=== PATIENT | male | born 1975 | race Caucasian/White ===

== ENCOUNTER 2016-12-25 17:22 | Emergency (ER) | payer BC ==
[~2016-12-25] VITALS: Ht 179.1 cm; Wt 75.0 kg
[~2016-12-25 17:22] MED LIST: ACET-1256 PO; ALBU1AER9 INH; ALPR-411 PO; ASPI-435 PO; CLX/20 PO; HYDR-5688 PO; IBUP-103 PO; LORA10TA57 PO; MULT1TAB30 PO; OMEP20CA9 PO; SYMIN160 INH; TRAZ50TA35 PO
[2016-12-25 17:39] VITALS: TEMP 36.9; Ht 179.1 cm; Wt 75.0 kg
[2016-12-25] MEDS ORDERED: VNTHFA/IN INH (18:08)
[2016-12-25] MEDS ORDERED: PRED10TA PO (18:09)
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
--- NOTE | 2016-12-25 19:35 | DIAGNOSTIC IMAGING REPORT ---
PA CHEST WITH RIGHT-SIDED RIB SERIES CLINICAL HISTORY: Right chest wall pain. FINDINGS: A PA chest radiograph with 4 additional views from a right-sided rib series is compared to study dated 03/23/2016. The cardiomediastinal silhouette is unremarkable. The lungs and pleural spaces are clear. No pneumothorax is seen. There is no radiographic evidence of right-sided rib fracture as clinically queried. Chronic posttraumatic deformity is noted in the right clavicle. The remainder of the bony thorax is grossly intact. IMPRESSION: 1. The lungs are clear. 2. There is no radiographic evidence of acute/distracted right-sided rib fracture as clinically queried. Electronically signed by: Ashu Bettencourt M.D. 12/25/2016 7:34 PM Dictated Date/Time: 12/25/2016 7:32 PM
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
[2016-12-25] MEDS ORDERED: KETOROLAC TROMETHAMINE 60 MG/2 ML VIAL IM STA (20:16)
[2016-12-25 20:37] VITALS: BP 132/75; PULSE 92; O2SAT 98
== END 2016-12-25 20:35 | disposition home or self-care (01) ==
LOC: C.EDB 17:23
DX: T14.8 Other injury of unspecified body region (principal); Y04.0XXA Assault by unarmed brawl or fight, initial encounter; J45.40 Moderate persistent asthma, uncomplicated; K21.9 Gastro-esophageal reflux disease without esophagitis; F17.200 Nicotine dependence, unspecified, uncomplicated; Z79.82 Long term (current) use of aspirin; Z96.659 Presence of unspecified artificial knee joint

== ENCOUNTER 2017-02-24 07:22 | Emergency (ER) | payer BC ==
[~2017-02-24] VITALS: Ht 175.3 cm; Wt 78.0 kg
[~2017-02-24 07:22] MED LIST changes: -ALBU1AER9 INH; -CLX/20 PO; -HYDR-5688 PO; +LORA-749 PO; -LORA10TA57 PO; +PRED10TA PO; +VNTHFA/IN INH
[2017-02-24 07:26] VITALS: TEMP 36.7; Ht 175.3 cm; Wt 78.0 kg
--- NOTE | 2017-02-24 07:54 | EMERGENCY ROOM VISIT NOTE ---
History First contact with patient: 07:31 Chief Complaint: LACERATION/CUT (SUT/DERMABOND) Stated Complaint: CUT ON HEAD Nursing Triage Summary: Patient states he tripped over a kitten this am and hit his head on a wooden drawer. Patient unsure if he passed out, but he got back up and fell back down. History of Present Illness The patient is a 41 year old male who presents to the Emergency Room with complaints of fall. The patient states that this morning he was walking down the steps and accidentally stepped on one of his cats foot or tail. He states that that caused him to fall down approximately 5 steps. He states that he hit his head on a wooden drawer. He reports a small laceration to the top of his head. The patient states that he then stood up very quickly and believes he passed out. He states he is having trouble concentrating. He reports a headache and neck pain. He rates his discomfort an 8/10. He states he has mild pain in the right shoulder but can move without any difficulty. He denies any pain in his chest or trouble breathing. He denies any abdominal pain. The patient states that he has had several recent head injuries and concussions. He does not take blood thinners. His tetanus is up-to-date. Review of Systems A 10 system review of systems was completed with positives and pertinent negatives listed in the HPI. Past Medical/Surgical History Medical Problems: (1) Allergic rhinitis (2) Asthma, moderate persistent (3) Compression fracture of spine (4) Depress Disorder-Unspec (5) Esophageal Reflux (6) GERD (gastroesophageal reflux disease) (7) Scoliosis (8) Tobacco use disorder Surgical Problems: (1) History of nasal septoplasty (2) History of repair of anterior cruciate ligament of left knee (3) History of repair of anterior cruciate ligament of right knee (4) Hx of total knee arthroplasty (5) Knee Joint Replacement Status Family History Cancer Gallbladder disease Heart disease Hypertension Lung disease Social History Smoking Status: Never Smoker Alcohol Use: occasionally Drug Use: none Marital Status: Housing Status: lives with family Occupation Status: employed Current/Historical Medications Scheduled Albuterol Hfa (Ventolin Hfa), 2 PUFFS INH Q4 Aspirin (Aspirin 81), 81 MG PO DAILY Budesonide/Formoterol Fumarate (Symbicort 160/4.5 Inhaler ), 2 PUFFS INH BID Citalopram Hydrobromide (Celexa), 10 MG PO DAILY Loratadine & Pseudoephedrine (Claritin-D 24 Hour), 1 TAB PO DAILY Multiple Vitamins W/ Minerals (Tonny Multivitamin For Men), 1 TABLET PO DAILY Omeprazole (Prilosec), 20 MG PO BID Testosterone (Testosterone), TOP QAM Scheduled PRN Acetaminophen (Tylenol), 1,500 MG PO Q8 PRN for Pain Alprazolam (Alprazolam), 0.5 MG PO DAILY PRN for Anxiety Ibuprofen Tab (Advil), 600 MG PO Q8 PRN for Pain Trazodone Hcl (Trazodone), 50-100 MG PO HS PRN for Sleep Allergies Coded Allergies: Animal Dander (Unverified Allergy, Mild, ITCHING EYES, SNEEZING,, 02/24/17) Uncoded Allergies: COLD WATER (Adverse Reaction, Intermediate, HIVES, 02/24/17) Physical Exam Vital Signs Date Time Temp Pulse Resp B/P Pulse Ox O2 Delivery O2 Flow Rate FiO2 02/24/17 09:09 96 20 150/91 99 02/24/17 07:26 36.7 104 18 120/82 97 Room Air Physical Exam VITALS: Vitals are noted on the nurse's note and reviewed by myself. Vital signs stable. GENERAL: This is a 41-year-old male, in no acute distress, nondiaphoretic, well- developed well-nourished. SKIN: The skin was without rashes, erythema, edema, or bruising. There is a small 1 cm gaping laceration to the top of the head. There is mild bleeding. There is no tenting of the skin. Capillary reflex less than 2 seconds. HEAD: Normocephalic atraumatic. EARS: External auditory canals clear, tympanic membranes pearly dixon without erythema or effusion bilaterally. No hemotympanums. No acevedo sign. No mastoid tenderness. EYES: Pupils equal round and reactive to light and accommodation. Conjunctivae without injection, sclerae without icterus. Extraocular movements intact. NOSE: Patent, turbinates without inflammation or discharge. No sinus tenderness. No septal hematoma or bleeding. FACE: No facial tenderness. Full range of motion of the jaw without tenderness. MOUTH: Mucous membranes moist. Pharynx without erythema or exudate. Uvula midline. Airway patent. Tongue does not deviate. NECK: Supple without nuchal rigidity. Cervical spine is mildly tender. Full range of motion of the neck without tenderness. No JVD. HEART: Regular rate and rhythm without murmurs gallops or rubs. LUNGS: Clear to auscultation bilaterally without wheezes, rales or rhonchi. No retractions or accessory muscle use. No chest tenderness. MUSCULOSKELETAL: No muscle atrophy, erythema, or edema noted. Full range of motion without joint tenderness in all extremities. No tenderness to palpation. Normal gait. Strength 5/5 throughout. NEURO: Patient was alert and oriented to person place and time. Normal Mini- Mental status exam. No focal neurological deficits. Medical Decision & Procedures ER Provider Diagnostic Interpretation: CT SCAN OF THE CERVICAL SPINE CLINICAL HISTORY: Fall. Neck pain. COMPARISON STUDY: CT scan of cervical spine dated 05/12/2015. TECHNIQUE: CT scan of the cervical spine is performed from the skull base to the upper thoracic spine. Images are reviewed in the axial, sagittal, and coronal planes. IV contrast was not administered for this examination. CT DOSE: 515.85 mGycm FINDINGS: Skeletal structures: The skeletal structures are well mineralized. There is no evidence of fracture or subluxation involving the cervical spine. Vertebral body height and alignment are maintained. The odontoid process and lateral masses are intact. The atlantoaxial articulation is preserved noting minimal productive degenerative change. The spinous processes appear intact. Mild degenerative sclerosis is seen at C4-C5. Chronic posttraumatic deformity suggested in the distal right clavicle. Intervertebral discs: There is mild degenerative disc space narrowing seen at C3-C4 and C4-C5. Central canal: A posterior discussed by complex at C4-C5 may contribute to mild acquired compromise of the central canal. Soft tissues: The prevertebral and paraspinous soft tissues are within normal limits. Calvarium: The visualized calvarium at the skull base appears intact. Brain parenchyma: Partially visualized brain parenchyma the skull base is within normal limits. Sinuses and mastoids: Trace mucosal thickening is seen within the left maxillary antrum and the ethmoid sinuses. The mastoid air cells are well pneumatized. Lung apices: Clear as visualized. IMPRESSION: There is no evidence of fracture or subluxation involving the cervical spine. HEAD CT NONCONTRAST CT DOSE: 729.78 mGycm HISTORY: fall, head injury TECHNIQUE: Multiaxial CT images of the head were performed without the use of intravenous contrast. Automated exposure control was utilized for this study. Comparison: Head CT 12/25/2016. Findings: The paranasal sinuses and mastoid air cells are clear. The calvarium and skull base are intact. The ventricles and sulci are within normal limits. There is no mass, hematoma, midline shift, or acute infarct. Impression: No acute intracranial abnormality. Medications Administered Medications (Trade) Dose Ordered Sig/Héctor Route Start Time Stop Time Status Last Admin Dose Admin Acetaminophen (Tylenol Tab) 1,000 mg NOW STAT PO 02/24/17 08:50 02/24/17 08:51 DC 02/24/17 08:55 1,000 MG Procedure A 1 cm scalp laceration was repaired. Using sterile technique the wound was cleaned with Betadine. The area was sterilely draped. the wound was copiously irrigated under pressure with sterile saline. The wound was explored and there were no deep structures such as tendons, bone, or ligaments present. The laceration was repaired using kaelyn with the wound edges being well approximated. The patient tolerated the procedure well. The bleeding stopped. The area was cleaned with sterile saline and dressed with bacitracin ointment and bandage. ED Course The patient was seen and examined. Previous visits were reviewed. The patient underwent the above imaging. There is no intracranial bleeding, skull fracture or cervical spine fracture. A small scalp laceration was repaired as above. The patient does have symptoms suggestive of concussion. He was given information for the concussion clinic for follow-up. He was given 1 g oral Tylenol. I cautioned on the use of any stronger pain medication such as narcotics in the setting of head injury. The patient should return to the ER with any worsening symptoms. Medical Decision The differential diagnosis includes intracranial bleeding, skull fracture, cervical spine fracture, contusion, laceration, concussion, among others Impression Primary Impression: Closed head injury Additional Impressions: Concussion Cervical strain Fall Scalp laceration Departure Information Dispostion Home / Self-Care Condition GOOD Referrals Miguelina Proctor DO (PCP) Patient Instructions Concussion, My [facility] Additional Instructions Motrin 600 mg every 6-8 hours for pain Contact the concussion clinic at [facility] sports medicine ([phone]) to schedule a follow-up appointment for further evaluation and management. Their office is located at [address] [place] [address]. [address] No vigorous activity or athletics for one week after symptoms resolve Return with any worsening symptoms Read head injury handout and return for any symptoms. Keep wound clean and dry. Do not allow any crusting or dried blood to accumulate on kaelyn. If this occurs, use a 1:1 solution of hydrogen peroxide/water on a Q-tip to clean the wound. Use an antibiotic ointment for 3-4 days, then let wound dry. Staple removal in 8 days. Return sooner for any signs of infection (increasing redness, swelling, drainage). Ice and elevate for swelling and pain. Problem Qualifiers Primary Impression: Closed head injury Encounter type: initial encounter Qualified Codes: S09.90XA - Unspecified injury of head, initial encounter Additional Impressions: Concussion Encounter type: initial encounter Cervical strain Encounter type: initial encounter Qualified Codes: S16.1XXA - Strain of muscle, fascia and tendon at neck level, initial encounter Fall Encounter type: initial encounter Qualified Codes: W19.XXXA - Unspecified fall, initial encounter Scalp laceration Encounter type: initial encounter Qualified Codes: S01.01XA - Laceration without foreign body of scalp, initial encounter
--- NOTE | 2017-02-24 08:36 | DIAGNOSTIC IMAGING REPORT ---
CT SCAN OF THE CERVICAL SPINE CLINICAL HISTORY: Fall. Neck pain. COMPARISON STUDY: CT scan of cervical spine dated 05/12/2015. TECHNIQUE: CT scan of the cervical spine is performed from the skull base to the upper thoracic spine. Images are reviewed in the axial, sagittal, and coronal planes. IV contrast was not administered for this examination. CT DOSE: 515.85 mGycm FINDINGS: Skeletal structures: The skeletal structures are well mineralized. There is no evidence of fracture or subluxation involving the cervical spine. Vertebral body height and alignment are maintained. The odontoid process and lateral masses are intact. The atlantoaxial articulation is preserved noting minimal productive degenerative change. The spinous processes appear intact. Mild degenerative sclerosis is seen at C4-C5. Chronic posttraumatic deformity suggested in the distal right clavicle. Intervertebral discs: There is mild degenerative disc space narrowing seen at C3-C4 and C4-C5. Central canal: A posterior discussed by complex at C4-C5 may contribute to mild acquired compromise of the central canal. Soft tissues: The prevertebral and paraspinous soft tissues are within normal limits. Calvarium: The visualized calvarium at the skull base appears intact. Brain parenchyma: Partially visualized brain parenchyma the skull base is within normal limits. Sinuses and mastoids: Trace mucosal thickening is seen within the left maxillary antrum and the ethmoid sinuses. The mastoid air cells are well pneumatized. Lung apices: Clear as visualized. IMPRESSION: There is no evidence of fracture or subluxation involving the cervical spine. Electronically signed by: Ashu Bettencourt M.D. 02/24/2017 8:34 AM Dictated Date/Time: 02/24/2017 8:29 AM
[2017-02-24] MEDS ORDERED: CITA10TA8 PO (08:37)
[2017-02-24] MEDS ORDERED: TEST1GEL15 TOP (08:39)
[2017-02-24] MEDS ORDERED: ACETAMINOPHEN 500 MG TAB PO STA (08:50)
--- NOTE | 2017-02-24 08:52 | DIAGNOSTIC IMAGING REPORT ---
HEAD CT NONCONTRAST CT DOSE: 729.78 mGycm HISTORY: fall, head injury TECHNIQUE: Multiaxial CT images of the head were performed without the use of intravenous contrast. Automated exposure control was utilized for this study. Comparison: Head CT 12/25/2016. Findings: The paranasal sinuses and mastoid air cells are clear. The calvarium and skull base are intact. The ventricles and sulci are within normal limits. There is no mass, hematoma, midline shift, or acute infarct. Impression: No acute intracranial abnormality. Electronically signed by: Cayetano Morris M.D. 02/24/2017 8:51 AM Dictated Date/Time: 02/24/2017 8:47 AM
[2017-02-24 09:09] VITALS: BP 150/91; PULSE 96; O2SAT 99
== END 2017-02-24 09:11 | disposition home or self-care (01) ==
LOC: C.EDB 07:22
DX: S01.01XA Laceration without foreign body of scalp, initial encounter (principal); S16.1XXA Strain of muscle, fascia and tendon at neck level, initial encounter; S06.0X0A Concussion without loss of consciousness, initial encounter; W10.9XXA Fall (on) (from) unspecified stairs and steps, initial encounter; J45.40 Moderate persistent asthma, uncomplicated; K21.9 Gastro-esophageal reflux disease without esophagitis; F32.9 Major depressive disorder, single episode, unspecified; M41.9 Scoliosis, unspecified; Z96.659 Presence of unspecified artificial knee joint; Z82.49 Family history of ischemic heart disease and other diseases of the circulatory system; Z80.9 Family history of malignant neoplasm, unspecified; Z79.82 Long term (current) use of aspirin; Z79.899 Other long term (current) drug therapy

== ENCOUNTER → 2017-09-29 | Outpatient (CLI) | payer BC ==
[~2017-09-29] MED LIST changes: +CITA10TA8 PO; -PRED10TA PO; +TEST1GEL15 TOP
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
== END | disposition home or self-care (01) ==
LOC: C.RAD 19:08
PROVIDERS: ATTEND Family Medicine
DX: S62.609A Fracture of unspecified phalanx of unspecified finger, initial encounter for closed fracture (principal); M25.539 Pain in unspecified wrist; S59.811A Other specified injuries right forearm, initial encounter; X58.XXXA Exposure to other specified factors, initial encounter; M21.941 Unspecified acquired deformity of hand, right hand

== ENCOUNTER → 2017-09-30 | Outpatient (CLI) | payer BC ==
--- NOTE | 2017-09-30 15:28 | DIAGNOSTIC IMAGING REPORT ---
R FINGER(S) MIN 2 VIEWS HISTORY: 42 years-old Male CRUSH INJURY RIGHT 3RD FINGER acute crush injury of the right third finger COMPARISON: Right hand radiographs 09/29/2017 TECHNIQUE: 3 views of the right third finger FINDINGS: There is moderate soft tissue swelling of the right third finger. No opaque foreign body, acute fracture or dislocation. There are no significant degenerative changes. IMPRESSION: Moderate soft tissue swelling without acute bony abnormality or opaque foreign body. The above report was generated using voice recognition software. It may contain grammatical, syntax or spelling errors. Electronically signed by: Antonio Fields M.D. 09/30/2017 3:27 PM Dictated Date/Time: 09/30/2017 3:26 PM
== END ==
LOC: C.RDSM 15:09
PROVIDERS: ATTEND Family Medicine
DX: S69.91XA Unspecified injury of right wrist, hand and finger(s), initial encounter (principal); X58.XXXA Exposure to other specified factors, initial encounter

== ENCOUNTER 2018-03-07 16:07 | Emergency (ER) | payer BC, OTHER ==
[~2018-03-07] VITALS: Ht 175.3 cm; Wt 86.1 kg
[2018-03-07 16:24] VITALS: TEMP 37.6; Ht 175.3 cm; Wt 86.1 kg
[2018-03-07] MEDS ORDERED: ALBUT/IPRATROP 3MG/0.5MG NEB 3 ML VIAL INH STA ×2 (17:52→18:56)
[2018-03-07] MEDS ORDERED: SODIUM CHLORIDE 0.9% 1000ML 1,000 ML IV STA (17:52)
[2018-03-07] MEDS ORDERED: KETOROLAC TROMETHAMINE 30 MG/ML VIAL IV STA (17:52)
[2018-03-07 18:12] VITALS: BP 128/85; O2SAT 96
[2018-03-07 18:18] LABS: BASO % 0.5 %; BASO ABS # 0.03 K/uL (0-0.2); EOS % 5.4 %; EOS ABS # 0.31 K/uL (0-0.5); HEMATOCRIT 38.7 % (42-52); HEMOGLOBIN 13.4 g/dL (14.0-18.0); IG# 0.01 K/uL (0.00-0.02); LYMPH % 15.1 %; LYMPH ABS # 0.87 K/uL (1.2-3.4); MEAN CELL VOLUME 86.6 fL (80-100); MEAN CORPUSCULAR HGB CONC 34.6 g/dl (32-36); MONO % 13.7 %; MONO ABS # 0.79 K/uL (0.11-0.59); NEUT % 65.1 %; NEUT ABS # 3.76 K/uL (1.4-6.5); PLATELET COUNT 207 K/uL (130-400); RED CELL DISTRIBUTION WIDTH CV 13.3 % (11.5-14.5); RED CELL DISTRIBUTION WIDTH SD 42.3 fL (36.4-46.3); WHITE BLOOD COUNT 5.77 K/uL (4.8-10.8)
[2018-03-07 18:36] LABS: ALBUMIN 3.3 gm/dl (3.4-5.0); ALT/SGPT 18 U/L (12-78); AST/SGOT 9 U/L (15-37); BLOOD UREA NITROGEN 7 mg/dl (7-18); CALCIUM 8.5 mg/dl (8.5-10.1); CARBON DIOXIDE 25 mmol/L (21-32); CREATININE 0.78 mg/dl (0.60-1.40); GLUCOSE 85 mg/dl (70-99); POTASSIUM 3.4 mmol/L (3.5-5.1); SODIUM 138 mmol/L (136-145)
[2018-03-07 18:40] LABS: ALKALINE PHOSPHATASE 93 U/L (45-117); TOTAL PROTEIN 6.8 gm/dl (6.4-8.2)
[2018-03-07 18:49] LABS: INFLUENZA B ANTIGEN Neg for Influ B (NEG)
--- NOTE | 2018-03-07 18:53 | DIAGNOSTIC IMAGING REPORT ---
CHEST 2 VIEWS ROUTINE CLINICAL HISTORY: chest pain, congestion COMPARISON STUDY: 03/23/2016 FINDINGS: The cardiac and mediastinal contours are normal. There is no evidence of focal pulmonary consolidation. There is no evidence of failure. No pleural effusions are visualized.[ There is minor interstitial prominence which is felt to be chronic. IMPRESSION: No active disease in the chest. Electronically signed by: Tarun Jimenez M.D. 03/07/2018 6:51 PM Dictated Date/Time: 03/07/2018 6:51 PM
[2018-03-07] MEDS ORDERED: AMOX875T PO (19:19)
--- NOTE | 2018-03-07 19:20 | EMERGENCY ROOM VISIT NOTE ---
History First contact with patient: 17:44 Chief Complaint: FLU LIKE SX Stated Complaint: FEVER, FATIGUE, BODYACHES, TROUBLE BREATHING History of Present Illness The patient is a 42 year old male who presents to the Emergency Room via private vehicle with complaints of "fever, fatigue, body aches, trouble breathing". The patient states that he has a history of asthma, and last week began with cold-like symptoms in the chest. He states that Tuesday these increased and now he has pain on the left side of his chest, he has a cough with production of yellow tinged sputum that was clear but again is now colored. He also has sinus congestion, sore throat and diffuse body aches. He notes a history of pneumonia, asthma and pleurisy. Review of Systems A complete 10-point Review of Systems was discussed with the patient, with pertinent positives and negatives listed in the History of Present Illness. All remaining Review of Systems questions can be considered negative unless otherwise specified. Past Medical/Surgical History Medical Problems: (1) Allergic rhinitis (2) Asthma, moderate persistent (3) Compression fracture of spine (4) Depress Disorder-Unspec (5) Esophageal Reflux (6) GERD (gastroesophageal reflux disease) (7) Scoliosis (8) Tobacco use disorder Surgical Problems: (1) History of nasal septoplasty (2) History of repair of anterior cruciate ligament of left knee (3) History of repair of anterior cruciate ligament of right knee (4) Hx of total knee arthroplasty (5) Knee Joint Replacement Status Family History Cancer Gallbladder disease Heart disease Hypertension Lung disease Social History Smoking Status: Never Smoker Alcohol Use: occasionally Drug Use: none Marital Status: Housing Status: lives with family Occupation Status: employed Current/Historical Medications Scheduled Albuterol Hfa (Ventolin Hfa), 2 PUFFS INH Q4 Amoxicillin & Pot Clavulanate (Augmentin 875-125 mg), 1 TAB PO BID Aspirin (Aspirin 81), 81 MG PO DAILY Budesonide/Formoterol Fumarate (Symbicort 160/4.5 Inhaler ), 2 PUFFS INH BID Citalopram Hydrobromide (Celexa), 10 MG PO DAILY Loratadine & Pseudoephedrine (Claritin-D 24 Hour), 1 TAB PO DAILY Multiple Vitamins W/ Minerals (Tonny Multivitamin For Men), 1 TABLET PO DAILY Omeprazole (Prilosec), 20 MG PO BID Testosterone (Testosterone), TOP QAM Scheduled PRN Acetaminophen (Tylenol), 1,500 MG PO Q8 PRN for Pain Alprazolam (Alprazolam), 0.5 MG PO DAILY PRN for Anxiety Ibuprofen Tab (Advil), 600 MG PO Q8 PRN for Pain Trazodone Hcl (Trazodone), 50-100 MG PO HS PRN for Sleep Physical Exam Vital Signs Date Time Temp Pulse Resp B/P (MAP) Pulse Ox O2 Delivery O2 Flow Rate FiO2 03/07/18 19:35 89 18 97 03/07/18 18:26 92 03/07/18 18:12 96 Room Air 03/07/18 18:12 87 15 128/85 97 Room Air 03/07/18 16:24 37.6 84 18 118/89 97 Room Air Physical Exam VITAL SIGNS - Vital signs and nursing notes were reviewed. Stable. Febrile at 37.6. GENERAL -42-year-old male appearing his stated age who is in no acute distress. Nontoxic in appearance. Communicates well with provider and answers questions appropriately. SKIN - Without rashes. No meningeal or petechial rash. HEAD - NC/AT. EYES - PERRL with EOMI bilaterally. Sclera anicteric. EARS - No deformities of external structures noted on gross examination bilaterally. External auditory canals without discharge or otorrhea. Tympanic membranes pearly dixon without retraction or bulging. No fluid or purulent material visualized behind the TM. Handle of malleus, umbo, cone of light, pars tensa/flaccid all easily visualized. NOSE - Midline and without cyanosis. No epistaxis or purulent drainage noted. MOUTH/OROPHARYNX - Without perioral cyanosis. Buccal mucosa pink and moist and without leukoplakia. Tongue midline with equal elevation of palate bilaterally. No tonsillar hypertrophy, erythema, or exudates noted. Fair dentition noted. NECK - Neck with FROM. Supple to palpation. No lymphadenopathy noted. No nuchal rigidity. LUNGS - Chest wall symmetric without accessory muscle use, intercostals retractions, or central cyanosis. Diffuse wheezing noted. CARDIAC - RRR with S1/S2. No murmur, rubs, or gallops appreciated. ABDOMEN - Abdominal contour normal without pulsations or visible masses. BS normoactive all four quadrants. No tenderness, palpable masses, hepatosplenomegaly, or ascites noted. EXTREMITIES - No clubbing or peripheral cyanosis. No pretibial edema present. +5 /5 strength noted in UE/LE bilaterally. NEUROLOGIC - Cranial nerves II through XII grossly intact. Sensory intact to light touch throughout. PSYCH - A&O, and cooperates fully with examiner. Pt is very pleasant and interacts well with examiner. Medical Decision & Procedures ER Provider Diagnostic Interpretation: CHEST 2 VIEWS ROUTINE CLINICAL HISTORY: chest pain, congestion COMPARISON STUDY: 03/23/2016 FINDINGS: The cardiac and mediastinal contours are normal. There is no evidence of focal pulmonary consolidation. There is no evidence of failure. No pleural effusions are visualized.[ There is minor interstitial prominence which is felt to be chronic. IMPRESSION: No active disease in the chest. Electronically signed by: Tarun Jimenez M.D. 03/07/2018 6:51 PM Dictated Date/Time: 03/07/2018 6:51 PM Laboratory Results 03/07/18 18:06 Red Blood Count 4.47, Mean Corpuscular Volume 86.6, Mean Corpuscular Hemoglobin 30.0, Mean Corpuscular Hemoglobin Concent 34.6, Mean Platelet Volume 9.0, Neutrophils (%) (Auto) 65.1, Lymphocytes (%) (Auto) 15.1, Monocytes (%) (Auto) 13.7, Eosinophils (%) (Auto) 5.4, Basophils (%) (Auto) 0.5, Neutrophils # (Auto ) 3.76, Lymphocytes # (Auto) 0.87, Monocytes # (Auto) 0.79, Eosinophils # (Auto ) 0.31, Basophils # (Auto) 0.03 03/07/18 18:06 Test 03/07/18 18:06 03/07/18 18:15 White Blood Count 5.77 K/uL (4.8-10.8) Red Blood Count 4.47 M/uL (4.7-6.1) Hemoglobin 13.4 g/dL (14.0-18.0) Hematocrit 38.7 % (42-52) Mean Corpuscular Volume 86.6 fL (80-100) Mean Corpuscular Hemoglobin 30.0 pg (25-34) Mean Corpuscular Hemoglobin Concent 34.6 g/dl (32-36) Platelet Count 207 K/uL (130-400) Mean Platelet Volume 9.0 fL (7.4-10.4) Neutrophils (%) (Auto) 65.1 % Lymphocytes (%) (Auto) 15.1 % Monocytes (%) (Auto) 13.7 % Eosinophils (%) (Auto) 5.4 % Basophils (%) (Auto) 0.5 % Neutrophils # (Auto) 3.76 K/uL (1.4-6.5) Lymphocytes # (Auto) 0.87 K/uL (1.2-3.4) Monocytes # (Auto) 0.79 K/uL (0.11-0.59) Eosinophils # (Auto) 0.31 K/uL (0-0.5) Basophils # (Auto) 0.03 K/uL (0-0.2) RDW Standard Deviation 42.3 fL (36.4-46.3) RDW Coefficient of Variation 13.3 % (11.5-14.5) Immature Granulocyte % (Auto) 0.2 % Immature Granulocyte # (Auto) 0.01 K/uL (0.00-0.02) Anion Gap 6.0 mmol/L (3-11) Est Creatinine Clear Calc Drug Dose 134.2 ml/min Estimated GFR () 129.0 Estimated GFR (Non- 111.3 BUN/Creatinine Ratio 8.6 (10-20) Calcium Level 8.5 mg/dl (8.5-10.1) Magnesium Level 2.2 mg/dl (1.8-2.4) Total Bilirubin 0.2 mg/dl (0.2-1) Aspartate Amino Transf (AST/SGOT) 9 U/L (15-37) Alanine Aminotransferase (ALT/SGPT) 18 U/L (12-78) Alkaline Phosphatase 93 U/L (45-117) Troponin I < 0.015 ng/ml (0-0.045) Total Protein 6.8 gm/dl (6.4-8.2) Albumin 3.3 gm/dl (3.4-5.0) Globulin 3.5 gm/dl (2.5-4.0) Albumin/Globulin Ratio 0.9 (0.9-2) Monoscreen NEG (NEG) Influenza Type A Antigen Neg for Influ A (NEG) Influenza Type B Antigen Neg for Influ B (NEG) Medications Administered Medications (Trade) Dose Ordered Sig/Héctor Route Start Time Stop Time Status Last Admin Dose Admin Sodium Chloride 1,000 ml @ 999 mls/hr Q1H1M STAT IV 03/07/18 17:52 03/07/18 18:52 DC 03/07/18 18:12 999 MLS/HR Ketorolac Tromethamine (Toradol Inj) 30 mg NOW STAT IV 03/07/18 17:52 03/07/18 17:54 DC 03/07/18 18:12 30 MG Albuterol/ Ipratropium (Duoneb) 3 ml NOW STAT INH 03/07/18 17:52 03/07/18 17:55 DC 03/07/18 18:11 3 ML Albuterol/ Ipratropium (Duoneb) 3 ml NOW STAT INH 03/07/18 18:56 03/07/18 18:57 DC 03/07/18 18:56 3 ML Medical Decision Patient was seen and evaluated as above in room D9. Review was performed of nursing notes and vital signs. After obtaining a thorough history and physical examination the above work up was performed. Chest x-ray obtained and reveals only chronic findings. Bedside EKG per my interpretation reveals normal sinus rhythm, without ectopy or ischemic change. This was a rate of 89 bpm. This was compared to EKG of March 23, 2016 and no significant change was found. CBC reveals no concerning leukocytosis. Slight anemia with hemoglobin of 13.4 noted. This was discussed with the patient. Metabolic panel reveals no evidence of kidney or liver failure. Troponin negative. Slight hypokalemia. Negative for mono screen, and influenza. I suspect he is likely experiencing a flulike illness that has exacerbated his underlying chronic asthma. No evidence of PE. Given that the patient has a sore throat, has constitutional symptoms and felt much better after receiving a DuoNeb and has wheezing I favor a PE to be much less likely. Given a negative troponin and normal EKG believe that PE/IA is also much less likely. He is to use his nebulizer at home/rescue inhaler as well as take the Augmentin which was prescribed secondary to how long he has been experiencing symptoms as well as his risk for developing pneumonia with his asthma. He is to call his family doctor/digital media coordinator to schedule follow-up or return with worsening. The patient was educated upon management, had questions answered prior to discharge, and was discharged home in good condition. Case was discussed with the attending physician. In the evaluation and treatment of this patient the following differential diagnoses were entertained: IA, PE, pneumonia, pericarditis, costochondritis, acute asthma exacerbation, viral illness, among others. Impression Primary Impression: Influenza-like symptoms Additional Impressions: Anemia Hypokalemia Departure Information Dispostion Home / Self-Care Condition GOOD Prescriptions Amoxicillin & Pot Clavulanate (Augmentin 875-125 mg) 1 Tab Tab 1 TAB PO BID for 10 Days, #20 TAB Prov: Chandu Pulido PA-C 03/07/18 Referrals Miguelina Proctor DO (PCP) Patient Instructions Hypokalemia [place], [facility] Additional Instructions You were seen in the emergency department for your sore throat, cough and congestion and chest pain. The results of your rapid strep screen were found to be negative. You will be contacted in 48-72 hrs if the results of your culture are found to be positive and any change in antibiotics is necessary. You were prescribed Augmentin to be taken every 12 hours. This is an antibiotic. All antibiotics have the potential to cause diarrhea. Stop this medication and contact a medical provider if you were to develop any significant adverse side effects including: wheezing, shortness of breath, passing out, vomiting, or a diffuse rash. Always take antibiotics as directed and COMPLETE the ENTIRE course regardless of the improvement of your symptoms. For pain and fever control, you can use the following [id number] medicines (if >12 yo): - Regular strength (325mg/tab) Tylenol (acetaminophen) 2 tabs every 4-6 hours as needed. Do not exceed 12 tablets in a 24 hour period. Avoid taking more than 3 grams (3000 mg) of Tylenol per day. This includes any other sources of acetaminophen you may take on a regular basis. - Regular strength (200 mg/tab) Advil (ibuprofen) 1-2 tabs every 4-6 hours as needed. Do not exceed a dose of 3200 mg per day. - For best results, alternate dosing of Tylenol and Advil. In addition to your prescribed medications, you can also use the following home remedies: - Warm salt-water gargles 3 times per day can soothe your throat and help to fight infection. - Warm tea with honey can soothe your throat. Return to the emergency department if your symptoms persist or worsen over the next 2-3 days despite treatment course outlined above. Return to the emergency department if you develop the following symptoms of: inability to swallow solids , liquids, or drool; excessive wheezing or inability to catch your breath; or intractable fever or pain. Follow up with your primary care provider in 2-3 days from today's emergency department visit. Problem Qualifiers
[2018-03-07 19:35] VITALS: PULSE 89; O2SAT 97
== END 2018-03-07 19:36 | disposition home or self-care (01) ==
LOC: C.EDB 16:08 → C.EDD 19:36
DX: R50.9 Fever, unspecified (principal); D64.9 Anemia, unspecified; E87.6 Hypokalemia; R53.83 Other fatigue; F32.9 Major depressive disorder, single episode, unspecified; M41.9 Scoliosis, unspecified; Z96.659 Presence of unspecified artificial knee joint; Z82.49 Family history of ischemic heart disease and other diseases of the circulatory system; Z79.899 Other long term (current) drug therapy

== ENCOUNTER 2019-04-10 16:29 | Inpatient (IN) ==
[2019-04-10] MEDS ORDERED: SODIUM CHLORIDE 0.9% 1000ML 1,000 ML IV SCH (16:30)
[2019-04-10] MEDS ORDERED: RAPID SEQUENCE INDUCTION BAG ONE (16:35)
[2019-04-10 17:00] LABS: Basophils # (auto) 0.04 K/uL (0-0.2); Basophils % (auto) 0.5 %; Eosinophils # (auto) 0.25 K/uL (0-0.5); Hematocrit (blood only) 45.7 % (42-52); Hemoglobin 16.2 g/dL (14.0-18.0); Immature Granulocytes # (auto) 0.01 K/uL (0.00-0.02); Immature Granulocytes % (auto) 0.1 %; Lymphocytes # (auto) 1.43 K/uL (1.2-3.4); Lymphocytes % (auto) 16.9 %; Mean Corpuscular Hgb Conc 35.4 g/dL (32-36); Mean Corpuscular Volume 84.8 fL (80-100); Monocytes # (auto) 0.63 K/uL (0.11-0.59); Monocytes % (auto) 7.5 %; Neutrophils # (auto) 6.09 K/uL (1.4-6.5); Platelet Count 276 K/uL (130-400); RDW Coefficient of Variation 13.3 % (11.5-14.5); RDW Standard Deviation 40.9 fL (36.4-46.3); Red Blood Count 5.39 M/uL (4.7-6.1); White Blood Count 8.45 K/uL (4.8-10.8)
--- NOTE | 2019-04-10 17:01 | XRay Report ---
XR chest 1V portable CLINICAL HISTORY: OD dyspnea. Tube position. COMPARISON STUDY: 01/24/2019 FINDINGS: Endotracheal tube placed 3 cm above the donte. Lungs are considered clear. No evidence for pneumothorax. IMPRESSION: Endotracheal tube placed 3 cm above the donte. The lungs are clear. The above report was generated using voice recognition software. It may contain grammatical, syntax or spelling errors. Electronically signed by: Jeff Becerril M.D. 04/10/2019 5:00 PM
[2019-04-10 17:18] LABS: Appearance Urine Clear (Clear); Bilirubin Urine Negative (Negative); Blood Urine Negative (Negative); Color Urine Dark Yellow; Glucose Urine UA Negative (Negative); Ketones Urine Trace (Negative); Leukocyte Esterase Urine Negative (Negative); Nitrite Urine Negative (Negative); Protein Urine Negative (Negative); Specific Gravity Urine 1.024 (1.000-1.030); Urobilinogen Urine Negative (Negative)
[2019-04-10 17:19] LABS: Alanine Aminotransferase 19 U/L (12-78); Albumin Level 3.9 gm/dl (3.4-5.0); Aspartate Aminotransferase 11 U/L (15-37); BUN Creatinine Ratio 9.6 (10-20); Blood Urea Nitrogen 9 mg/dl (7-18); Calcium 9.7 mg/dl (8.5-10.1); Carbon Dioxide 25 mmol/L (21-32); Chloride 107 mmol/L (98-107); Est GFR (Non-African American) 95.7; Glucose 104 mg/dl (70-99); Magnesium 2.4 mg/dl (1.8-2.4); Potassium 4.3 mmol/L (3.5-5.1); Sodium 140 mmol/L (136-145)
[2019-04-10] MEDS ORDERED: PROPOFOL IV EMULSION 10 MG/ML 100 ML VIAL IV ONE (17:21)
[2019-04-10 17:24] LABS: Alkaline Phosphatase 99 U/L (45-117); Bilirubin,Total 0.4 mg/dl (0.2-1); Creatine Kinase 52 U/L (39-308); Total Protein 7.9 gm/dl (6.4-8.2); Troponin I < 0.015 ng/ml (0-0.045)
[2019-04-10 17:29] LABS: Acetaminophen < 2 ug/ml (10-30)
[2019-04-10 17:30] LABS: Salicylate < 1.7 mg/dl (2.8-20)
[2019-04-10] MEDS ORDERED: PROPOFOL 1,000 MG/100 ML VIAL IV SCH (17:30)
[2019-04-10] MEDS ORDERED: MIDAZOLAM HCL 5 MG/ML 1 ML VIAL IV STA ×2 (17:42→17:52)
[2019-04-10] MEDS ORDERED: MIDAZOLAM HCL 1 MG/ML 2ML VIAL ONE (17:43)
[2019-04-10 17:45] LABS: Amphetamines+Metham, Urine Neg (Neg); Barbiturates, Urine Neg (Neg); Benzodiazepine, Urine Pos (Neg); Cocaine, Urine Pos (Neg); MDMA (Ecstacy), Urine Pos (Neg); Methadone, Urine Neg (Neg); Opiate, Urine Neg (Neg); Phencyclidine, Urine Neg (Neg)
[2019-04-10] MEDS ORDERED: fentaNYL citrate 100 MCG/2 ML VIAL ONE ×2 (17:52)
[2019-04-10] MEDS ORDERED: fentaNYL citrate 100 MCG/2 ML VIAL IV ONE (17:52)
[2019-04-10] MEDS ORDERED: ALBUT/IPRATROP 3MG/0.5MG NEB 3 ML VIAL NEB STA (18:03)
--- NOTE | 2019-04-10 18:11 | XRay Report ---
XR chest 1V portable CLINICAL HISTORY: tightness dyspnea COMPARISON STUDY: 04/10/2019 4:46 PM FINDINGS: Endotracheal tube has been pulled back. It is now approximately level of T2 and is 7.5 cm b oth donte. Minimal plaque atelectasis left base. Lungs otherwise appear clear. IMPRESSION: Endotracheal tube has been pulled back and is now at the thoracic inlet 7.5 cm above the donte. Minimal atelectatic atelectasis left base. The above report was generated using voice recognition software. It may contain grammatical, syntax or spelling errors. Electronically signed by: Jeff Becerril M.D. 04/10/2019 6:09 PM
[2019-04-10 18:31] LABS: HCO3 ABG 23 mmol/L (19-24); Oxygen Saturation ABG 96.3 % (90-95); PCO2 ABG 38 mmHg (35-46); PO2 ABG 82 mm/Hg (80-95)
[2019-04-10 18:43] LABS: Allen Test Pos (Pos)
[2019-04-10] MEDS ORDERED: BISACODYL 10 MG SUPP PR PRN (19:45)
[2019-04-10] MEDS ORDERED: ALBUTEROL 0.5% NEB SOLN 2.5 MG/0.5 ML VIAL NEB PRN (19:45)
[2019-04-10] MEDS ORDERED: DOCUSATE SODIUM 100 MG CAP PO PRN (19:45)
[2019-04-10] MEDS ORDERED: ACETAMINOPHEN 65 ML IV PRN (19:45)
[2019-04-10] MEDS ORDERED: ICU PROTOCOL FOR HYPERGLYCEMIA PRN (19:45)
--- NOTE | 2019-04-10 20:33 | History & Physical Report ---
Date of Service April 10, 2019 Assessment & Plan (1) Polysubstance overdose: Uncertain what agents and how much patient took. Suspect Zoloft and Klonazepam per history. Patient also positive for THC, Cocaine, MDMA. EtOH, ASA and Acetaminophen levels ok. CBC, Chemistry, ABG, UA unremarkable. No osmolar gap. EKG with narrow complex tachycardia. S/p intubation for airway protection with subsequent extubation. No respiratory distress or stridor. -Cardiac monitoring -Hold home medications for now, Zoloft and Clonazepam -Psychiatry consult -IVF and electrolyte repletion Present on Admission?: Yes (2) Suicide gesture: As above. Patient with history of depression, increased life stressors to include recent DUI and marital discord. Prior history of SI with no action. Patient still feeling depressed. -Psychiatry consultation Present on Admission?: Yes (3) Pancreatitis: Elevated lipase, abdominal exam benign. LFTs with no suggestion of obstructive disease or hepatitis. -LR -Check RUQUS -Repeat LFTs in AM Present on Admission?: Yes (4) Asthma, moderate persistent: Chronic. Stable. -Albuterol PRN -Closely monitor respiratory status for depression, stridor (5) GERD (gastroesophageal reflux disease): Chronic. Stable -Continue Omeprazole F/E/N - LR, monitor electrolytes and replete as needed, NPO for now, advance diet as tolerated if mental and respiratory status remain stable Ppx - Continue Omeprazole Code - Full per discussion with patient Dispo - MICU History of Present Illness Chief Complaint: Intentional overdose Primary Care Provider: NO PCP Mr. Mckeon is a 44yo male with history of depression, asthma and GERD presenting with intentional overdose. Patient is a poor historian and does not provide a clear description of his actions leading up to his admission. Per report, patient recently had some legal issues and was given a DUI with potential senior living time in the future. Additionally he complains of some marital discord and increased depression and stress. states that he made some comments about ending his life rather than going to senior living. He was last seen normal this AM around 11:30 AM. His received a phone call from him in the afternoon asking her to come home early from work. When she got home around 15:00 he was sleeping on the couch which she states is not atypical for him. She went out to the front porch then heard a "thud" from the living room. When she returned to the living room the patient had fallen off the couch and was minimally responsive with slurred speech. She reports that he had fecal and urinary incontinence and became less responsive over time. reports empty pill bottles in the bedroom - she thinks they were Zoloft and Clonazepam. Patient intubated in the ER for airway protection and was started on Propofol gtt. He was requiring large amounts of Propofol and Versed. He partially self- extubated then the ETT was removed by the ER staff. Patient presently unable to quantify the amount of pills he took. Says he took "a handful of something". He denies Tylenol use, EtOH. Admits to marijuana use otherwise no recreational drugs. A complete ROS is difficulyt to obtain, however, patient only complaining only of right leg pain from a tibial plateau fracture. Allergies Allergy/AdvReac Type Severity Reaction Status Date / Time animal dander Allergy Mild ITCHING Unverified 04/10/19 17:33 EYES, SNEEZING, COLD WATER AdvReac Intermediate HIVES Uncoded 04/10/19 17:33 Home Medications Home Medications Medication Instructions Recorded Confirmed Type acetaminophen [Tylenol Extra 1,000 mg PO Q8 PRN 09/10/18 04/10/19 History Strength] albuterol sulfate 2 puff INHALATION QID PRN 09/10/18 04/10/19 History aspirin [Aspir-Low] 81 mg PO DAILY 09/10/18 04/10/19 History ibuprofen [Advil] 600 mg PO Q8 PRN 09/10/18 04/10/19 History loratadine-pseudoephedrine 1 tab PO DAILY 09/10/18 04/10/19 History [Claritin-D 24 Hour] omeprazole 20 mg PO DAILY 09/10/18 04/10/19 History sertraline [Zoloft] 100 mg PO DAILY 09/10/18 04/10/19 History testosterone 1 g TOPICAL DAILY 09/10/18 04/10/[address] Nasal [place] 0 spray NOT APPLICABLE UD 04/10/19 04/10/19 History calcium polycarbophil [Fiber-Tabs] 1,250 mg PO DAILY 04/10/19 04/10/19 History cholecalciferol (vitamin D3) 50,000 unit PO WK 04/10/19 04/10/19 History clonazepam [Klonopin] 0.5 mg PO BID 04/10/19 04/10/19 History docusate sodium 100 mg PO DAILY PRN 04/10/19 04/10/19 History lactobacillus combination no.4 0 mmu cells PO DAILY 04/10/19 04/10/19 History [Probiotic] Past Med/Surg History Medical History Scoliosis (Chronic) Asthma, moderate persistent (Chronic) Compression fracture of spine (Chronic) Allergic rhinitis (Chronic) Tobacco use disorder (Chronic) GERD (gastroesophageal reflux disease) (Chronic) Cervical strain (Acute) Closed head injury (Acute) Concussion (Acute) Fall (Acute) Scalp laceration (Acute) Depression Prior SI, per no prior suicide attempts Surgical History History of repair of anterior cruciate ligament of left knee (Resolved) " L ACL 1997" Hx of total knee arthroplasty (Resolved) "L knee 11/2014" History of nasal septoplasty (Resolved) "Dr Coelho ([place]), [facility] [place], [place], [place] 04/2004" Family History Other Coronary heart disease Social History marital status: Current Living Situation: Spouse current occupational status: employed Feels Safe at Home: Declines to Answer Smoking Status: Unknown if ever smoked Hx Alcohol Use: Yes (occasionally) Hx Substance Use: Yes substance use type: marijuana Review of Systems Review of Systems: Unobtainable due to cognitive status Physical Exam Physical Exam: General: patient resting comfortably, NAD, non-toxic in appearance, AA&O Skin: warm, dry, intact, no rashes or lesions HEENT: NC/AT, PERRL, EOMI, anicteric sclera, conjunctiva without injection, external ear normal to inspection and nontender, nares patent, moist mucus membranes, dentition intact, no oropharyngeal lesions, neck supple, trachea midline, no LAD, no thyromegaly, no JVD Heart: +S1/S2, regular, tachycardic, no m/r/g Lungs: equal air entry bilaterally, no rales/rhonchi/wheezes Abd: +BS, soft, NT/ND, no masses/organomegaly/ascites Ext: warm, 2+ pulses in UE/LE bilaterally, no clubbing/cyanosis or edema Neuro: nonfocal, patient AA&O x 4, speech intact, no facial droop, moving all extremities on command with equal strength 5/5 Results & Data Vital Signs (Past 12 Hours) Vital Signs Temp Pulse Pulse Resp BP BP Pulse Ox 04/10/19 19:16 113 H 20 117/97 95 04/10/19 19:00 114 H 21 108/74 94 04/10/19 18:16 121 H 17 122/88 94 04/10/19 18:10 111 H 04/10/19 18:07 117 H 124/95 04/10/19 18:02 116 H 100/72 96 04/10/19 18:00 117 H 129/113 H 90 04/10/19 17:50 116 H 04/10/19 17:46 121 H 147/140 H 73 L 04/10/19 17:43 118 H 132/98 96 04/10/19 17:41 114 H 151/132 H 90 04/10/19 17:40 113 H 89 L 04/10/19 17:36 120 H 156/116 H 89 L 04/10/19 17:31 114 H 151/115 H 94 04/10/19 17:30 117 H 93 04/10/19 17:26 110 H 153/106 H 95 04/10/19 17:21 105 H 149/110 H 96 04/10/19 17:20 101 H 98 04/10/19 17:16 96 H 143/101 H 100 04/10/19 17:14 98 H 138/104 H 100 04/10/19 17:11 97 H 164/100 H 100 04/10/19 17:10 107 H 100 04/10/19 17:06 99 H 140/98 100 04/10/19 17:01 96 H 140/99 100 04/10/19 17:00 98 H 100 04/10/19 16:56 99 H 145/103 H 100 04/10/19 16:51 108 H 137/106 H 100 04/10/19 16:50 99 H 100 04/10/19 16:46 100 H 100 04/10/19 16:43 84 129/87 100 04/10/19 16:41 83 125/92 100 04/10/19 16:40 78 100 04/10/19 16:37 81 99 04/10/19 16:36 87 118/79 95 04/10/19 16:29 83 93 04/10/19 16:16 93 04/10/19 16:11 36.6 C 83 12 111/91 93 Laboratory Results Lab Results 04/10/19 04/10/19 04/10/19 Range/Units 16:40 16:40 16:40 WBC 8.45 (4.8-10.8) K/uL RBC 5.39 (4.7-6.1) M/uL Hgb 16.2 (14.0-18.0) g/dL Hct 45.7 (42-52) % MCV 84.8 (80-100) fL MCH 30.1 (25-34) pg MCHC 35.4 (32-36) g/dL RDW Std Deviation 40.9 (36.4-46.3) fL RDW Coeff of Ingris 13.3 (11.5-14.5) % Plt Count 276 (130-400) K/uL MPV 9.0 (7.4-10.4) fL Immature Gran % (Auto) 0.1 % Neut % (Auto) 72.0 % Lymph % (Auto) 16.9 % [place] % (Auto) 7.5 % Eos % (Auto) 3.0 % Baso % (Auto) 0.5 % Immature Gran # (Auto) 0.01 (0.00-0.02) K/uL Neut # (Auto) 6.09 (1.4-6.5) K/uL Lymph # (Auto) 1.43 (1.2-3.4) K/uL [place] # (Auto) 0.63 H (0.11-0.59) K/uL Eos # (Auto) 0.25 (0-0.5) K/uL Baso # (Auto) 0.04 (0-0.2) K/uL PT 10.0 (9.0-12.0) Seconds INR 1.0 (0.9-1.1) ABG pH (7.35-7.45) ABG pCO2 (35-46) mmHg ABG pO2 (80-95) mm/Hg ABG HCO3 (19-24) mmol/L ABG O2 Saturation (90-95) % ABG Base Excess (-9-1.8) mEq/L Feng Test (Pos) Barometric Pressure mm/Hg Oxygen Given Sodium 140 (136-145) mmol/L Potassium 4.3 (3.5-5.1) mmol/L Chloride 107 (98-107) mmol/L Carbon Dioxide 25 (21-32) mmol/L Anion Gap 8.0 (3-11) BUN 9 (7-18) mg/dl Creatinine 0.96 (0.6-1.4) mg/dl Est Cr Clr Drug Dosing Not Reportable Est GFR ( Amer) 111.0 Est GFR (Non-Af Amer) 95.7 BUN/Creatinine Ratio 9.6 L (10-20) Glucose 104 H (70-99) mg/dl POC Glucose (70-99) Osmolality (280-300) mOsm/kg Calcium 9.7 (8.5-10.1) mg/dl Magnesium 2.4 (1.8-2.4) mg/dl Total Bilirubin 0.4 (0.2-1) mg/dl AST 11 L (15-37) U/L ALT 19 (12-78) U/L Alkaline Phosphatase 99 (45-117) U/L Total Creatine Kinase 52 (39-308) U/L Troponin I < 0.015 (0-0.045) ng/ml Total Protein 7.9 (6.4-8.2) gm/dl Albumin 3.9 (3.4-5.0) gm/dl Globulin 4.0 (2.5-4.0) gm/dl Albumin/Globulin Ratio 1.0 (0.9-2) Lipase 3141 H (73-393) U/L Urine Color Urine Appearance (Clear) Urine pH (4.5-7.5) Ur Specific [place] (1.000-1.030) Urine Protein (Negative) Urine Glucose (UA) (Negative) Urine Ketones (Negative) Urine Blood (Negative) Urine Nitrite (Negative) Urine Bilirubin (Negative) Urine Urobilinogen (Negative) Ur Leukocyte Esterase (Negative) Salicylates (2.8-20) mg/dl Urine Opiates Screen (Neg) Ur Methadone, Qual (Neg) Acetaminophen (10-30) ug/ml Urine Barbiturates (Neg) Ur Phencyclidine (PCP) (Neg) U Amphetamin/Meth Scrn (Neg) MDMA (Ecstasy) Screen (Neg) U MDMA (Ecstasy), Quant U OH-Alprazolam Confrm U Benzodiazepines Scrn (Neg) 7-Amino Clonazepam Ur Nordiazepam Confirm U OH-ethylflurazepam U Lorazepam Cnf GC/MS U Oxazepam Confm GC/MS Ur Temazepam Confirm U OH-Triazolam Confirm U OH-Midazolam Confirm U Cocaine Confirm GC/MS Ur Cocaine Metabolite (Neg) U Marijuana (THC) Screen (Neg) U Marijuana THC Carboxy Ethyl Alcohol mg/dL (0-3) mg/dl 04/10/19 04/10/19 04/10/19 Range/Units 16:40 16:40 16:50 WBC (4.8-10.8) K/uL RBC (4.7-6.1) M/uL Hgb (14.0-18.0) g/dL Hct (42-52) % MCV (80-100) fL MCH (25-34) pg MCHC (32-36) g/dL RDW Std Deviation (36.4-46.3) fL RDW Coeff of Ingris (11.5-14.5) % Plt Count (130-400) K/uL MPV (7.4-10.4) fL Immature Gran % (Auto) % Neut % (Auto) % Lymph % (Auto) % [place] % (Auto) % Eos % (Auto) % Baso % (Auto) % Immature Gran # (Auto) (0.00-0.02) K/uL Neut # (Auto) (1.4-6.5) K/uL Lymph # (Auto) (1.2-3.4) K/uL [place] # (Auto) (0.11-0.59) K/uL Eos # (Auto) (0-0.5) K/uL Baso # (Auto) (0-0.2) K/uL PT (9.0-12.0) Seconds INR (0.9-1.1) ABG pH (7.35-7.45) ABG pCO2 (35-46) mmHg ABG pO2 (80-95) mm/Hg ABG HCO3 (19-24) mmol/L ABG O2 Saturation (90-95) % ABG Base Excess (-9-1.8) mEq/L Feng Test (Pos) Barometric Pressure mm/Hg Oxygen Given Sodium (136-145) mmol/L Potassium (3.5-5.1) mmol/L Chloride (98-107) mmol/L Carbon Dioxide (21-32) mmol/L Anion Gap (3-11) BUN (7-18) mg/dl Creatinine (0.6-1.4) mg/dl Est Cr Clr Drug Dosing Est GFR ( Amer) Est GFR (Non-Af Amer) BUN/Creatinine Ratio (10-20) Glucose (70-99) mg/dl POC Glucose (70-99) Osmolality 293 (280-300) mOsm/kg Calcium (8.5-10.1) mg/dl Magnesium (1.8-2.4) mg/dl Total Bilirubin (0.2-1) mg/dl AST (15-37) U/L ALT (12-78) U/L Alkaline Phosphatase (45-117) U/L Total Creatine Kinase (39-308) U/L Troponin I (0-0.045) ng/ml Total Protein (6.4-8.2) gm/dl Albumin (3.4-5.0) gm/dl Globulin (2.5-4.0) gm/dl Albumin/Globulin Ratio (0.9-2) Lipase (73-393) U/L Urine Color Urine Appearance (Clear) Urine pH (4.5-7.5) Ur Specific [place] (1.000-1.030) Urine Protein (Negative) Urine Glucose (UA) (Negative) Urine Ketones (Negative) Urine Blood (Negative) Urine Nitrite (Negative) Urine Bilirubin (Negative) Urine Urobilinogen (Negative) Ur Leukocyte Esterase (Negative) Salicylates < 1.7 L (2.8-20) mg/dl Urine Opiates Screen Neg (Neg) Ur Methadone, Qual Neg (Neg) Acetaminophen < 2 L (10-30) ug/ml Urine Barbiturates Neg (Neg) Ur Phencyclidine (PCP) Neg (Neg) U Amphetamin/Meth Scrn Neg (Neg) MDMA (Ecstasy) Screen Pos H (Neg) U MDMA (Ecstasy), Quant U OH-Alprazolam Confrm U Benzodiazepines Scrn Pos H (Neg) 7-Amino Clonazepam Ur Nordiazepam Confirm U OH-ethylflurazepam U Lorazepam Cnf GC/MS U Oxazepam Confm GC/MS Ur Temazepam Confirm U OH-Triazolam Confirm U OH-Midazolam Confirm U Cocaine Confirm GC/MS Ur Cocaine Metabolite Pos H (Neg) U Marijuana (THC) Screen Pos H (Neg) U Marijuana THC Carboxy Ethyl Alcohol mg/dL (0-3) mg/dl 04/10/19 04/10/19 04/10/19 Range/Units 16:50 16:50 16:50 WBC (4.8-10.8) K/uL RBC (4.7-6.1) M/uL Hgb (14.0-18.0) g/dL Hct (42-52) % MCV (80-100) fL MCH (25-34) pg MCHC (32-36) g/dL RDW Std Deviation (36.4-46.3) fL RDW Coeff of Ingris (11.5-14.5) % Plt Count (130-400) K/uL MPV (7.4-10.4) fL Immature Gran % (Auto) % Neut % (Auto) % Lymph % (Auto) % [place] % (Auto) % Eos % (Auto) % Baso % (Auto) % Immature Gran # (Auto) (0.00-0.02) K/uL Neut # (Auto) (1.4-6.5) K/uL Lymph # (Auto) (1.2-3.4) K/uL [place] # (Auto) (0.11-0.59) K/uL Eos # (Auto) (0-0.5) K/uL Baso # (Auto) (0-0.2) K/uL PT (9.0-12.0) Seconds INR (0.9-1.1) ABG pH (7.35-7.45) ABG pCO2 (35-46) mmHg ABG pO2 (80-95) mm/Hg ABG HCO3 (19-24) mmol/L ABG O2 Saturation (90-95) % ABG Base Excess (-9-1.8) mEq/L Feng Test (Pos) Barometric Pressure mm/Hg Oxygen Given Sodium (136-145) mmol/L Potassium (3.5-5.1) mmol/L Chloride (98-107) mmol/L Carbon Dioxide (21-32) mmol/L Anion Gap (3-11) BUN (7-18) mg/dl Creatinine (0.6-1.4) mg/dl Est Cr Clr Drug Dosing Est GFR ( Amer) Est GFR (Non-Af Amer) BUN/Creatinine Ratio (10-20) Glucose (70-99) mg/dl POC Glucose (70-99) Osmolality (280-300) mOsm/kg Calcium (8.5-10.1) mg/dl Magnesium (1.8-2.4) mg/dl Total Bilirubin (0.2-1) mg/dl AST (15-37) U/L ALT (12-78) U/L Alkaline Phosphatase (45-117) U/L Total Creatine Kinase (39-308) U/L Troponin I (0-0.045) ng/ml Total Protein (6.4-8.2) gm/dl Albumin (3.4-5.0) gm/dl Globulin (2.5-4.0) gm/dl Albumin/Globulin Ratio (0.9-2) Lipase (73-393) U/L Urine Color Dark Yellow Urine Appearance Clear (Clear) Urine pH 5.0 (4.5-7.5) Ur Specific [place] 1.024 (1.000-1.030) Urine Protein Negative (Negative) Urine Glucose (UA) Negative (Negative) Urine Ketones Trace H (Negative) Urine Blood Negative (Negative) Urine Nitrite Negative (Negative) Urine Bilirubin Negative (Negative) Urine Urobilinogen Negative (Negative) Ur Leukocyte Esterase Negative (Negative) Salicylates (2.8-20) mg/dl Urine Opiates Screen (Neg) Ur Methadone, Qual (Neg) Acetaminophen (10-30) ug/ml Urine Barbiturates (Neg) Ur Phencyclidine (PCP) (Neg) U Amphetamin/Meth Scrn (Neg) MDMA (Ecstasy) Screen (Neg) U MDMA (Ecstasy), Quant Cancelled U OH-Alprazolam Confrm Cancelled U Benzodiazepines Scrn (Neg) 7-Amino Clonazepam Cancelled Ur Nordiazepam Confirm Cancelled U OH-ethylflurazepam Cancelled U Lorazepam Cnf GC/MS Cancelled U Oxazepam Confm GC/MS Cancelled Ur Temazepam Confirm Cancelled U OH-Triazolam Confirm Cancelled U OH-Midazolam Confirm Cancelled U Cocaine Confirm GC/MS Cancelled Ur Cocaine Metabolite (Neg) U Marijuana (THC) Screen (Neg) U Marijuana THC Carboxy Cancelled Ethyl Alcohol mg/dL (0-3) mg/dl 04/10/19 04/10/19 04/10/19 Range/Units 17:59 17:59 20:02 WBC (4.8-10.8) K/uL RBC (4.7-6.1) M/uL Hgb (14.0-18.0) g/dL Hct (42-52) % MCV (80-100) fL MCH (25-34) pg MCHC (32-36) g/dL RDW Std Deviation (36.4-46.3) fL RDW Coeff of Ingris (11.5-14.5) % Plt Count (130-400) K/uL MPV (7.4-10.4) fL Immature Gran % (Auto) % Neut % (Auto) % Lymph % (Auto) % [place] % (Auto) % Eos % (Auto) % Baso % (Auto) % Immature Gran # (Auto) (0.00-0.02) K/uL Neut # (Auto) (1.4-6.5) K/uL Lymph # (Auto) (1.2-3.4) K/uL [place] # (Auto) (0.11-0.59) K/uL Eos # (Auto) (0-0.5) K/uL Baso # (Auto) (0-0.2) K/uL PT (9.0-12.0) Seconds INR (0.9-1.1) ABG pH 7.40 (7.35-7.45) ABG pCO2 38 (35-46) mmHg ABG pO2 82 (80-95) mm/Hg ABG HCO3 23 (19-24) mmol/L ABG O2 Saturation 96.3 H (90-95) % ABG Base Excess -1.4 (-9-1.8) mEq/L Feng Test Pos (Pos) Barometric Pressure 724.0 mm/Hg Oxygen Given 50% Sodium (136-145) mmol/L Potassium (3.5-5.1) mmol/L Chloride (98-107) mmol/L Carbon Dioxide (21-32) mmol/L Anion Gap (3-11) BUN (7-18) mg/dl Creatinine (0.6-1.4) mg/dl Est Cr Clr Drug Dosing Est GFR ( Amer) Est GFR (Non-Af Amer) BUN/Creatinine Ratio (10-20) Glucose (70-99) mg/dl POC Glucose 149 H (70-99) Osmolality (280-300) mOsm/kg Calcium (8.5-10.1) mg/dl Magnesium (1.8-2.4) mg/dl Total Bilirubin (0.2-1) mg/dl AST (15-37) U/L ALT (12-78) U/L Alkaline Phosphatase (45-117) U/L Total Creatine Kinase (39-308) U/L Troponin I (0-0.045) ng/ml Total Protein (6.4-8.2) gm/dl Albumin (3.4-5.0) gm/dl Globulin (2.5-4.0) gm/dl Albumin/Globulin Ratio (0.9-2) Lipase (73-393) U/L Urine Color Urine Appearance (Clear) Urine pH (4.5-7.5) Ur Specific [place] (1.000-1.030) Urine Protein (Negative) Urine Glucose (UA) (Negative) Urine Ketones (Negative) Urine Blood (Negative) Urine Nitrite (Negative) Urine Bilirubin (Negative) Urine Urobilinogen (Negative) Ur Leukocyte Esterase (Negative) Salicylates (2.8-20) mg/dl Urine Opiates Screen (Neg) Ur Methadone, Qual (Neg) Acetaminophen (10-30) ug/ml Urine Barbiturates (Neg) Ur Phencyclidine (PCP) (Neg) U Amphetamin/Meth Scrn (Neg) MDMA (Ecstasy) Screen (Neg) U MDMA (Ecstasy), Quant U OH-Alprazolam Confrm U Benzodiazepines Scrn (Neg) 7-Amino Clonazepam Ur Nordiazepam Confirm U OH-ethylflurazepam U Lorazepam Cnf GC/MS U Oxazepam Confm GC/MS Ur Temazepam Confirm U OH-Triazolam Confirm U OH-Midazolam Confirm U Cocaine Confirm GC/MS Ur Cocaine Metabolite (Neg) U Marijuana (THC) Screen (Neg) U Marijuana THC Carboxy Ethyl Alcohol mg/dL < 3.0 (0-3) mg/dl Diagnostic Findings XR chest 1V portable CLINICAL HISTORY: OD dyspnea. Tube position. COMPARISON STUDY: 01/24/2019 FINDINGS: Endotracheal tube placed 3 cm above the donte. Lungs are considered clear. No evidence for pneumothorax. IMPRESSION: Endotracheal tube placed 3 cm above the donte. The lungs are clear. The above report was generated using voice recognition software. It may contain grammatical, syntax or spelling errors. Electronically signed by: Jeff Becerril M.D. 04/10/2019 5:00 PM Dictated: 04/10/[id number] Transcribed: 04/10/191658 XR chest 1V portable CLINICAL HISTORY: tightness dyspnea COMPARISON STUDY: 04/10/2019 4:46 PM FINDINGS: Endotracheal tube has been pulled back. It is now approximately level of T2 and is 7.5 cm both donte. Minimal plaque atelectasis left base. Lungs otherwise appear clear. IMPRESSION: Endotracheal tube has been pulled back and is now at the thoracic inlet 7.5 cm above the donte. Minimal atelectatic atelectasis left base. The above report was generated using voice recognition software. It may contain grammatical, syntax or spelling errors. Electronically signed by: Jeff Becerril M.D. 04/10/2019 6:09 PM Dictated: 04/10/[id number] Transcribed: 04/10/191808 ECG Additional Comments: NSR at 81bpm, no acute ischemic changes Code Status & VTE Plan Code Status FULL Critical Care Time Critical Care Time: Yes Total Critical Care Time: 45 (1) Polysubstance overdose Encounter type: initial encounter Injury intent: intentional self-harm Qualified Code(s): T50.902A - Poisoning by unspecified drugs, medicaments and biological substances, intentional self-harm, initial encounter (2) Suicide gesture Encounter type: initial encounter Qualified Code(s): X83.8XXA - Intentional self-harm by other specified means, initial encounter (3) Asthma, moderate persistent Asthma complication type: uncomplicated Qualified Code(s): J45.40 - Moderate persistent asthma, uncomplicated (4) GERD (gastroesophageal reflux disease) Esophagitis presence: esophagitis presence not specified Qualified Code(s): K21.9 - Gastro-esophageal reflux disease without esophagitis (5) Pancreatitis Chronicity: acute Pancreatitis type: unspecified pancreatitis type Acute pancreatitis complication: unspecified Qualified Code(s): K85.90 - Acute pancreatitis without necrosis or infection, unspecified
[2019-04-10 20:58] LABS: Phosphorus 4.1 mg/dl (2.5-4.9)
[2019-04-10] MEDS: LACTATED RINGER'S 1,000 ML IV SCH (21:09)
--- NOTE | 2019-04-10 23:32 | Emergency Department Note ---
Entered by Nila Winn acting as a scribe for History of Present Illness General Chief complaint: Overdose (Intentional) Stated complaint: OVERDOSE Source: EMS History of Present Illness Onset (ago): hour(s) (just prior to arrival) Location: head (global ), upper extremity (global) and lower extremity (global ) Pain Consistency: + other (episode) Quality: + other (overdose ) Associated symptoms: + nausea/vomiting and + other (positive suicidal comments ) The patient is a 44 year old male who presents to the Emergency Room with complaints of an episode of an overdose that occurred just prior to arrival, per EMS. EMS states that they found the patient face down while hanging off the bed and "foaming at the mouth". Per EMS, the patient had an empty bottle of thirty 100mg Sertraline pills that was filled on 03/11, 30 days ago, an empty bottle of thirty 50mg Sertraline pills that was filled on 04/05, 5 days ago, an empty bottle of sixty 0.5mg Klonopin pills, an empty bottle of thirty 20mg Omeprazole pills that was filled on 04/04, 6 days ago, and an empty bottle of 8 Vitamin D pills that was filled on 02/14, 55 days ago. EMS also found partially empty bottles of Tylenol and Ibuprofen. EMS states that the patient vomited twice. Per EMS, the patient made comments about being suicidal to his over the past several days. Home Medications Home Medications Medication Instructions Recorded Confirmed Type acetaminophen [Tylenol Extra 1,000 mg PO Q8 PRN 09/10/18 04/10/19 History Strength] albuterol sulfate 2 puff INHALATION QID PRN 09/10/18 04/10/19 History aspirin [Aspir-Low] 81 mg PO DAILY 09/10/18 04/10/19 History ibuprofen [Advil] 600 mg PO Q8 PRN 09/10/18 04/10/19 History loratadine-pseudoephedrine 1 tab PO DAILY 09/10/18 04/10/19 History [Claritin-D 24 Hour] omeprazole 20 mg PO DAILY 09/10/18 04/10/19 History sertraline [Zoloft] 100 mg PO DAILY 09/10/18 04/10/19 History testosterone 1 g TOPICAL DAILY 09/10/18 04/10/[address] Nasal [place] 0 spray NOT APPLICABLE UD 04/10/19 04/10/19 History calcium polycarbophil [Fiber-Tabs] 1,250 mg PO DAILY 04/10/19 04/10/19 History cholecalciferol (vitamin D3) 50,000 unit PO WK 04/10/19 04/10/19 History clonazepam [Klonopin] 0.5 mg PO BID 04/10/19 04/10/19 History docusate sodium 100 mg PO DAILY PRN 04/10/19 04/10/19 History lactobacillus combination no.4 0 mmu cells PO DAILY 04/10/19 04/10/19 History [Probiotic] Allergies Allergy/AdvReac Type Severity Reaction Status Date / Time animal dander Allergy Mild ITCHING Unverified 04/10/19 17:33 EYES, SNEEZING, COLD WATER AdvReac Intermediate HIVES Uncoded 04/10/19 17:33 Past Med/Surg History Medical History Scoliosis (Chronic) Asthma, moderate persistent (Chronic) Compression fracture of spine (Chronic) Allergic rhinitis (Chronic) Tobacco use disorder (Chronic) GERD (gastroesophageal reflux disease) (Chronic) Cervical strain (Acute) Closed head injury (Acute) Concussion (Acute) Fall (Acute) Scalp laceration (Acute) Depression Prior SI, per no prior suicide attempts Surgical History History of repair of anterior cruciate ligament of left knee (Resolved) " L ACL 1997" Hx of total knee arthroplasty (Resolved) "L knee 11/2014" History of nasal septoplasty (Resolved) "[place] Coelho ([place] [facility] [place]" Family History Other Coronary heart disease Social History Preferred Language: Peruvian Communication Ability: Effective Brim Setter Required: No Beliefs That Will Affect Care: None marital status: Current Living Situation: Spouse current occupational status: employed Other Information That Helps Us Care for You: No Feels Safe at Home: Declines to Answer Safety Concerns: Feels Safe At This Time Smoking Status: Unknown if ever smoked Hx Alcohol Use: Yes (occasionally) Alcohol type: beer Hx Substance Use: Yes substance use type: marijuana Last Used Substance: Days (ago) Last Used Substance Other:: Tuesday night Review of Systems See HPI for pertinent positives & negatives. and A total of 10 systems reviewed and were otherwise negative Physical Exam Vital Signs Vital Signs - 24 hr 04/10/19 16:11 04/10/19 16:16 04/10/19 16:29 Temperature 36.6 C Temperature Source Rectal Rectal Temperature - Source 1 Sepsis Recent Fever Within 48 Hours No Sepsis New/Unexplained Change in Mental Status No Sepsis Action Taken by Nursing No Action Required End-Tidal CO2 Pulse Rate 83 83 Pulse Rate [Right Finger] Pulse Rate from SpO2 Sensor Respiratory Rate 12 Respiratory Effort / Characteristics Spontaneous Non-Labored Spontaneous Respiratory Depth Shallow Normal Blood Pressure 111/91 Blood Pressure [Right Arm] Blood Pressure Mean 97 Blood Pressure Mean [Right Arm] Blood Pressure Position Lying Blood Pressure Position [Right Arm] Pulse Oximetry 93 93 93 Oxygen Delivery Method Room Air Room Air Room Air Oxygen Flow Rate Fraction of Inspired Oxygen 04/10/19 16:36 04/10/19 16:37 04/10/19 16:40 Temperature Temperature Source Rectal Temperature - Source 1 36.1 C L Sepsis Recent Fever Within 48 Hours Sepsis New/Unexplained Change in Mental Status Sepsis Action Taken by Nursing End-Tidal CO2 Pulse Rate 87 81 78 Pulse Rate [Right Finger] Pulse Rate from SpO2 Sensor 86 80 80 Respiratory Rate Respiratory Effort / Characteristics Respiratory Depth Blood Pressure 118/79 Blood Pressure [Right Arm] Blood Pressure Mean 92 Blood Pressure Mean [Right Arm] Blood Pressure Position Blood Pressure Position [Right Arm] Pulse Oximetry 95 99 100 Oxygen Delivery Method Non-rebreather Non-rebreather Oxygen Flow Rate 15 Fraction of Inspired Oxygen 04/10/19 16:41 04/10/19 16:43 04/10/19 16:46 Temperature Temperature Source Rectal Temperature - Source 1 Sepsis Recent Fever Within 48 Hours Sepsis New/Unexplained Change in Mental Status Sepsis Action Taken by Nursing End-Tidal CO2 Pulse Rate 83 84 100 H Pulse Rate [Right Finger] Pulse Rate from SpO2 Sensor 83 85 91 H Respiratory Rate Respiratory Effort / Characteristics Respiratory Depth Blood Pressure 125/92 129/87 Blood Pressure [Right Arm] Blood Pressure Mean 103 101 Blood Pressure Mean [Right Arm] Blood Pressure Position Blood Pressure Position [Right Arm] Pulse Oximetry 100 100 100 Oxygen Delivery Method Non-rebreather Non-rebreather Mechanical Vent Oxygen Flow Rate 15 15 Fraction of Inspired Oxygen 04/10/19 16:50 04/10/19 16:51 04/10/19 16:56 Temperature Temperature Source Rectal Temperature - Source 1 Sepsis Recent Fever Within 48 Hours Sepsis New/Unexplained Change in Mental Status Sepsis Action Taken by Nursing End-Tidal CO2 30 36 41 Pulse Rate 99 H 108 H 99 H Pulse Rate [Right Finger] Pulse Rate from SpO2 Sensor 99 H 107 H 98 H Respiratory Rate Respiratory Effort / Characteristics Respiratory Depth Blood Pressure 137/106 H 145/103 H Blood Pressure [Right Arm] Blood Pressure Mean 116 117 Blood Pressure Mean [Right Arm] Blood Pressure Position Blood Pressure Position [Right Arm] Pulse Oximetry 100 100 100 Oxygen Delivery Method Mechanical Vent Mechanical Vent Mechanical Vent Oxygen Flow Rate Fraction of Inspired Oxygen 04/10/19 17:00 04/10/19 17:01 04/10/19 17:06 Temperature Temperature Source Rectal Temperature - Source 1 Sepsis Recent Fever Within 48 Hours Sepsis New/Unexplained Change in Mental Status Sepsis Action Taken by Nursing End-Tidal CO2 43 39 41 Pulse Rate 96 H 96 H 99 H Pulse Rate [Right Finger] Pulse Rate from SpO2 Sensor 99 H 96 H 97 H Respiratory Rate 12 Respiratory Effort / Characteristics Respiratory Depth Blood Pressure 140/99 140/98 Blood Pressure [Right Arm] Blood Pressure Mean 112 112 Blood Pressure Mean [Right Arm] Blood Pressure Position Blood Pressure Position [Right Arm] Pulse Oximetry 100 100 100 Oxygen Delivery Method Mechanical Vent Mechanical Vent Mechanical Vent Oxygen Flow Rate Fraction of Inspired Oxygen 50 04/10/19 17:10 04/10/19 17:11 04/10/19 17:14 Temperature Temperature Source Rectal Temperature - Source 1 Sepsis Recent Fever Within 48 Hours Sepsis New/Unexplained Change in Mental Status Sepsis Action Taken by Nursing End-Tidal CO2 10 38 39 Pulse Rate 107 H 97 H 98 H Pulse Rate [Right Finger] Pulse Rate from SpO2 Sensor 107 H 98 H 98 H Respiratory Rate Respiratory Effort / Characteristics Respiratory Depth Blood Pressure 164/100 H 138/104 H Blood Pressure [Right Arm] Blood Pressure Mean 121 115 Blood Pressure Mean [Right Arm] Blood Pressure Position Blood Pressure Position [Right Arm] Pulse Oximetry 100 100 100 Oxygen Delivery Method Mechanical Vent Mechanical Vent Mechanical Vent Oxygen Flow Rate Fraction of Inspired Oxygen 04/10/19 17:16 04/10/19 17:20 04/10/19 17:21 Temperature Temperature Source Rectal Temperature - Source 1 Sepsis Recent Fever Within 48 Hours Sepsis New/Unexplained Change in Mental Status Sepsis Action Taken by Nursing End-Tidal CO2 39 43 42 Pulse Rate 96 H 101 H 105 H Pulse Rate [Right Finger] Pulse Rate from SpO2 Sensor 96 H 102 H 106 H Respiratory Rate Respiratory Effort / Characteristics Respiratory Depth Blood Pressure 143/101 H 149/110 H Blood Pressure [Right Arm] Blood Pressure Mean 115 123 Blood Pressure Mean [Right Arm] Blood Pressure Position Blood Pressure Position [Right Arm] Pulse Oximetry 100 98 96 Oxygen Delivery Method Mechanical Vent Mechanical Vent Mechanical Vent Oxygen Flow Rate Fraction of Inspired Oxygen 04/10/19 17:26 04/10/19 17:30 04/10/19 17:31 Temperature Temperature Source Rectal Temperature - Source 1 Sepsis Recent Fever Within 48 Hours Sepsis New/Unexplained Change in Mental Status Sepsis Action Taken by Nursing End-Tidal CO2 33 35 29 Pulse Rate 110 H 117 H 114 H Pulse Rate [Right Finger] Pulse Rate from SpO2 Sensor 112 H 117 H 116 H Respiratory Rate Respiratory Effort / Characteristics Respiratory Depth Blood Pressure 153/106 H 151/115 H Blood Pressure [Right Arm] Blood Pressure Mean 121 127 Blood Pressure Mean [Right Arm] Blood Pressure Position Blood Pressure Position [Right Arm] Pulse Oximetry 95 93 94 Oxygen Delivery Method Mechanical Vent Mechanical Vent Mechanical Vent Oxygen Flow Rate Fraction of Inspired Oxygen 04/10/19 17:36 04/10/19 17:40 04/10/19 17:41 Temperature Temperature Source Rectal Temperature - Source 1 Sepsis Recent Fever Within 48 Hours Sepsis New/Unexplained Change in Mental Status Sepsis Action Taken by Nursing End-Tidal CO2 33 36 42 Pulse Rate 120 H 113 H 114 H Pulse Rate [Right Finger] Pulse Rate from SpO2 Sensor 113 H 123 H 130 H Respiratory Rate Respiratory Effort / Characteristics Respiratory Depth Blood Pressure 156/116 H 151/132 H Blood Pressure [Right Arm] Blood Pressure Mean 129 138 Blood Pressure Mean [Right Arm] Blood Pressure Position Blood Pressure Position [Right Arm] Pulse Oximetry 89 L 89 L 90 Oxygen Delivery Method Mechanical Vent Mechanical Vent Mechanical Vent Oxygen Flow Rate Fraction of Inspired Oxygen 04/10/19 17:43 04/10/19 17:46 04/10/19 17:50 Temperature Temperature Source Rectal Temperature - Source 1 Sepsis Recent Fever Within 48 Hours Sepsis New/Unexplained Change in Mental Status Sepsis Action Taken by Nursing End-Tidal CO2 32 36 Pulse Rate 118 H 121 H 116 H Pulse Rate [Right Finger] Pulse Rate from SpO2 Sensor 119 H 150 H Respiratory Rate 20 Respiratory Effort / Characteristics Respiratory Depth Blood Pressure 132/98 147/140 H Blood Pressure [Right Arm] Blood Pressure Mean 109 142 Blood Pressure Mean [Right Arm] Blood Pressure Position Blood Pressure Position [Right Arm] Pulse Oximetry 96 73 L Oxygen Delivery Method Mechanical Vent Mechanical Vent Oxygen Flow Rate Fraction of Inspired Oxygen 04/10/19 18:00 04/10/19 18:02 04/10/19 18:07 Temperature Temperature Source Rectal Temperature - Source 1 Sepsis Recent Fever Within 48 Hours Sepsis New/Unexplained Change in Mental Status Sepsis Action Taken by Nursing End-Tidal CO2 25 24 24 Pulse Rate 117 H 116 H 117 H Pulse Rate [Right Finger] Pulse Rate from SpO2 Sensor 153 H 120 H Respiratory Rate Respiratory Effort / Characteristics Respiratory Depth Blood Pressure 129/113 H 100/72 124/95 Blood Pressure [Right Arm] Blood Pressure Mean 118 81 104 Blood Pressure Mean [Right Arm] Blood Pressure Position Blood Pressure Position [Right Arm] Pulse Oximetry 90 96 Oxygen Delivery Method Mechanical Vent Mechanical Vent Oxygen Flow Rate Fraction of Inspired Oxygen 04/10/19 18:10 04/10/19 18:16 Temperature Temperature Source Rectal Temperature - Source 1 Sepsis Recent Fever Within 48 Hours Sepsis New/Unexplained Change in Mental Status Sepsis Action Taken by Nursing End-Tidal CO2 22 Pulse Rate 111 H Pulse Rate [Right Finger] 109 H 121 H Pulse Rate from SpO2 Sensor Respiratory Rate 22 17 Respiratory Effort / Characteristics Spontaneous Non-Labored Respiratory Depth Normal Blood Pressure Blood Pressure [Right Arm] 122/88 Blood Pressure Mean Blood Pressure Mean [Right Arm] 99 Blood Pressure Position Blood Pressure Position [Right Arm] Sitting Pulse Oximetry 92 94 Oxygen Delivery Method Room Air Nasal Cannula Oxygen Flow Rate 3 Fraction of Inspired Oxygen GENERAL: Patient is obtunded. Does not follow commands. No spontaneous speech or movements. EYES: Eyes are closed. The eyes were forced open to reveal roving gaze, bilateral conjunctival injection, and dilated pupils that are reactive to light. EARS, NOSE, MOUTH AND THROAT: The nose is without any evidence of any deformity. Mucous membranes are moist.Tongue is midline. ENTRY LEVEL ADMINISTRATIVE ASSISTANT airway in right naris NECK: The neck is nontender and supple. RESPIRATORY: There is no evidence of wheezing rhonchi or rales to auscultation. Lung sounds diminished throughout. Poor air movement and shallow respirations. CARDIOVASCULAR: Regular rate and rhythm noted. There no murmurs rubs or gallops normal S1 normal S2 GASTROINTESTINAL: The abdomen is soft. Bowel sounds are present in all quadrants. Abdomen is nontender. MUSCULOSKELETAL/EXTREMITIES: There is no evidence of gross deformity. Full range of motion is noted in the hips and shoulders. SKIN: There is no obvious evidence of any rash. There are no petechiae, pallor or cyanosis noted. NEUROLOGIC: GCS 4-5. Patellar reflexes are 1+ bilaterally. PSYCH: Reported history of prior suicidal ideations, per . Procedures Free Text Procedures Endotracheal Intubation Indication respiratory failure. The patient was on 100% oxygen via NRB prior to the procedure. Suction, airway equipment, RSI drugs, respiratory equipment, and appropriate personnel were prepared prior to the initiation of the procedure. A time out was taken. Induction was performed with Rocuronium. After observing the clinical benefit of the medications, the airway was easily visualized utilizing a GlideScope. A 7.5 size ETT tube was placed atraumatically to 22 cm using standard technique. The cuff inflated without signs of malfunction. There were bilateral breath sounds, positive colormetric change, no gastric sounds, a good capnography waveform, and post procedure pulse oximetry was 100%. Post intubation sedation and paralysis was administered using Propofol. There were no complications. It was done by the optician apprentice with me assisting. Course 1627: The patient was evaluated in room A1, and a complete history and physical examination were performed. 1649: I talked to the patient's family and updated them. The patient's states that the patient emailed her at 1330, 3 hours prior to arrival, stating "can you come home please?". When the patient's came home, she states that the patient was asleep on the couch. The patient's states that she then heard a thud at around and found the patient on the floor. The patient's states that at about 1500, she tried to arouse him and states that the patient was slurring his words. The patient's states that she called EMS when the patient's symptoms became worse. 1705: I discussed the case with Dr. [id number]. 1743: [facility] for further evaluation. 1820: The patient was extubated. Consultations Consultation #1: I discussed the case with Dr. [id number]. Time: 17:05 Consultation #2: [facility] for further evaluation. Time: 17:43 Administered Medications Lactated Ringer's (Lr) 1,000 mls @ 150 mls/hr IV .Q6H40M [facility] Stop: 04/11/19 16:14 Last Admin: 04/10/19 21:09 Dose: 150 mls/hr Documented by: [id number] Discontinued Medications Albuterol (Duoneb) 3 ml NEB NOW STA Stop: 04/10/19 18:04 Last Admin: 04/10/19 18:25 Dose: 3 ml Documented by: [id number] Fentanyl Citrate (Fentanyl Citrate) Confirm Administered Dose 100 mcg .ROUTE .STK-MED ONE Stop: 04/10/19 17:53 Last Admin: 04/10/19 19:19 Dose: Not Given Documented by: [id number] Fentanyl Citrate (Fentanyl Citrate) Confirm Administered Dose 100 mcg .ROUTE .STK-MED ONE Stop: 04/10/19 17:53 Last Admin: 04/10/19 17:58 Dose: Not Given Documented by: [id number] Fentanyl Citrate (Fentanyl Citrate) 150 mcg IV NOW ONE Stop: 04/10/19 17:53 Last Admin: 04/10/19 17:57 Dose: 150 mcg Documented by: [id number] Sodium Chloride (Nss 1000ml) 1,000 mls @ 999 mls/hr IV .Q1H1M [facility] Stop: 04/10/19 17:30 Last Infusion: 04/10/19 17:56 Dose: 0 mls/hr Documented by: [id number] Admin: 04/10/19 16:30 Dose: 999 mls/hr Documented by: [id number] Propofol (Diprivan) 1,000 mg in 100 mls @ 2.1 mls/hr IV .Q24H [facility]; Protocol Stop: 04/13/19 17:29 Last Titration: 04/10/19 19:35 Dose: 0 mcg/kg/min, 0 mls/hr Documented by: [id number] Admin: 04/10/19 19:18 Dose: 5 mcg/kg/min, 2.1 mls/hr Documented by: [id number] Cosigned by: [id number] Midazolam HCl (Versed) 2 mg IV NOW STA Stop: 04/10/19 17:43 Last Admin: 04/10/19 17:47 Dose: 2 mg Documented by: [id number] Midazolam HCl (Versed) Confirm Administered Dose 2 mg .ROUTE .STK-MED ONE Stop: 04/10/19 17:44 Last Admin: 04/10/19 17:47 Dose: Not Given Documented by: [id number] Midazolam HCl (Versed) 4 mg IV NOW STA Stop: 04/10/19 17:53 Last Admin: 04/10/19 17:58 Dose: 4 mg Documented by: [id number] Miscellaneous () Confirm Administered Dose 1 ea .ROUTE .STK-MED ONE Stop: 04/10/19 16:36 Last Admin: 04/10/19 16:59 Dose: 1 ea Documented by: [id number] Propofol (Diprivan) Confirm Administered Dose 1,000 mg IV .STK-MED ONE Stop: 04/10/19 17:22 Last Admin: 04/10/19 19:18 Dose: Not Given Documented by: [id number] Medical Decision Making Differential Diagnosis Differential diagnosis: Etiologies such as toxicologic, infection, hypoglycemia, electrolyte abnormalities, cardiac sources, intracerebral event, neurologic, as well as others were entertained. Medical Records Attestation: I reviewed the patient's medical records. Home Medications Current Medication List: was personally reviewed by me Laboratory Data Attestation: I reviewed the patient's lab results. Result diagrams: 04/10/19 16:40 04/10/19 16:40 Lab Results 04/10/19 04/10/19 04/10/19 Range/Units 16:40 16:40 16:40 WBC 8.45 (4.8-10.8) K/uL RBC 5.39 (4.7-6.1) M/uL Hgb 16.2 (14.0-18.0) g/dL Hct 45.7 (42-52) % MCV 84.8 (80-100) fL MCH 30.1 (25-34) pg MCHC 35.4 (32-36) g/dL RDW Std Deviation 40.9 (36.4-46.3) fL RDW Coeff of Ingris 13.3 (11.5-14.5) % Plt Count 276 (130-400) K/uL MPV 9.0 (7.4-10.4) fL Immature Gran % (Auto) 0.1 % Neut % (Auto) 72.0 % Lymph % (Auto) 16.9 % [place] % (Auto) 7.5 % Eos % (Auto) 3.0 % Baso % (Auto) 0.5 % Immature Gran # (Auto) 0.01 (0.00-0.02) K/uL Neut # (Auto) 6.09 (1.4-6.5) K/uL Lymph # (Auto) 1.43 (1.2-3.4) K/uL [place] # (Auto) 0.63 H (0.11-0.59) K/uL Eos # (Auto) 0.25 (0-0.5) K/uL Baso # (Auto) 0.04 (0-0.2) K/uL PT 10.0 (9.0-12.0) Seconds INR 1.0 (0.9-1.1) ABG pH (7.35-7.45) ABG pCO2 (35-46) mmHg ABG pO2 (80-95) mm/Hg ABG HCO3 (19-24) mmol/L ABG O2 Saturation (90-95) % ABG Base Excess (-9-1.8) mEq/L Feng Test (Pos) Barometric Pressure mm/Hg Oxygen Given Sodium 140 (136-145) mmol/L Potassium 4.3 (3.5-5.1) mmol/L Chloride 107 (98-107) mmol/L Carbon Dioxide 25 (21-32) mmol/L Anion Gap 8.0 (3-11) BUN 9 (7-18) mg/dl Creatinine 0.96 (0.6-1.4) mg/dl Est Cr Clr Drug Dosing Not Reportable Est GFR ( Amer) 111.0 Est GFR (Non-Af Amer) 95.7 BUN/Creatinine Ratio 9.6 L (10-20) Glucose 104 H (70-99) mg/dl Osmolality (280-300) mOsm/kg Calcium 9.7 (8.5-10.1) mg/dl Magnesium 2.4 (1.8-2.4) mg/dl Total Bilirubin 0.4 (0.2-1) mg/dl AST 11 L (15-37) U/L ALT 19 (12-78) U/L Alkaline Phosphatase 99 (45-117) U/L Total Creatine Kinase 52 (39-308) U/L Troponin I < 0.015 (0-0.045) ng/ml Total Protein 7.9 (6.4-8.2) gm/dl Albumin 3.9 (3.4-5.0) gm/dl Globulin 4.0 (2.5-4.0) gm/dl Albumin/Globulin Ratio 1.0 (0.9-2) Lipase 3141 H (73-393) U/L Urine Color Urine Appearance (Clear) Urine pH (4.5-7.5) Ur Specific [place] (1.000-1.030) Urine Protein (Negative) Urine Glucose (UA) (Negative) Urine Ketones (Negative) Urine Blood (Negative) Urine Nitrite (Negative) Urine Bilirubin (Negative) Urine Urobilinogen (Negative) Ur Leukocyte Esterase (Negative) Salicylates (2.8-20) mg/dl Urine Opiates Screen (Neg) Ur Methadone, Qual (Neg) Acetaminophen (10-30) ug/ml Urine Barbiturates (Neg) Ur Phencyclidine (PCP) (Neg) U Amphetamin/Meth Scrn (Neg) MDMA (Ecstasy) Screen (Neg) U Benzodiazepines Scrn (Neg) Ur Cocaine Metabolite (Neg) U Marijuana (THC) Screen (Neg) Ethyl Alcohol mg/dL (0-3) mg/dl 04/10/19 04/10/19 04/10/19 Range/Units 16:40 16:40 16:50 WBC (4.8-10.8) K/uL RBC (4.7-6.1) M/uL Hgb (14.0-18.0) g/dL Hct (42-52) % MCV (80-100) fL MCH (25-34) pg MCHC (32-36) g/dL RDW Std Deviation (36.4-46.3) fL RDW Coeff of Ingris (11.5-14.5) % Plt Count (130-400) K/uL MPV (7.4-10.4) fL Immature Gran % (Auto) % Neut % (Auto) % Lymph % (Auto) % [place] % (Auto) % Eos % (Auto) % Baso % (Auto) % Immature Gran # (Auto) (0.00-0.02) K/uL Neut # (Auto) (1.4-6.5) K/uL Lymph # (Auto) (1.2-3.4) K/uL [place] # (Auto) (0.11-0.59) K/uL Eos # (Auto) (0-0.5) K/uL Baso # (Auto) (0-0.2) K/uL PT (9.0-12.0) Seconds INR (0.9-1.1) ABG pH (7.35-7.45) ABG pCO2 (35-46) mmHg ABG pO2 (80-95) mm/Hg ABG HCO3 (19-24) mmol/L ABG O2 Saturation (90-95) % ABG Base Excess (-9-1.8) mEq/L Feng Test (Pos) Barometric Pressure mm/Hg Oxygen Given Sodium (136-145) mmol/L Potassium (3.5-5.1) mmol/L Chloride (98-107) mmol/L Carbon Dioxide (21-32) mmol/L Anion Gap (3-11) BUN (7-18) mg/dl Creatinine (0.6-1.4) mg/dl Est Cr Clr Drug Dosing Est GFR ( Amer) Est GFR (Non-Af Amer) BUN/Creatinine Ratio (10-20) Glucose (70-99) mg/dl Osmolality 293 (280-300) mOsm/kg Calcium (8.5-10.1) mg/dl Magnesium (1.8-2.4) mg/dl Total Bilirubin (0.2-1) mg/dl AST (15-37) U/L ALT (12-78) U/L Alkaline Phosphatase (45-117) U/L Total Creatine Kinase (39-308) U/L Troponin I (0-0.045) ng/ml Total Protein (6.4-8.2) gm/dl Albumin (3.4-5.0) gm/dl Globulin (2.5-4.0) gm/dl Albumin/Globulin Ratio (0.9-2) Lipase (73-393) U/L Urine Color Urine Appearance (Clear) Urine pH (4.5-7.5) Ur Specific [place] (1.000-1.030) Urine Protein (Negative) Urine Glucose (UA) (Negative) Urine Ketones (Negative) Urine Blood (Negative) Urine Nitrite (Negative) Urine Bilirubin (Negative) Urine Urobilinogen (Negative) Ur Leukocyte Esterase (Negative) Salicylates < 1.7 L (2.8-20) mg/dl Urine Opiates Screen Neg (Neg) Ur Methadone, Qual Neg (Neg) Acetaminophen < 2 L (10-30) ug/ml Urine Barbiturates Neg (Neg) Ur Phencyclidine (PCP) Neg (Neg) U Amphetamin/Meth Scrn Neg (Neg) MDMA (Ecstasy) Screen Pos H (Neg) U Benzodiazepines Scrn Pos H (Neg) Ur Cocaine Metabolite Pos H (Neg) U Marijuana (THC) Screen Pos H (Neg) Ethyl Alcohol mg/dL (0-3) mg/dl 04/10/19 04/10/19 04/10/19 Range/Units 16:50 17:59 17:59 WBC (4.8-10.8) K/uL RBC (4.7-6.1) M/uL Hgb (14.0-18.0) g/dL Hct (42-52) % MCV (80-100) fL MCH (25-34) pg MCHC (32-36) g/dL RDW Std Deviation (36.4-46.3) fL RDW Coeff of Ingris (11.5-14.5) % Plt Count (130-400) K/uL MPV (7.4-10.4) fL Immature Gran % (Auto) % Neut % (Auto) % Lymph % (Auto) % [place] % (Auto) % Eos % (Auto) % Baso % (Auto) % Immature Gran # (Auto) (0.00-0.02) K/uL Neut # (Auto) (1.4-6.5) K/uL Lymph # (Auto) (1.2-3.4) K/uL [place] # (Auto) (0.11-0.59) K/uL Eos # (Auto) (0-0.5) K/uL Baso # (Auto) (0-0.2) K/uL PT (9.0-12.0) Seconds INR (0.9-1.1) ABG pH 7.40 (7.35-7.45) ABG pCO2 38 (35-46) mmHg ABG pO2 82 (80-95) mm/Hg ABG HCO3 23 (19-24) mmol/L ABG O2 Saturation 96.3 H (90-95) % ABG Base Excess -1.4 (-9-1.8) mEq/L Feng Test Pos (Pos) Barometric Pressure 724.0 mm/Hg Oxygen Given 50% Sodium (136-145) mmol/L Potassium (3.5-5.1) mmol/L Chloride (98-107) mmol/L Carbon Dioxide (21-32) mmol/L Anion Gap (3-11) BUN (7-18) mg/dl Creatinine (0.6-1.4) mg/dl Est Cr Clr Drug Dosing Est GFR ( Amer) Est GFR (Non-Af Amer) BUN/Creatinine Ratio (10-20) Glucose (70-99) mg/dl Osmolality (280-300) mOsm/kg Calcium (8.5-10.1) mg/dl Magnesium (1.8-2.4) mg/dl Total Bilirubin (0.2-1) mg/dl AST (15-37) U/L ALT (12-78) U/L Alkaline Phosphatase (45-117) U/L Total Creatine Kinase (39-308) U/L Troponin I (0-0.045) ng/ml Total Protein (6.4-8.2) gm/dl Albumin (3.4-5.0) gm/dl Globulin (2.5-4.0) gm/dl Albumin/Globulin Ratio (0.9-2) Lipase (73-393) U/L Urine Color Dark Yellow Urine Appearance Clear (Clear) Urine pH 5.0 (4.5-7.5) Ur Specific [place] 1.024 (1.000-1.030) Urine Protein Negative (Negative) Urine Glucose (UA) Negative (Negative) Urine Ketones Trace H (Negative) Urine Blood Negative (Negative) Urine Nitrite Negative (Negative) Urine Bilirubin Negative (Negative) Urine Urobilinogen Negative (Negative) Ur Leukocyte Esterase Negative (Negative) Salicylates (2.8-20) mg/dl Urine Opiates Screen (Neg) Ur Methadone, Qual (Neg) Acetaminophen (10-30) ug/ml Urine Barbiturates (Neg) Ur Phencyclidine (PCP) (Neg) U Amphetamin/Meth Scrn (Neg) MDMA (Ecstasy) Screen (Neg) U Benzodiazepines Scrn (Neg) Ur Cocaine Metabolite (Neg) U Marijuana (THC) Screen (Neg) Ethyl Alcohol mg/dL < 3.0 (0-3) mg/dl Imaging Data Radiologist's Impression: Radiology results as stated below per my review and the radiologist's interpretation: XR chest 1V portable CLINICAL HISTORY: OD dyspnea. Tube position. COMPARISON STUDY: 01/24/2019 FINDINGS: Endotracheal tube placed 3 cm above the donte. Lungs are considered clear. No evidence for pneumothorax. IMPRESSION: Endotracheal tube placed 3 cm above the donte. The lungs are clear. The above report was generated using voice recognition software. It may contain grammatical, syntax or spelling errors. Electronically signed by: Jeff Becerril M.D. 04/10/2019 5:00 PM XR chest 1V portable CLINICAL HISTORY: tightness dyspnea COMPARISON STUDY: 04/10/2019 4:46 PM FINDINGS: Endotracheal tube has been pulled back. It is now approximately level of T2 and is 7.5 cm both donte. Minimal plaque atelectasis left base. Lungs otherwise appear clear. IMPRESSION: Endotracheal tube has been pulled back and is now at the thoracic inlet 7.5 cm above the donte. Minimal atelectatic atelectasis left base. The above report was generated using voice recognition software. It may contain grammatical, syntax or spelling errors. Electronically signed by: Jeff Becerril M.D. 04/10/2019 6:09 PM ECG Data Attestation: I personally reviewed and interpreted this ECG as follows: Indication: toxicologic Rate (beats per minute): 81 Rhythm: normal sinus Findings: + other (no acute ST segment abnormalities ); no ectopy Comparison ECG Date: from (09/10/2018) Change: no significant change Blood Pressure Blood Pressure Findings: Normal blood pressure MDM Narrative The patient is a 44-year-old male who presented to the emergency department for an evaluation after a suicidal gesture. The patient was obtunded and history was obtained from the prehospital personnel. The patient's family members also provide the history. The patient was very obtunded and he had a very low GCS. The decision was made to intubate the patient immediately as he did already have multiple episodes of emesis and had a nasopharyngeal airway in place. The patient was intubated without difficulty. The patient started to have recovery and had started to self extubate. He was awake and alert. We started to wean off the propofol. Ultimately the patient was extubated by myself in the e mergency department. He was reevaluated multiple times. I discussed the patient's laboratory and radiographic studies with him as well as his family members. I also discussed his case with the on-call [facility] hospitalist group. They have agreed to evaluate the patient in the emergency department for further management and further medical clearance. The patient was also evaluated by the mental health correctional counselor/case manager. Impression & Plan Respiratory failure, Polysubstance overdose, Suicidal ideation, Suicide gesture, Pancreatitis Critical Care Time I have personally spent 60 minutes of critical care time in the direct management of this patient. This includes bedside care, interpretation of diagnostic studies, and testing, discussion with consultants, patient, and family members, and other required patient management activities. This 60 minutes is in excess of all separately billable procedures. Critical Care Time: Yes Total Critical Care Time: 60 Discharge Plan Visit Data *Final* Discharge Date/Time: 04/10/19 19:16 Chief Complaint: Overdose (Intentional) Stated Complaint: OVERDOSE ED Provider: Festus Randolph Discharge Problem: Respiratory failure, Polysubstance overdose, Suicidal ideation, Suicide gesture, Pancreatitis Patient Disposition: Admitted As Inpatient Discharge Instructions Interventions: ED Discharge Assessment Last Done: 04/10/19 19:16 Discharge Problem: Respiratory failure Qualifiers: Chronicity: acute Respiratory failure complication: unspecified whether with hypoxia or hypercapnia Qualified Code(s): J96.00 - Acute respiratory failure, unspecified whether with hypoxia or hypercapnia Polysubstance overdose Qualifiers: Encounter type: initial encounter Injury intent: intentional self-harm Qualified Code(s): T50.902A - Poisoning by unspecified drugs, medicaments and biological substances, intentional self-harm, initial encounter Suicide gesture Qualifiers: Encounter type: initial encounter Qualified Code(s): X83.8XXA - Intentional self-harm by other specified means, initial encounter Pancreatitis Qualifiers: Chronicity: acute Pancreatitis type: unspecified pancreatitis type Acute pancreatitis complication: unspecified Qualified Code(s): K85.90 - Acute pancreatitis without necrosis or infection, unspecified The scribe's documentation has been prepared under my direction and personally reviewed by me in its entirety. I confirm that the note above accurately reflects all work, treatment, procedures, and medical decision making performed by me.
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
[2019-04-11] MEDS: LACTATED RINGER'S 1,000 ML IV SCH ×2 (03:49→09:53)
[2019-04-11 05:25] LABS: Basophils # (auto) 0.03 K/uL (0-0.2); Basophils % (auto) 0.3 %; Eosinophils # (auto) 0.23 K/uL (0-0.5); Eosinophils % (auto) 2.5 %; Hemoglobin 14.3 g/dL (14.0-18.0); Immature Granulocytes # (auto) 0.02 K/uL (0.00-0.02); Immature Granulocytes % (auto) 0.2 %; Lymphocytes # (auto) 1.86 K/uL (1.2-3.4); Lymphocytes % (auto) 20.4 %; Mean Corpuscular Hgb Conc 34.9 g/dL (32-36); Mean Platelet Volume 9.1 fL (7.4-10.4); Monocytes # (auto) 0.63 K/uL (0.11-0.59); Monocytes % (auto) 6.9 %; Neutrophils # (auto) 6.36 K/uL (1.4-6.5); Neutrophils % (auto) 69.7 %; Platelet Count 239 K/uL (130-400); RDW Coefficient of Variation 13.1 % (11.5-14.5); RDW Standard Deviation 39.8 fL (36.4-46.3); Red Blood Count 4.88 M/uL (4.7-6.1); White Blood Count 9.13 K/uL (4.8-10.8)
[2019-04-11 05:43] LABS: Albumin Level 3.2 gm/dl (3.4-5.0); Calcium 8.8 mg/dl (8.5-10.1); Creatinine Clr Calc Pharmacy 95.2 ml/min; Est GFR (African American) 97.3; Potassium 3.6 mmol/L (3.5-5.1)
[2019-04-11 05:47] LABS: Bilirubin,Total 0.7 mg/dl (0.2-1); Globulin 3.3 gm/dl (2.5-4.0); Phosphorus 3.5 mg/dl (2.5-4.9); Total Protein 6.5 gm/dl (6.4-8.2)
--- NOTE | 2019-04-11 07:01 | Ultrasound Report ---
ULTRASOUND RIGHT UPPER QUADRANT ABDOMEN CLINICAL HISTORY: Elevated lipase. COMPARISON STUDY: Abdominal CT dated 03/23/2016. TECHNIQUE: Real-time, grayscale, and color flow sonography of the right upper quadrant of the abdomen was performed. Images are reviewed in the transverse and longitudinal planes. FINDINGS: Liver: The liver is normal in size and echotexture. There is no intrahepatic biliary ductal dilatatio n. The main portal vein is patent. Gallbladder: The gallbladder is normal in appearance. No gallstones are identified. There is no gallb ladder wall thickening or pericholecystic fluid. A sonographic Mayer's sign is reportedly absent. Th e common bile duct measures up to 0.4 cm in diameter. Pancreas: Visualized portions of the pancreatic head and body are normal in appearance. The splenic v ein is patent. Right kidney: Survey images of the right kidney demonstrate normal size and echotexture. There is no hydronephrosis. Ascites: None. IMPRESSION: Unremarkable sonographic assessment of the right upper quadrant. No shadowing gallstones are identified. Electronically signed by: Ashu Bettencourt M.D. 04/11/2019 7:00 AM
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
[2019-04-11] MEDS ORDERED: POTASSIUM CHLORIDE 20 MEQ TABCR PO STA (07:33)
[2019-04-11] MEDS ORDERED: TESTOSTERONE~ORDER AWAITING ACTION SCH (08:00)
[2019-04-11] MEDS ORDERED: ASPIRIN 81 MG ECTAB PO SCH (09:00)
[2019-04-11] MEDS ORDERED: ENOXAPARIN INJ 40 MG/0.4 ML SYR SQ SCH (09:00)
[2019-04-11] MEDS ORDERED: PANTOprazole 40 MG TAB PO SCH (09:00)
[2019-04-11] MEDS ORDERED: ATORVASTATIN 20 MG TAB PO SCH (11:30)
--- NOTE | 2019-04-11 11:58 | Critical Care Progress Note ---
Date of Service April 11, 2019 Assessment & Plan (1) Suicidal ideation: Patient states he was trying to get marriage counselling and he does say the swallowing of the pills is an act of stupidity. Will consult psych (2) Admitted to intensive care unit: 44 yo male with comorbidities as in HPI and PMHx admitted with an intentional overdose of mostly klonopin. He is being monitored for respiratory and cardiac depression in ICU Daily ECG inform posion control respiratory He has history of asthma and was wheezing this am a very fine end expiratory wheeze monitor in ICU for saturation. Currently on room air doing fine resume his home dose of symbicort and PRN albuterol CV His LDL is 157 would recommend low dose statin after this acute episode ASA GI diet heart healthy Pantoprazole lipase normalized Renal DC IVF patient had 4 liter in and 4 liters out. monitor and replete lytes K repleted ID no foci of infection endocrine levothyroxine 25 mcg daily TSH normal twice and as such it does not explain tachycardia DVT prophyalxis SC lovenox 40 mg Daily Will monitor in ICU for 24 hours. Total CCtime is 35 minutes At this point he may be managed on medsurg floor. Subjective Patient is awake and alert. His lipase is normal. It dropped to 202. There remains no symptoms. RUQ sonogram did not show stones. Truglyceride is not elevated. However, LDL is 157. The patient is 44 yo and he says there is strong family history of heart disease so lipitor low dose started. He wanted to go home because it is his daughters birthday and I informed him we need the clearance by psychiatry. His heart rate remains at 100 and his TSH is within normal. Review of Systems Review of Systems: All systems reviewed & are unremarkable except as noted in HPI & below Physical Exam Eyes: PERRL, conjunctivae normal, anicteric sclerae ENMT: external ear and nose normal, oropharynx normal Neck: trachea midline, no thyromegaly Respiratory: normal respiratory effort, lungs clear to auscultation Cardiovascular: Rate/Rhythm: regular rate and + tachycardic Heart Sounds: normal S1 and normal S2 Gastrointestinal (Abdomen): normal bowel sounds, soft, nontender, no hepatosplenomegaly Results & Data Vital Signs (Past 12 Hours) Vital Signs Temp Pulse Pulse Resp BP BP Pulse Ox 04/11/19 10:00 90 19 120/84 95 04/11/19 09:00 102 H 19 121/92 95 04/11/19 08:00 36.7 C 101 H 18 121/87 94 04/11/19 07:00 100 H 18 116/84 93 04/11/19 06:00 103 H 16 114/81 94 04/11/19 05:00 90 19 109/75 94 04/11/19 04:00 36.8 C 97 H 18 114/74 93 04/11/19 03:00 94 H 17 121/77 92 04/11/19 02:00 91 H 21 101/71 93 04/11/19 01:00 87 19 103/62 95 04/11/19 00:00 36.9 C 105 H 94 H 19 112/75 93
[2019-04-11] MEDS ORDERED: BUDESONIDE/FORMOTEROL FUMARATE 160/4.5 60 PUFFS/INHALER INH SCH (12:00)
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
[2019-04-11] MEDS ORDERED: ROCURONIUM BROMIDE 10 MG/ML 5 ML VIAL IV ONE (18:34)
--- NOTE | 2019-04-11 18:44 | Discharge Summary ---
Date of Service April 11, 2019 Admission HPI Per Admitting Provider Mr. Mckeon is a 44yo male with history of depression, asthma and GERD presenting with intentional overdose. Patient is a poor historian and does not provide a clear description of his actions leading up to his admission. Per report, patient recently had some legal issues and was given a DUI with potential retirement time in the future. Additionally he complains of some marital discord and increased depression and stress. states that he made some comments about ending his life rather than going to retirement. He was last seen normal this AM around 11:30 AM. His received a phone call from him in the afternoon ask ing her to come home early from work. When she got home around 15:00 he was sleeping on the couch which she states is not atypical for him. She went out to the front porch then heard a "thud" from the living room. When she returned to the living room the patient had fallen off the couch and was minimally responsive with slurred speech. She reports that he had fecal and urinary incontinence and became less responsive over time. reports empty pill bottles in the bedroom - she thinks they were Zoloft and Clonazepam. Patient intubated in the ER for airway protection and was started on Propofol gtt. He was requiring large amounts of Propofol and Versed. He partially self- extubated then the ETT was removed by the ER staff. Patient presently unable to quantify the amount of pills he took. Says he took "a handful of something". He denies Tylenol use, EtOH. Admits to marijuana use otherwise no recreational drugs. A complete ROS is difficulyt to obtain, however, patient only c omplaining only of right leg pain from a tibial plateau fracture. Principal Diagnosis polypharmacy overdose Discharge Exam The patient appeared well nourished and normally developed. Vital signs as documented. Head exam is unremarkable. normocephalic, atraumatic Neck is without jugular venous distension, thyromegaly, or lymphademopathy Lungs are clear to auscultation and percussion. Cardiac exam reveals Rhythm is regular. First and second heart sounds normal. Abdominal exam reveals normal bowel sounds, no masses, no organomegaly Extremities are nonedematous and both pedal pulses are present Neurologic exam is A&Ox3, no focal deficits, strength is equal bilateral Psychologically he is stressed but does not admit to wanting to harm himself. Skin is warm Dry without bruises or lesions Discharge Data Allergies Allergy/AdvReac Type Severity Reaction Status Date / Time animal dander Allergy Mild ITCHING Unverified 04/10/19 17:33 EYES, SNEEZING, COLD WATER AdvReac Intermediate HIVES Uncoded 04/10/19 17:33 Consultations 04/10/19 17:38 ED Decision to Admit Stat 04/10/19 19:45 Consult Case Management - Discharge Planning Routine Consult [employer] Routine Consult Psychiatry Stat Ordered Studies 04/10/19 20:44 liver Urgent Hospital Course (1) Polysubstance overdose: S/p intubation for airway protection with subsequent extubation. Remains without respiratory distress or stridor. -Psychiatry consult was petitioning for 302. I spent significant amounts of time up to an hour and 10 minutes discussing the case with can help the patient intensive care unit attending who spoke to the patient the evening prior. During that conversation with the intensive care attending Dr. Barcenas, patient stated he was not trying to commit suicide he just made a poor decision. This is the same story the patient corroborated with me. Patient's did present. I spoke to her privately away from the patient she states she feels completely comfortable having the patient return to their home as they do live together she says she does not believe he is at risk to himself or to other members of the family. She does control his prescription medications. After this discussion I spoke with the patient night asked him to absolutely be abstinent from alcohol and to call the employee assistance program at [facility] for psychological counseling tomorrow when the office reopens. He says he is already has contact information and will be glad to do that. I also supplied he can help and crisis number for the patient if he feels he is at a point where he is in an overly stressed state and needs immediate help. The patient's was in agreement to take the patient home and her care (2) Suicide gesture: Despite multiple inputs from her psychiatric providers, may be the attending record having to perform the final verification of involuntary commission of this patient to inpatient psych do not believe this was a suicide gesture (3) Pancreatitis: Elevated lipase, abdominal exam benign. LFTs with no suggestion of obstructive disease or hepatitis. (4) Asthma, moderate persistent: Chronic. Stable. -Albuterol PRN -Closely monitor respiratory status for depression, stridor (5) GERD (gastroesophageal reflux disease): Chronic. Stable -Continue Omeprazole Total Time Total Time Spent Total Time Spent (In Minutes): greater than 30 minutes were required to prepare discharge Discharge Plan Discharge Items Patient Disposition: Home - Self-Care Reason For Visit: OVERDOSE Discharge Diagnosis: overdose Discharge Goals: Decrease discomfort Activity: Resume your previous activity Non-emergency contact: Primary Care Provider and Psychiatrist Call non-emergency contact if: you have any medication questions Follow-up/Referrals: PCP,NO [Primary Care Provider] - Diet: Regular Addtl Provider Instructions: as we discussed, no alcohol of any kind only take prescribed medicines as directed on prescription on 04/12, call EAP and make appointment If you feel stressed and overwhelmed please call crisis/ can help [phone] Prescriptions: Continued 4 Way Nasal [place] Not Applicable UD RF: 0 clonazepam [Klonopin] 0.5 mg tablet 0.5 mg PO BID RF: 0 calcium polycarbophil [Fiber-Tabs] 625 mg Tablet 1,250 mg PO DAILY RF: 0 docusate sodium 100 mg Capsule 100 mg PO DAILY PRN (Reason: Constipation) RF: 0 cholecalciferol (vitamin D3) 50,000 unit capsule 50,000 unit PO WK RF: 0 Probiotic 3 billion cell Capsule PO DAILY RF: 0 levothyroxine [Synthroid] 25 mcg Tablet 25 mcg PO DAILY RF: 0 aspirin [Aspir-Low] 81 mg Tablet,Delayed Release (Dr/Ec) 81 mg PO DAILY RF: 0 acetaminophen [Tylenol Extra Strength] 500 mg Tablet 1,000 mg PO Q8 PRN (Reason: funez/pain) RF: 0 loratadine-pseudoephedrine [Claritin-D 24 Hour] 10-240 mg Tablet Extended Release 24 Hr 1 tab PO DAILY RF: 0 ibuprofen [Advil] 200 mg Tablet 600 mg PO Q8 PRN (Reason: Pain) RF: 0 omeprazole 20 mg capsule,delayed release(DR/EC) 20 mg PO DAILY RF: 0 albuterol sulfate 90 mcg/actuation Hfa Aerosol Inhaler 2 puff INHALATION QID PRN (Reason: Shortness Of Breath Or Wheezing) RF: 0 sertraline [Zoloft] 50 mg tablet 100 mg PO DAILY RF: 0 testosterone 50 mg/5 gram (1 %) gel 1 g Topical DAILY RF: 0 Stand-Alone Forms: [facility] Discharge Orders: Discharge Order (Routine); Ordered 04/11/19 Ordered By: Juan A Leung Admission Data Admit Date/Time: 04/10/19 18:47 Attending Provider: Juan A Leung Admit Provider: Tete Padron Primary Care Provider: PCP,NO Other Providers: Tete Padron ; Yeni Phillips ; Ashu Vargas ; Skyler Looney ; Gucci Badillo ; Chandu Walsh ; Chavez Chavez ; Nancy Wade ; Leslee Valdivia ; Tiago Bermeo ; Patel Bajwa ; Bryon Tan ; Harish Dobbins Service: Intensive Care Unit Other Interventions: Discharge Summary Assessment (RN) Last Done: 04/11/19 18:17 DC Date/Time DO NOT enter until pt leaves facility: 04/11/19 18:35
[2019-04-12] MEDS ORDERED: LEVOTHYROXINE SODIUM 25 MCG TABLET PO SCH (06:30)
[2019-04-13 12:56] LABS: 7-Aminoclonaz, Confirm >2000 NG/ML (CUTOFF=25); Cocaine, Urine 669 NG/ML (CUTOFF=100); Hydro-Alp Ur, GC/MS NEGATIVE NG/ML (CUTOFF=25); Hydroxyethylflurazepam, Conf NEGATIVE NG/ML (CUTOFF=50); Hydroxytriazolam NEGATIVE NG/ML (CUTOFF=50); Lorazepam, Ur GC/MS NEGATIVE NG/ML (CUTOFF=50); Marijuana Quant, GCMS Urine 79 NG/ML (CUTOFF=5); Nordiazepam, Confirm NEGATIVE NG/ML (CUTOFF=50); Oxazepam Ur, GC/MS NEGATIVE NG/ML (CUTOFF=50); Temazepam, Confirm NEGATIVE NG/ML (CUTOFF=50)
== END 2019-04-11 18:35 | disposition home or self-care (01) | DRG 917 ==
LOC: ED 16:29 → 1E 18:47 → SUATTDRO 18:47 → 1E 19:16

== ENCOUNTER 2022-10-07 02:50 | Inpatient (IN) ==
[2022-10-07] MEDS ORDERED: ONDANSETRON INJ 2 MG/ML 2 ML VIAL IV STA (03:11)
[2022-10-07] MEDS ORDERED: fentaNYL citrate 100 MCG/2 ML VIAL IV STA ×2 (03:11→04:34)
--- NOTE | 2022-10-07 03:20 | Emergency Department Note ---
Impression & Plan Seizure, V tach, Cervical strain, Blunt trauma of face, Contusion of elbow, right Admit to the [facility] ED Provider Note NAME: FARHAT [id number] CLARISSA AGE: 47 SEX: M ARRIVES VIA: Ambulance INFORMANT: Patient and guards ED PROVIDER(S): Mehreen Jerome DO CHIEF COMPLAINT: Seizure PLAN: Disposition: Admit to the [facility] Condition: Guarded MEDICAL DECISION MAKING: This is a 47-year-old male patient who presents to the emergency department complaining of head and neck pain after suffering a seizure at [facility]. The patient fell forward striking his face off of a metal locker. He complained of pain in the face, neck and right elbow. CT scan of the brain, f acial bones and cervical spine were all negative. X-ray of the right shoulder and right elbow were negative. During his stay in the emergency department, the patient had a run of ventricular tachycardia on the quality assurance monitor. This begs a question whether the patient actually had a true seizure or had a cardiac dysrhythmia which led to syncope at the snf. I discussed the case with the [facility] Hospitalist and they will evaluate the patient for admission to the hospital. Triage Nursing notes reviewed and agree with them. Additional history obtained from the guards who accompany him Vital Signs: reviewed and are unremarkable Differential diagnosis: Seizure C-spine fracture Spinal cord injury Facial bone fracture Intracranial trauma Cardiac dysrhythmia ER treatment provided: IV Zofran IV fentanyl x 2 IV Keppra load IV Dilaudid Diagnostics interpreted by me: ECG: Normal sinus rhythm at a rate of [address] segment elevation or signs of ischemia. There is no ectopy. Cardiac Monitoring: normal sinus rhythm at a rate of 89 The patient had a run of V. tach in the emergency department Laboratory studies: See below Imaging studies: As per stat rad CT head: No ICH, mass-effect or edema. No evidence of acute cortical stroke. Visualized sinuses and mastoid air cells are clear. CT facial: No facial fractures. The paranasal sinuses and mastoid air cells are clear. The facial soft tissues are unremarkable. CT C-spine: No evidence of fracture or malalignment HPI: 47/M arrives for evaluation of seizure. Patient has a history of seizures with the last one being in 2017. He had been taking Keppra but has stopped taking that medication. According to the guards, the patient jumped down from his top bunk stood there momentarily and then fell forward striking his face off of a locker. He dented the locker landing in the supine position and began to seize. The seizure lasted for approximately 3 minutes. Upon EMS arrival, the patient was postictal. He has since returned to his baseline mental status and is complaining of significant pain in his neck, right side of his face, right elbow and right shoulder. ROS: See above HPI for pertinent positives & negatives. A total of 10 systems reviewed and were otherwise negative. PAST MEDICAL HISTORY:Seizures PAST SURGICAL HISTORY:See Below FAMILY HISTORY:See Below [facility] H[facility] MEDICATIONS:See Below ALLERGIES:See Below VITALS:See Below PHYSICAL EXAMINATION: HEENT: Head - normocephalic with obvious trauma to the right side of his face. Pupils are equal, round, and reactive to light. Extraocular eye muscles are intact and sclera are anicteric. Ears - bilaterally patent canals with no evidence of hemotympanum. Nose - moist nasal mucosa without evidence of trauma or discharge. Mouth - moist buccal mucosa with no trauma to the teeth or signs of malocclusion. Neck: The cervical collar was temporarily removed while in-line stabilization was maintained. The neck is supple and there is moderate pain to palpation over the posterior cervical spine and no obvious step-offs or deformities. There is no JVD or tracheal deviation. Chest: There are no signs of deformities, contusions or abrasions to the chest wall. There is no obvious crepitus or paradoxical chest rise. Heart: Regular, rate, and rhythm. There is a normal S1 and S2 with no murmurs, clicks, or gallops appreciated. Lungs: Clear to auscultation bilaterally with no wheezes, rales, or rhonchi. Abdomen: Soft, completely nontender, nondistended, with good bowel sounds. There is no sign of trauma such as contusions, abrasions or penetrations. There are no palpable pulsatile masses or hepatosplenomegaly. There is no guarding, rigidity, or rebound noted. Pelvis: Stable to rock and compression. Extremities: No obvious trauma, deformities, contusions, or edema. There are easily palpable peripheral pulses. Neuro: The patient is awake and alert and easily able to follow commands. Muscle strength is 5 out of 5 in all 4 extremities. Otherwise, neuro exam is unremarkable. ED COURSE: Times/Reassessments: 0300: Patient was evaluated in room A-3. A complete history and physical was performed. Laboratory studies were drawn as above. Patient was anxious to use a urinal as he felt his bladder was full but was unable to pass his urine. An order was placed for continuous cardiac monitoring. The patient was in a normal sinus rhythm at a rate of 89. He had a twelve-lead EKG obtained. He was given a dose of IV fentanyl for pain. He went for CT scan of his brain, facial bones and cervical spine. He had plain films of his right shoulder and right elbow. While the patient was on the quality assurance monitor. He had a run of ventricular tachycardia. He was moved to room A1 and the defibrillation pads were placed on his chest. He was loaded with IV Keppra. I discussed the case with the [facility] Hospitalist and he will be evaluated for further inpatient care. Mehreen Jerome DO Past Med/Surg History Medical History (Updated 10/07/22 @ 18:08 by Mehreen Jerome DO) Allergic rhinitis Asthma, moderate persistent Cervical strain Closed head injury Compression fracture of spine Concussion Depression Prior SI, per no prior suicide attempts Fall GERD (gastroesophageal reflux disease) Scalp laceration Scoliosis Tobacco use disorder Surgical History History of nasal septoplasty "Dr Coelho (CN), [facility], [place] 04/2004" History of repair of anterior cruciate ligament of left knee " L ACL 1997" Hx of total knee arthroplasty "L knee 11/2014" Family History Other Coronary heart disease Social History Smoking Status: Former smoker Tobacco Type: Smokeless Tobacco (Dip or Chew) Second Hand Exposure: No; Do You Dip or Chew Tobacco: Yes; Hx Alcohol Use: Yes Alcohol type: beer Hx Substance Use: No (denies) Preferred Language: Cypriot Communication Ability: Effective Visual Impairment: No Limitations Workday Senior Associate Required: No Beliefs That Will Affect Care: None marital status: Current Living Situation: Other Current Living Situation Comment: [facility] current occupational status: employed Other Information That Helps Us Care for You: No Feels Safe at Home: Yes Safety Concerns: Feels Safe At This Time Assistive Devices: None Allergies Allergies Allergy/AdvReac Type Severity Reaction Status Date / Time bee venom protein (honey bee) Allergy Severe Anaphylaxis Verified 10/07/22 03:03 animal dander Allergy Intermediate ITCHING Verified 10/07/22 03:03 EYES, SNEEZING, propoxyphene Allergy Unknown ON [facility] MED Verified 10/07/22 03:03 LIST COLD WATER AdvReac Intermediate HIVES Uncoded 10/07/22 03:03 Home Meds Home Medications Medication Instructions Recorded Confirmed albuterol sulfate 90 mcg/actuation 2 puff inhalation Q4 PRN 09/10/18 10/07/22 aerosol inhaler cough,sob,wheeze sertraline 100 mg tablet 100 mg PO DAILY 01/28/20 10/07/22 albuterol sulfate 2.5 mg/3 mL 2.5 mg inhalation QID PRN 10/07/22 10/07/22 (0.083 %) solution for nebulization Shortness Of Breath Or Wheezing atorvastatin 40 mg tablet 40 mg PO DAILY 10/07/22 10/07/22 fluticasone 250 mcg-salmeterol 50 1 inh inhalation BID 10/07/22 10/07/22 mcg/dose blistr powdr for inhalation (Wixela Inhub) ibuprofen 400 mg tablet 400 mg PO BID PRN Pain 10/07/22 10/07/22 levothyroxine 75 mcg tablet 75 mcg PO DAILY 10/07/22 10/07/22 multivitamin 1 tab PO DAILY 10/07/22 10/07/22 omeprazole 20 mg tablet,delayed 20 mg PO DAILY 10/07/22 10/07/22 release Results & Data (ED) Vital Signs Vital Signs - 24 hr 10/07/22 03:03 10/07/22 02:44 10/07/22 03:12 Temperature 36.7 C Temperature Source Oral Pulse Rate 92 H 87 Pulse Rate from SpO2 Sensor Pulse Rhythm Regular Pulse Strength Normal Respiratory Rate 20 20 Respiratory Effort / Characteristics Non-Labored Spontaneous Respiratory Depth Normal Respiratory Pattern Regular Blood Pressure 128/93 Blood Pressure Mean 104 Blood Pressure Position Lying Pulse Oximetry 94 93 93 Oxygen Delivery Method Room Air Room Air Room Air Sepsis Recent Fever Within 48 Hours No Sepsis New/Unexplained Change in Mental Status No Sepsis Action Taken by Nursing No Action Required 10/07/22 04:00 10/07/22 04:31 10/07/22 04:47 Temperature Temperature Source Pulse Rate 89 94 H 92 H Pulse Rate from SpO2 Sensor 88 91 H 96 H Pulse Rhythm Pulse Strength Respiratory Rate 13 21 16 Respiratory Effort / Characteristics Respiratory Depth Respiratory Pattern Blood Pressure 124/91 Blood Pressure Mean 102 Blood Pressure Position Pulse Oximetry 91 97 93 Oxygen Delivery Method Sepsis Recent Fever Within 48 Hours Sepsis New/Unexplained Change in Mental Status Sepsis Action Taken by Nursing 10/07/22 05:00 10/07/22 05:22 10/07/22 05:30 Temperature Temperature Source Pulse Rate 106 H 93 H 100 H Pulse Rate from SpO2 Sensor 104 H 91 H 99 H Pulse Rhythm Pulse Strength Respiratory Rate 19 22 17 Respiratory Effort / Characteristics Respiratory Depth Respiratory Pattern Blood Pressure 117/78 127/89 Blood Pressure Mean 91 101 Blood Pressure Position Pulse Oximetry 94 95 93 Oxygen Delivery Method Sepsis Recent Fever Within 48 Hours Sepsis New/Unexplained Change in Mental Status Sepsis Action Taken by Nursing 10/07/22 05:46 10/07/22 05:59 10/07/22 06:00 Temperature Temperature Source Pulse Rate 110 H 102 H 93 H Pulse Rate from SpO2 Sensor 103 H 90 94 H Pulse Rhythm Pulse Strength Respiratory Rate 21 24 23 Respiratory Effort / Characteristics Respiratory Depth Respiratory Pattern Blood Pressure 130/91 119/86 121/82 Blood Pressure Mean 104 97 95 Blood Pressure Position Pulse Oximetry 94 92 93 Oxygen Delivery Method Sepsis Recent Fever Within 48 Hours Sepsis New/Unexplained Change in Mental Status Sepsis Action Taken by Nursing Laboratory Data Result diagrams: 10/07/22 03:00 10/07/22 03:00 Lab Results 10/07/22 10/07/22 10/07/22 Range/Units 03:00 03:00 03:00 WBC 6.72 (4.8-10.8) K/ul RBC 4.69 (4.63-6.08) M/uL Hgb 14.0 (14.0-18.0) g/dl Hct 40.2 (40.1-51.0) % MCV 85.7 (80.0-100.0) fL MCH 29.9 (25.0-34.0) pg MCHC 34.8 (32.0-36.0) g/dL RDW Std Deviation 40.3 (36.4-46.3) fL RDW Coeff of Ingris 13.0 (11.5-14.5) % Plt Count 198 (130-400) K/uL MPV 9.5 (9.4-12.4) fL Immature Gran % (Auto) 0.3 % Neut % (Auto) 76.4 % Lymph % (Auto) 11.0 % Cassia % (Auto) 11.0 % Eos % (Auto) 0.7 % Baso % (Auto) 0.6 % Neut # (Auto) 5.13 (1.4-6.5) K/uL Lymph # (Auto) 0.74 L (1.2-3.4) K/uL Cassia # (Auto) 0.74 (0.24-0.82) K/uL Eos # (Auto) 0.05 (0-0.50) K/uL Baso # (Auto) 0.04 (0-0.2) K/uL Immature Gran # (Auto) 0.02 (0.00-0.02) K/uL Sodium 137 (136-145) mmol/L Potassium 3.8 (3.5-5.1) mmol/L Chloride 103 (98-107) mmol/L Carbon Dioxide 25 (21-32) mmol/L Anion Gap 9 (3-11) BUN 8 (6-23) mg/dl Creatinine 0.76 (0.6-1.4) mg/dl Est Cr Clr Drug Dosing 130.8 ml/min Est GFR ( Amer) 125.9 ml/min Est GFR (Non-Af Amer) 108.6 ml/min BUN/Creatinine Ratio 10.5 (10-20) Glucose 101 H (70-99(Fasting)) mg/dl Calcium 9.5 (8.5-10.1) mg/dl Phosphorus (2.5-4.9) mg/dl Magnesium (1.7-2.4) mg/dl Total Bilirubin 0.4 (0.2-1.0) mg/dl AST 13 (13-39) U/L ALT 16 (7-52) U/L Alkaline Phosphatase 61 (34-104) U/L Troponin I High Sens < 2.3 (0-20) pg/ml Total Protein 6.9 (6.0-8.3) gm/dl Albumin 4.4 (3.4-5.0) gm/dl Globulin 2.5 (2.5-4.0) gm/dl Albumin/Globulin Ratio 1.8 (0.9-2) TSH (0.300-4.500) uIu/ml SARS-CoV-2, RNA, NAAT (NEGATIVE) 10/07/22 10/07/22 10/07/22 Range/Units 05:01 05:01 05:01 WBC (4.8-10.8) K/ul RBC (4.63-6.08) M/uL Hgb (14.0-18.0) g/dl Hct (40.1-51.0) % MCV (80.0-100.0) fL MCH (25.0-34.0) pg MCHC (32.0-36.0) g/dL RDW Std Deviation (36.4-46.3) fL RDW Coeff of Ingris (11.5-14.5) % Plt Count (130-400) K/uL MPV (9.4-12.4) fL Immature Gran % (Auto) % Neut % (Auto) % Lymph % (Auto) % Cassia % (Auto) % Eos % (Auto) % Baso % (Auto) % Neut # (Auto) (1.4-6.5) K/uL Lymph # (Auto) (1.2-3.4) K/uL Cassia # (Auto) (0.24-0.82) K/uL Eos # (Auto) (0-0.50) K/uL Baso # (Auto) (0-0.2) K/uL Immature Gran # (Auto) (0.00-0.02) K/uL Sodium (136-145) mmol/L Potassium (3.5-5.1) mmol/L Chloride (98-107) mmol/L Carbon Dioxide (21-32) mmol/L Anion Gap (3-11) BUN (6-23) mg/dl Creatinine (0.6-1.4) mg/dl Est Cr Clr Drug Dosing ml/min Est GFR ( Amer) ml/min Est GFR (Non-Af Amer) ml/min BUN/Creatinine Ratio (10-20) Glucose (70-99(Fasting)) mg/dl Calcium (8.5-10.1) mg/dl Phosphorus 3.4 (2.5-4.9) mg/dl Magnesium 2.0 (1.7-2.4) mg/dl Total Bilirubin (0.2-1.0) mg/dl AST (13-39) U/L ALT (7-52) U/L Alkaline Phosphatase (34-104) U/L Troponin I High Sens (0-20) pg/ml Total Protein (6.0-8.3) gm/dl Albumin (3.4-5.0) gm/dl Globulin (2.5-4.0) gm/dl Albumin/Globulin Ratio (0.9-2) TSH 3.013 (0.300-4.500) uIu/ml SARS-CoV-2, RNA, NAAT NEGATIVE (NEGATIVE) Administered Medications Acetaminophen (Acetaminophen 500 Mg Tab) 1,000 mg PO Q8H LAKSHMI Stop: 11/06/22 14:59 Last Admin: 10/07/22 16:10 Dose: 1,000 mg Documented By: SLICK Albuterol (Albuterol Hfa 8 Gm Inhaler) 2 puffs INH Q4R PRN PRN Reason: cough,sob,wheeze Stop: 11/06/22 08:50 Last Admin: 10/07/22 16:30 Dose: 2 puffs Documented By: MARY Atorvastatin Calcium (Atorvastatin 40 Mg Tab) 40 mg PO DAILY LAKSHMI Stop: 11/06/22 08:59 Last Admin: 10/07/22 10:42 Dose: 40 mg Documented By: SLICK Fluticasone/Vilanterol (Fluticasone/Vilanterol 200/25mcg 14 Puffs/Inhaler) 1 puffs INH DAILY LAKSHMI; Protocol Stop: 11/07/22 08:59 Last Admin: 10/07/22 10:43 Dose: 1 puffs Documented By: SLICK Heparin Sodium (Porcine) (Heparin Sod 5,000 Unit/0.5 Ml Vial) 5,000 units SQ Q8 LAKSHMI Stop: 11/06/22 08:50 Last Admin: 10/07/22 15:55 Dose: 5,000 units Documented By: Admin: 10/07/22 10:43 Dose: 5,000 units Documented By: SLICK Levetiracetam 500 mg/ Sodium (Chloride) 105 mls @ 420 mls/hr IV Q12H LAKSHMI Stop: 11/06/22 16:59 Last Infusion: 10/07/22 17:29 Dose: 0 mls/hr Documented By: Admin: 10/07/22 17:01 Dose: 420 mls/hr Documented By: SLICK Ketorolac Tromethamine (Ketorolac Tromethamine 15 Mg/Ml Vial) 15 mg IV Q6H PRN PRN Reason: Pain not controlled by Tylenol Stop: 10/12/22 12:31 Last Admin: 10/07/22 15:58 Dose: 15 mg Documented By: SLICK Levothyroxine Sodium (Levothyroxine Sodium 75 Mcg Tablet) 75 mcg PO DAILYBB [facility] Stop: 11/06/22 08:59 Last Admin: 10/07/22 10:59 Dose: 75 mcg Documented By: SLICK Pantoprazole Sodium (Pantoprazole 40 Mg Tab) 40 mg PO DAILY [facility]; Protocol Stop: 11/06/22 08:59 Last Admin: 10/07/22 10:42 Dose: 40 mg Documented By: SLICK Sertraline HCl (Sertraline Hcl 100 Mg Tablet) 100 mg PO DAILY [facility] Stop: 11/06/22 08:59 Last Admin: 10/07/22 10:59 Dose: 100 mg Documented By: SLICK Sodium Chloride (Sodium Chloride 0.65% Na Soln 45 Ml ([place])) 2 sprays KERRI BID [facility] Stop: 11/06/22 12:44 Last Admin: 10/07/22 15:41 Dose: Not Given Documented By: SLICK Discontinued Medications Acetaminophen (Acetaminophen 325 Mg Tab) Confirm Administered Dose 650 mg .ROUTE .STK-MED ONE Stop: 10/07/22 08:33 Last Admin: 10/07/22 09:08 Dose: Not Given Documented By: SLICK Fentanyl Citrate (Fentanyl Citrate 100 Mcg/2 Ml Vial) 50 mcg IV NOW STA Stop: 10/07/22 03:12 Last Admin: 10/07/22 03:40 Dose: 50 mcg Documented By: JULIO CÉSAR Fentanyl Citrate (Fentanyl Citrate 100 Mcg/2 Ml Vial) 50 mcg IV NOW STA Stop: 10/07/22 04:35 Last Admin: 10/07/22 04:58 Dose: 50 mcg Documented By: PRATEEK Hydromorphone HCl (Hydromorphone Inj 0.5 Mg/0.5 Ml Syr) 0.5 mg IV NOW STA Stop: 10/07/22 06:06 Last Admin: 10/07/22 06:10 Dose: 0.5 mg Documented By: PRATEEK Levetiracetam 2,000 mg/ Sodium (Chloride) 270 mls @ 999 mls/hr IV NOW STA Stop: 10/07/22 04:59 Last Infusion: 10/07/22 05:44 Dose: 0 mls/hr Documented By: Admin: 10/07/22 05:13 Dose: 999 mls/hr Documented By: PRATEEK Sodium Chloride (Nss) 500 mls @ 125 mls/hr IV .Q4H LAKSHMI Stop: 11/06/22 04:44 Last Admin: 10/07/22 11:11 Dose: Not Given Documented By: Infusion: 10/07/22 11:11 Dose: 0 mls/hr Documented By: Admin: 10/07/22 04:58 Dose: 125 mls/hr Documented By: PRATEEK Sodium Chloride (Nss 1000ml) 1,000 mls @ 125 mls/hr IV .Q8H LAKSHMI Stop: 10/07/22 16:50 Last Infusion: 10/07/22 13:00 Dose: 0 mls/hr Documented By: Admin: 10/07/22 09:08 Dose: 125 mls/hr Documented By: SLICK Menthol (Cough Drop (Sugar Free) North 24 North/1 Box) Confirm Administered Dose 24 north BUCCAL .STK-MED ONE Stop: 10/07/22 14:51 Last Admin: 10/07/22 16:06 Dose: 24 north Documented By: SLICK Ondansetron HCl (Ondansetron Inj 2 Mg/Ml 2 Ml Vial) 4 mg IV NOW STA Stop: 10/07/22 03:12 Last Admin: 10/07/22 03:40 Dose: 4 mg Documented By: JULIO CÉSAR Oxycodone HCl (Oxycodone Hcl Ir 5 Mg Tab (Immediate Release)) 5 mg PO Q4H PRN PRN Reason: Pain Stop: 10/21/22 09:14 Last Admin: 10/07/22 10:48 Dose: 5 mg Documented By: SLICK Potassium Chloride (Potassium Chloride 20 Meq/15 Ml Udc) 20 meq PO NOW STA Stop: 10/07/22 08:52 Last Admin: 10/07/22 10:42 Dose: 20 meq Documented By: DLN Imaging Data Radiologist's Impression: Face CT 10/07/22 03:12 CT SCAN OF THE FACIAL BONES WITHOUT IV CONTRAST CLINICAL HISTORY: Trauma. Seizure. Facial injury. COMPARISON STUDY: CT scans of the brain performed concurrently on 10/07/2022 and 02/24/2017. TECHNIQUE: High-resolution CT scan of the facial bones is performed. Images are reviewed in the axial, sagittal, and coronal planes. IV contrast was not administered for this examination. A dose lowering technique was utilized adhering to the principles of ALARA. CT DOSE: 1082.53 mGy.cm FINDINGS: The skeletal structures are well mineralized. There is no evidence of facial bone fracture. There is chronic deformity of the nasal bones. The bony orbits are intact and the orbital contents are within normal limits. The zygomatic arches and pterygoid plates are preserved. The maxilla and mandible are intact. Degenerative change is noted in the temporomandibular joints. There are no remaining maxillary teeth. There are no layering blood products within the paranasal sinuses. There is moderate to advanced mucosal thickening throughout the ethmoid sinuses. Mild mucosal thickening is noted within the frontal, sphenoid, and maxillary sinuses. The mastoid air cells are well pneumatized. The visualized calvarium and upper cervical spine are maintained. Partially imaged brain parenchyma is within normal limits. IMPRESSION: There is no evidence of acute facial bone fracture. ACT 112: Negative or not required by law. Electronically signed by: Ashu Bettencourt M.D. 10/07/2022 6:[address] 10/07/22 03:12 CT SCAN OF THE BRAIN WITHOUT IV CONTRAST CLINICAL HISTORY: Seizure. Trauma. COMPARISON STUDY: CT of the brain dated 02/24/2017. TECHNIQUE: Unenhanced axial CT scan of the brain is performed from the vertex to the skull base. A dose lowering technique was utilized adhering to the principles of ALARA. FINDINGS: Brain parenchyma: The brain parenchyma is normal in appearance. There is no hemorrhage, mass effect, or evidence of acute territorial ischemia by CT criteria. Regan-white matter differentiation is preserved. No extra-axial fluid collection is seen. Ventricles, sulci, cisterns: Normal in configuration. Intracranial vasculature: The visualized intracranial vasculature at the skull base is normal in appearance. Calvarium: There is no depressed calvarial fracture. Sinuses and mastoids: There is moderate to advanced mucosal thickening within the ethmoid sinuses. Mild mucosal thickening is noted within the frontal, sphenoid, and maxillary sinuses. The mastoid air cells are well pneumatized. Orbits: The bony orbits are grossly intact. IMPRESSION: No acute intracranial abnormality. ACT 112: Negative or not required by law. Electronically signed by: Ashu Bettencourt M.D. 10/07/2022 6:22 AM Discharge Plan Visit Data Chief Complaint: Seizure ED Provider: Mehreen Jerome Discharge Problem: Seizure, V tach, Cervical strain, Blunt trauma of face, Contusion of elbow, right Patient Disposition: Admitted As Inpatient Discharge Instructions Interventions: ED Discharge Assessment Last Done: 10/07/22 07:53 : Cervical strain Qualifiers: Encounter type: initial encounter Qualified Code(s): S16.1XXA - Strain of muscle, fascia and tendon at neck level, initial encounter Blunt trauma of face Qualifiers: Encounter type: initial encounter Qualified Code(s): S09.93XA - Unspecified injury of face, initial encounter Contusion of elbow, right Qualifiers: Encounter type: initial encounter Qualified Code(s): S50.01XA - Contusion of right elbow, initial encounter
[2022-10-07 03:27] LABS: Basophils # (auto) 0.04 K/uL (0-0.2); Basophils % (auto) 0.6 %; Eosinophils # (auto) 0.05 K/uL (0-0.50); Eosinophils % (auto) 0.7 %; Hematocrit (blood only) 40.2 % (40.1-51.0); Immature Granulocytes # (auto) 0.02 K/uL (0.00-0.02); Immature Granulocytes % (auto) 0.3 %; Lymphocytes # (auto) 0.74 K/uL (1.2-3.4); Mean Corpuscular Hemoglobin 29.9 pg (25.0-34.0); Mean Corpuscular Hgb Conc 34.8 g/dL (32.0-36.0); Mean Corpuscular Volume 85.7 fL (80.0-100.0); Mean Platelet Volume 9.5 fL (9.4-12.4); Monocytes # (auto) 0.74 K/uL (0.24-0.82); Neutrophils # (auto) 5.13 K/uL (1.4-6.5); Neutrophils % (auto) 76.4 %; Platelet Count 198 K/uL (130-400); RDW Standard Deviation 40.3 fL (36.4-46.3); Red Blood Count 4.69 M/uL (4.63-6.08); White Blood Count 6.72 K/ul (4.8-10.8)
[2022-10-07 03:38] LABS: Albumin Globulin Ratio 1.8 (0.9-2); Albumin Level 4.4 gm/dl (3.4-5.0); BUN Creatinine Ratio 10.5 (10-20); Bilirubin,Total 0.4 mg/dl (0.2-1.0); Calcium 9.5 mg/dl (8.5-10.1); Creatinine Clr Calc Pharmacy 130.8 ml/min; Est GFR (African American) 125.9 ml/min; Est GFR (Non-African American) 108.6 ml/min; Globulin 2.5 gm/dl (2.5-4.0); Potassium 3.8 mmol/L (3.5-5.1); Total Protein 6.9 gm/dl (6.0-8.3)
[2022-10-07] MEDS: SODIUM CHLORIDE 0.9% 500 ML IV SCH ×2 (04:58→11:11)
[2022-10-07 05:33] LABS: Phosphorus 3.4 mg/dl (2.5-4.9)
--- NOTE | 2022-10-07 05:37 | XRay Report ---
RIGHT ELBOW 3 VIEWS CLINICAL HISTORY: Right elbow injury. Fall. FINDINGS: 3 views of the right elbow are compared to study dated 03/28/2019. The skeletal structures a re well mineralized. No fracture is seen. There is no joint effusion. The joint spaces are maintained . Mild dorsal soft tissue edema is noted. IMPRESSION: No acute bony abnormality. Electronically signed by: Ashu Bettencourt M.D. 10/07/2022 5:36 AM
[2022-10-07] MEDS ORDERED: HYDROmorphone INJ 0.5 MG/0.5 ML SYR IV STA (06:05)
--- NOTE | 2022-10-07 06:10 | XRay Report ---
SINGLE VIEW CHEST CLINICAL HISTORY: Atypical chest pain. Seizure. FINDINGS: An AP, portable, upright chest radiograph is compared to study dated 01/28/2020. Correlation is made with chest CT dated 09/01/2016. The cardiomediastinal silhouette is unremarkable. The lungs and pleural spaces are clear noting bibasilar scarring/atelectasis. No pneumothorax is seen. The bony thorax is grossly intact. IMPRESSION: No acute cardiopulmonary abnormality. ACT 112: Negative or not required by law. Electronically signed by: Ashu Bettencourt M.D. 10/07/2022 6:09 AM
--- NOTE | 2022-10-07 06:11 | XRay Report ---
RIGHT SHOULDER 3 VIEWS FINDINGS: Fall. Seizure. FINDINGS: 3 views of the right shoulder are obtained. No prior studies are available for comparison a t the time of dictation. The skeletal structures are well-mineralized. There is no radiographic evide nce of acute fracture or dislocation. There is chronic posttraumatic deformity of the distal clavicle . The glenohumeral articulation is maintained. Minimal degenerative change is noted at the acromiocla vicular joint. The overlying soft tissues are within normal limits. The imaged right lung parenchyma appears clear. IMPRESSION: No acute bony abnormality is identified. Electronically signed by: Ashu Bettencourt M.D. 10/07/2022 6:10 AM
--- NOTE | 2022-10-07 06:18 | CT Scan Report ---
CT SCAN OF THE CERVICAL SPINE CLINICAL HISTORY: Seizure. Trauma. COMPARISON STUDY: CT of the cervical spine dated 02/24/2017. TECHNIQUE: CT scan of the cervical spine is performed from the skull base to the upper thoracic spine . Images are reviewed in the axial, sagittal, and coronal planes. IV contrast was not administered fo r this examination. A dose lowering technique was utilized adhering to the principles of ALARA. FINDINGS: Skeletal structures: The skeletal structures are well mineralized. There is no evidence of fracture o r subluxation involving the cervical spine. Vertebral body height and alignment are maintained. Ther e is straightening of cervical lordosis. Anterior osteophytes are seen throughout. The odontoid proce ss and lateral masses are intact. The atlantoaxial articulation is preserved noting productive degene rative change. The spinous processes appear intact. Mild facet arthropathy is noted. Intervertebral discs: There is moderate disc space narrowing at C3-C4 and C4-C5. Mild disc space narr owing is seen at the remaining cervical levels. Central canal: Posterior disc osteophyte complexes at C3-C4 and C4-C5 may contribute to mild acquired compromise of the central canal. Soft tissues: The prevertebral and paraspinous soft tissues are within normal limits. Calvarium: The visualized calvarium at the skull base appears intact. Brain parenchyma: Partially visualized brain parenchyma at the skull base is within normal limits. Sinuses and mastoids: Mucosal thickening is noted in the ethmoid, sphenoid, and maxillary sinuses. Th e mastoid air cells are well pneumatized. Lung apices: Clear as visualized. IMPRESSION: There is no evidence of fracture or subluxation involving the cervical spine. ACT 112: Negative or not required by law. Electronically signed by: Ashu Bettencourt M.D. 10/07/2022 6:15 AM
--- NOTE | 2022-10-07 06:23 | CT Scan Report ---
CT SCAN OF THE BRAIN WITHOUT IV CONTRAST CLINICAL HISTORY: Seizure. Trauma. COMPARISON STUDY: CT of the brain dated 02/24/2017. TECHNIQUE: Unenhanced axial CT scan of the brain is performed from the vertex to the skull base. A d ose lowering technique was utilized adhering to the principles of ALARA. FINDINGS: Brain parenchyma: The brain parenchyma is normal in appearance. There is no hemorrhage, mass effect, or evidence of acute territorial ischemia by CT criteria. Regan-white matter differentiation is preser katie. No extra-axial fluid collection is seen. Ventricles, sulci, cisterns: Normal in configuration. Intracranial vasculature: The visualized intracranial vasculature at the skull base is normal in appe arance. Calvarium: There is no depressed calvarial fracture. Sinuses and mastoids: There is moderate to advanced mucosal thickening within the ethmoid sinuses. Mi ld mucosal thickening is noted within the frontal, sphenoid, and maxillary sinuses. The mastoid air c ells are well pneumatized. Orbits: The bony orbits are grossly intact. IMPRESSION: No acute intracranial abnormality. ACT 112: Negative or not required by law. Electronically signed by: Ashu Bettencourt M.D. 10/07/2022 6:22 AM
--- NOTE | 2022-10-07 06:29 | CT Scan Report ---
CT SCAN OF THE FACIAL BONES WITHOUT IV CONTRAST CLINICAL HISTORY: Trauma. Seizure. Facial injury. COMPARISON STUDY: CT scans of the brain performed concurrently on 10/07/2022 and 02/24/2017. TECHNIQUE: High-resolution CT scan of the facial bones is performed. Images are reviewed in the axia l, sagittal, and coronal planes. IV contrast was not administered for this examination. A dose lower ing technique was utilized adhering to the principles of ALARA. CT DOSE: 1082.53 mGy.cm FINDINGS: The skeletal structures are well mineralized. There is no evidence of facial bone fracture. There is chronic deformity of the nasal bones. The bony orbits are intact and the orbital contents a re within normal limits. The zygomatic arches and pterygoid plates are preserved. The maxilla and man dible are intact. Degenerative change is noted in the temporomandibular joints. There are no remainin g maxillary teeth. There are no layering blood products within the paranasal sinuses. There is modera te to advanced mucosal thickening throughout the ethmoid sinuses. Mild mucosal thickening is noted wi thin the frontal, sphenoid, and maxillary sinuses. The mastoid air cells are well pneumatized. The vi sualized calvarium and upper cervical spine are maintained. Partially imaged brain parenchyma is with in normal limits. IMPRESSION: There is no evidence of acute facial bone fracture. ACT 112: Negative or not required by law. Electronically signed by: Ashu Bettencourt M.D. 10/07/2022 6:26 AM
[2022-10-07] MEDS ORDERED: ACETAMINOPHEN 325 MG TAB ONE (08:32)
--- NOTE | 2022-10-07 08:33 | History and Physical Report ---
DATE OF ADMISSION: 10/07/2022. CHIEF COMPLAINT: Seizures. HISTORY OF PRESENT ILLNESS: This 47-year-old male with past medical history significant for history of hypothyroidism, hyperlipidemia, testosterone deficiency, asthma moderate persistent, history of patent foramen ovale, gout, GERD, osteoporosis, depression with anxiety, history of multiple concussions, history of hypocortisolemia, moderate depression currently at [facility] presents with a seizure episode. The patient says he supposed to be in the snf for 1 month and is there for last 15 days. He had a history of seizures in the past,as per patient from multiple concussions. As per patient he had few seizures and the last seizure was in 2017. He used to be on Keppra. He is off of Keppra since early 2017. Since then he was seizure free as per the patient. Last night at 1:00 p.m., he was getting out from top of his bunker bed then suddenly he does not know what happened and he lost consciousness. He hit the locker, the dented it and seems to have had seizures for about 3-5 minutes and was brought in here. In the ER, initially he was postictal, but later he was back to his normal self. Initial imaging studies are unremarkable. His labs are okay. As per the ER, he has 8-10 beats of nonsustained V-tach on the monitor. Currently, resting comfortably, hemodynamically stable. Complains of pain in his right shoulder and elbow and sore all over the body from the seizures. He had a left lower chest pain which is is tender Denies any shortness of breath. When he came in, initially he was nauseous, but nausea is improved. No abdominal pain. . No biting of the tongue. He thinks he might have had slight urinary incontinence. No swelling in the legs. He is ambulating okay. He has some headache. No blurred visions, no runny nose, no cough. Appetite is okay. No difficulty swallowing. He states he chews tobacco. His last alcohol drink was in February as per the patient. Has history of polysubstance overdose requiring intubation in the past. ALLERGIES: BEE VENOM, ANIMAL DANDER, PROPOXYPHENE, COLD WATER. PAST MEDICAL HISTORY: As mentioned above. PAST SURGICAL HISTORY: Left total knee arthroplasty, EGD, nasal colonoscopy, right ACL ligament repair, repair of nasal septum. MEDICATIONS: The patient is on albuterol 2 puffs inhalation q. 4 hours p.r.n., albuterol nebulization q. 4 hours p.r.n., atorvastatin 40 mg p.o. daily, ibuprofen 400 mg p.o. b.i.d. p.r.n., levothyroxine 75 mcg p.o. daily, multivitamins 1 tablet p.o. daily, omeprazole 20 mg p.o. daily, Zoloft 100 mg p.o. daily. FAMILY HISTORY: Significant for father has arthritis, IA, hypertension; mother has emphysema, lung cancer; maternal grandmother had cancer. Paternal grandmother had cancer. SOCIAL HISTORY: , chews tobacco. Currently, not drinking. His last alcohol drink was in 02/2022 as per the patient. Denies any drug use. REVIEW OF SYSTEMS: As per HPI. Rest of the review of systems is negative. PHYSICAL EXAMINATION: GENERAL: The patient is of moderate build, not in acute distress. VITAL SIGNS: Temperature 36.7, pulse 100, respiratory rate 17, blood pressure 127/89, oxygen 93% on room air. HEENT: Extraocular muscles intact. Oral mucosa moist. NECK: He is in collar. CARDIOVASCULAR: S1 and S2 heard. Regular rate and rhythm. No murmur, no gallop. RESPIRATORY SYSTEM: Normal AP diameter. No accessory muscle use. No wheezing, no crackles. ABDOMEN: Soft, bowel sounds present, nontender, no distention. CENTRAL NERVOUS SYSTEM: Alert and oriented. Extraocular muscles intact. No facial droop. Power 5/5 in all extremities. No pronator drift. Sensation is intact. Position sense intact. EXTREMITIES: No edema, no erythema. LABORATORY DATA: WBC 6.7, hemoglobin 14, hematocrit 40.2, platelets 198. Sodium 137, potassium 3.8, chloride 103, bicarbonate 25, BUN 38, creatinine 0.7, serum glucose 101, calcium 9.5, phosphorus 3.4, magnesium 2, total bilirubin 0.4, AST 13, ALT 16, alkaline phosphatase 61. Troponin I high sensitivity less than 2.3. TSH 3. SARS-CoV-2 rapid test negative. IMAGING DATA: Chest x-ray, no acute findings. CT of the head, preliminary report, no acute findings. Chest CT preliminary report, no acute findings. Cervical spine CT, preliminary report, no acute findings. Right shoulder x-ray, no acute findings. Right elbow x-ray, no acute findings. ASSESSMENT AND PLAN: This is a 47-year-old male who is currently in snf comes with seizure episode. 1. Seizures, history of seizures in the past, last seizure was in 2017, thought it was from multiple concussions and was on Keppra. Stopped Keppra from 2018, seizure free since then. His imaging studies were okay in the ER, he was loaded with Keppra in the ER, we will continue with Keppra IV 500 mg b.i.d., IV Ativan p.r.n. for breakthrough seizures, EEG. Neurology consult. Closely monitor in tele floor. Seizure precautions. 2. Nonsustained ventricular tachycardia, questionable contributing for his seizures. We will follow in tele floor. We will keep him n.p.o. until seen by cardiology. We will get echocardiogram. Follow serial cardiac enzymes. Cardiology consult. Closely monitor. 3. History of hyperlipidemia. Continue statin. 4. History of asthma. Currently stable. Continue his home inhalers and nebs p.r.n. 5. Gastroesophageal reflux disease, continue omeprazole. 6. History of depression, continue Zoloft. 7. History of hypothyroidism, on Synthroid. 8. History of patent foramen ovale. Follow echocardiogram. 9. Gastroesophageal reflux disease, on omeprazole. 10. Hx of testosterone deficiency. On testosterone gel. Says he is not getting it since he is in snf last 15 days. Will order while he is in the hospital. 10. Deep venous thrombosis prophylaxis. Placed on heparin subcutaneous. DISPOSITION: Closely monitor in tele floor. Level 1 full code. Expect to discharge back to snf when stable. Job ID: [id number] [facility]
[2022-10-07] MEDS ORDERED: ACETAMINOPHEN 325 MG TAB PO PRN (08:51)
[2022-10-07] MEDS ORDERED: NITROGLYCERIN SL 0.4 MG/TAB TAB SL PRN (08:51)
[2022-10-07] MEDS ORDERED: POLYETHYLENE (MIRALAX) 17 GM PACK PO PRN (08:51)
[2022-10-07] MEDS ORDERED: HYDROmorphone INJ 0.5 MG/0.5 ML SYR IV PRN (08:51)
[2022-10-07] MEDS ORDERED: LORazepam 1 MG/1 ML SYR IV PRN (08:51)
[2022-10-07] MEDS ORDERED: ALBUTEROL 0.083% NEBU SOLN 3 ML VIAL INH PRN (08:51)
[2022-10-07] MEDS ORDERED: SODIUM CHLORIDE 0.9% 1000ML 1,000 ML IV SCH (08:51)
[2022-10-07] MEDS ORDERED: POTASSIUM CHLORIDE 20 MEQ/15 ML UDC PO STA (08:51)
--- NOTE | 2022-10-07 09:14 | Communication Note ---
Date of Service: October 07, 2022 testosterone gel currently not ordered. thanks
[2022-10-07] MEDS ORDERED: oxyCODONE HCL IR 5 MG TAB (IMMEDIATE RELEASE) PO PRN (09:15)
[2022-10-07] MEDS ORDERED: FLUARIX QUADRIVALENT 0.5 ML SYR IM ONE (09:40)
--- NOTE | 2022-10-07 10:30 | Electrocardiogram Report ---
Test Reason : Blood Pressure : / mmHG Vent. Rate : 095 BPM Atrial Rate : 095 BPM P-R Int : 130 ms QRS Dur : 084 ms QT Int : 370 ms P-R-T Axes : 037 004 030 degrees QTc Int : 464 ms Poor data quality, interpretation may be adversely affected Normal sinus rhythm Normal ECG When compared with ECG of 28-JAN-2020 05:05, No significant change was found Confirmed by Shaun Villarreal ([id number]) on 10/07/2022 10:29:50 AM Referred By: [facility] Confirmed By:Shaun Villarreal
[2022-10-07] MEDS: PANTOprazole 40 MG TAB PO SCH (10:42)
[2022-10-07] MEDS: ATORVASTATIN 40 MG TAB PO SCH (10:42)
[2022-10-07] MEDS: FLUTICASONE/VILANTEROL 200/25MCG 14 PUFFS/INHALER INH SCH (10:43)
[2022-10-07] MEDS: HEPARIN SOD 5,000 UNIT/0.5 ML VIAL SQ SCH ×3 (10:43→21:33)
--- NOTE | 2022-10-07 10:48 | Hospitalist Progress Note ---
Date of Service October 07, 2022 Assessment & Plan (1) Seizure: Plan: He has a history of epilepsy and has been off Keppra for several years, last seizure was 6 years ago. Followed by [facility] neurology as outpatient. 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 If the patient experiences irritability and cognitive dysfunction and an alternative like lamotrigine might be considered. Patient understands all seizure restrictions including no driving. (2) V tach: Plan: Nonsustained V. tach in the ER. Patient has a history of PFO. Per cardiology no further work-up at this time. Continue to monitor on telemetry. (3) Cervical strain: Plan: Supportive care (4) Contusion of elbow, right: Plan: Supportive care (5) PFO (patent foramen ovale): Plan: Per cardiology no further work-up at this time (6) Hypothyroidism: Plan: Chronic, stable, continue levothyroxine per home regimen. (7) DVT prophylaxis: Plan: Heparin Full code Disposition-back to senior care once neurology has stabilized him on oral AEDs and cleared him for discharge. María Elena Cantrell DO [facility] hospitalist Admission and Anticipated Discharge Date Admission Date: October 07, 2022 Subjective Recently 47-year-old incarcerated man presented status post seizure episode that was witnessed. He reports no tongue biting as he is edentulous and had no teeth and and reports some urine incontinence during the episode. Reports the episode was 3 to 5 minutes long. He reports being fatigued at this time. He has no mental status issues. 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 History of epilepsy with last seizure being 6 years ago. Was taking Keppra as AED but had significant side effects.Has been loaded on Keppra this morning. Review of Systems Review of Systems: All systems were reviewed and negative except as indicated above. Physical Exam Physical Exam: CONSTITUTIONAL: WNWD, vitals as above, generally well- appearing, NAD EYES: PERRL, normal conjunctivae, no scleral icterus ENT: external ear and nose normal, MMM NECK: trachea midline, RESPIRATORY: clear to auscultation bilaterally, no crackles, rales or wheezes, normal respiratory effort CARDIOVASCULAR: regular rate and rhythm, S1 and 2 heard without murmurs, gallops or rubs, no JVD, no peripheral edema, CHEST: inspection of chest was normal GASTROINTESTINAL: soft, nontender,ND, no guarding MUSCULOSKELETAL: strength 5/5 throughout, head is normocephalic and atraumatic SKIN: warm and dry, NEUROLOGIC: CN 2-12 grossly intact, no sensory deficit, normal cognition, normal speech, no tremor PSYCHIATRIC: alert cooperative and oriented to person, place and time. Euthymic mood, makes good eye contact, language grossly intact, recent and remote memory grossly intact. Results & Data Results & [facility] ([facility]) Vital Signs (Past 12 Hours) Vital Signs Temp Pulse Pulse Resp BP BP Pulse Ox 10/07/22 09:30 100 H 10/07/22 09:30 10/07/22 09:30 38.2 C H 115 H 20 136/78 96 10/07/22 08:51 38.2 C H 115 H 20 136/78 96 10/07/22 08:51 10/07/22 07:53 106 H 16 96 10/07/22 07:03 105 H 19 128/96 94 10/07/22 06:30 101 H 18 129/92 94 10/07/22 06:15 99 H 17 106/81 93 10/07/22 06:00 93 H 23 121/82 93 10/07/22 05:59 102 H 24 119/86 92 10/07/22 05:46 110 H 21 130/91 94 10/07/22 05:30 100 H 17 127/89 93 10/07/22 05:22 93 H 22 117/78 95 10/07/22 05:00 106 H 19 94 10/07/22 04:47 92 H 16 124/91 93 10/07/22 04:31 94 H 21 97 10/07/22 04:00 89 13 91 10/07/22 03:12 87 20 93 10/07/22 02:44 93 10/07/22 03:03 36.7 C 92 H 20 128/93 94 Pulse Ox O2 Del Method O2 Del Method 10/07/22 09:30 10/07/22 09:30 Room Air 10/07/22 09:30 Room Air 10/07/22 08:51 Room Air 10/07/22 08:51 96 Room Air 10/07/22 07:53 Room Air 10/07/22 07:03 Room Air 10/07/22 06:30 10/07/22 06:15 10/07/22 06:00 10/07/22 05:59 10/07/22 05:46 10/07/22 05:30 10/07/22 05:22 10/07/22 05:00 10/07/22 04:47 10/07/22 04:31 10/07/22 04:00 10/07/22 03:12 Room Air 10/07/22 02:44 Room Air 10/07/22 03:03 Room Air Laboratory Results Short CBC 10/07/22 Range/Units 03:00 WBC 6.72 (4.8-10.8) K/ul Hgb 14.0 (14.0-18.0) g/dl Hct 40.2 (40.1-51.0) % Plt Count 198 (130-400) K/uL BMP 10/07/22 03:00 Sodium 137 Potassium 3.8 Chloride 103 Carbon Dioxide 25 BUN 8 Creatinine 0.76 Glucose 101 H Calcium 9.5 Liver Function 10/07/22 Range/Units 03:00 Total Bilirubin 0.4 (0.2-1.0) mg/dl AST 13 (13-39) U/L ALT 16 (7-52) U/L Alkaline Phosphatase 61 (34-104) U/L Albumin 4.4 (3.4-5.0) gm/dl Diagnostic Findings Elbow X-Ray 10/07/22 03:11 RIGHT ELBOW 3 VIEWS CLINICAL HISTORY: Right elbow injury. Fall. FINDINGS: 3 views of the right elbow are compared to study dated 03/28/2019. The skeletal structures are well mineralized. No fracture is seen. There is no joint effusion. The joint spaces are maintained. Mild dorsal soft tissue edema is noted. IMPRESSION: No acute bony abnormality. Electronically signed by: Ashu Bettencourt M.D. 10/07/2022 5:36 AM Shoulder X-Ray 10/07/22 03:11 RIGHT SHOULDER 3 VIEWS FINDINGS: Fall. Seizure. FINDINGS: 3 views of the right shoulder are obtained. No prior studies are available for comparison at the time of dictation. The skeletal structures are well-mineralized. There is no radiographic evidence of acute fracture or dislocation. There is chronic posttraumatic deformity of the distal clavicle. The glenohumeral articulation is maintained. Minimal degenerative change is noted at the acromioclavicular joint. The overlying soft tissues are within normal limits. The imaged right lung parenchyma appears clear. IMPRESSION: No acute bony abnormality is identified. Electronically signed by: Ashu Bettencourt M.D. 10/07/2022 6:[address] 10/07/22 03:12 CT SCAN OF THE CERVICAL SPINE CLINICAL HISTORY: Seizure. Trauma. COMPARISON STUDY: CT of the cervical spine dated 02/24/2017. TECHNIQUE: CT scan of the cervical spine is performed from the skull base to the upper thoracic spine. Images are reviewed in the axial, sagittal, and coronal planes. IV contrast was not administered for this examination. A dose lowering technique was utilized adhering to the principles of ALARA. FINDINGS: Skeletal structures: The skeletal structures are well mineralized. There is no evidence of fracture or subluxation involving the cervical spine. Vertebral body height and alignment are maintained. There is straightening of cervical lordosis. Anterior osteophytes are seen throughout. The odontoid process and lateral masses are intact. The atlantoaxial articulation is preserved noting productive degenerative change. The spinous processes appear intact. Mild facet arthropathy is noted. Intervertebral discs: There is moderate disc space narrowing at C3-C4 and C4-C5. Mild disc space narrowing is seen at the remaining cervical levels. Central canal: Posterior disc osteophyte complexes at C3-C4 and C4-C5 may contribute to mild acquired compromise of the central canal. Soft tissues: The prevertebral and paraspinous soft tissues are within normal limits. Calvarium: The visualized calvarium at the skull base appears intact. Brain parenchyma: Partially visualized brain parenchyma at the skull base is within normal limits. Sinuses and mastoids: Mucosal thickening is noted in the ethmoid, sphenoid, and maxillary sinuses. The mastoid air cells are well pneumatized. Lung apices: Clear as visualized. IMPRESSION: There is no evidence of fracture or subluxation involving the cervical spine. ACT 112: Negative or not required by law. Electronically signed by: Ashu Bettencourt M.D. 10/07/2022 6:[address] 10/07/22 03:12 CT SCAN OF THE FACIAL BONES WITHOUT IV CONTRAST CLINICAL HISTORY: Trauma. Seizure. Facial injury. COMPARISON STUDY: CT scans of the brain performed concurrently on 10/07/2022 and 02/24/2017. TECHNIQUE: High-resolution CT scan of the facial bones is performed. Images are reviewed in the axial, sagittal, and coronal planes. IV contrast was not administered for this examination. A dose lowering technique was utilized adhering to the principles of ALARA. CT DOSE: 1082.53 mGy.cm FINDINGS: The skeletal structures are well mineralized. There is no evidence of facial bone fracture. There is chronic deformity of the nasal bones. The bony orbits are intact and the orbital contents are within normal limits. The zygomatic arches and pterygoid plates are preserved. The maxilla and mandible are intact. Degenerative change is noted in the temporomandibular joints. There are no remaining maxillary teeth. There are no layering blood products within the paranasal sinuses. There is moderate to advanced mucosal thickening throughout the ethmoid sinuses. Mild mucosal thickening is noted within the frontal, sphenoid, and maxillary sinuses. The mastoid air cells are well pneum atized. The visualized calvarium and upper cervical spine are maintained. Partially imaged brain parenchyma is within normal limits. IMPRESSION: There is no evidence of acute facial bone fracture. ACT 112: Negative or not required by law. Electronically signed by: Ashu Bettencourt M.D. 10/07/2022 6:[address] 10/07/22 03:12 CT SCAN OF THE BRAIN WITHOUT IV CONTRAST CLINICAL HISTORY: Seizure. Trauma. COMPARISON STUDY: CT of the brain dated 02/24/2017. TECHNIQUE: Unenhanced axial CT scan of the brain is performed from the vertex to the skull base. A dose lowering technique was utilized adhering to the principles of ALARA. FINDINGS: Brain parenchyma: The brain parenchyma is normal in appearance. There is no hemorrhage, mass effect, or evidence of acute territorial ischemia by CT criteria. Regan-white matter differentiation is preserved. No extra-axial fluid collection is seen. Ventricles, sulci, cisterns: Normal in configuration. Intracranial vasculature: The visualized intracranial vasculature at the skull base is normal in appearance. Calvarium: There is no depressed calvarial fracture. Sinuses and mastoids: There is moderate to advanced mucosal thickening within the ethmoid sinuses. Mild mucosal thickening is noted within the frontal, sphenoid, and maxillary sinuses. The mastoid air cells are well pneumatized. Orbits: The bony orbits are grossly intact. IMPRESSION: No acute intracranial abnormality. ACT 112: Negative or not required by law. Electronically signed by: Ashu Bettencourt M.D. 10/07/2022 6:22 AM Chest X-Ray 10/07/22 04:34 SINGLE VIEW CHEST CLINICAL HISTORY: Atypical chest pain. Seizure. FINDINGS: An AP, portable, upright chest radiograph is compared to study dated 01/28/2020. Correlation is made with chest CT dated 09/01/2016. The cardiomediastinal silhouette is unremarkable. The lungs and pleural spaces are clear noting bibasilar scarring/atelectasis. No pneumothorax is seen. The bony thorax is grossly intact. IMPRESSION: No acute cardiopulmonary abnormality. ACT 112: Negative or not required by law. Electronically signed by: Ashu Bettencourt M.D. 10/07/2022 6:09 AM Medications Administered Current Inpatient Medications Acetaminophen (Acetaminophen 325 Mg Tab) 650 mg PO Q4H PRN PRN Reason: Pain or Fever Stop: 11/06/22 08:50 Albuterol (Albuterol Hfa 8 Gm Inhaler) 2 puffs INH Q4R PRN PRN Reason: cough,sob,wheeze Stop: 11/06/22 08:50 Albuterol (Albuterol 0.083% Nebu Soln 3 Ml Vial) 2.5 mg INH QIDR PRN; Protocol PRN Reason: Shortness Of Breath Or Wheezing Stop: 11/06/22 08:50 Atorvastatin Calcium (Atorvastatin 40 Mg Tab) 40 mg PO DAILY LAKSHMI Stop: 11/06/22 08:59 Fluticasone/Vilanterol (Fluticasone/Vilanterol 200/25mcg 14 Puffs/Inhaler) 1 puffs INH DAILY LAKSHMI; Protocol Stop: 11/07/22 08:59 Heparin Sodium (Porcine) (Heparin Sod 5,000 Unit/0.5 Ml Vial) 5,000 units SQ Q8 LAKSHMI Stop: 11/06/22 08:50 Hydromorphone HCl (Hydromorphone Inj 0.5 Mg/0.5 Ml Syr) 0.5 mg IV Q4H PRN PRN Reason: Pain Stop: 10/21/22 08:50 Sodium Chloride (Nss 1000ml) 1,000 mls @ 125 mls/hr IV .Q8H LAKSHMI Stop: 10/07/22 16:50 Last Admin: 10/07/22 09:08 Dose: 125 mls/hr Levetiracetam 500 mg/ Sodium (Chloride) 105 mls @ 420 mls/hr IV Q12H LAKSHMI Stop: 11/06/22 16:59 Levothyroxine Sodium (Levothyroxine Sodium 75 Mcg Tablet) 75 mcg PO DAILYBB [facility] Stop: 11/06/22 08:59 Lorazepam (Lorazepam 1 Mg/1 Ml Syr) 1.5 mg IV Q2H PRN; Protocol PRN Reason: Breakthrough Seizures Stop: 11/06/22 08:50 Multivitamins (Multivitamin Tab) 1 tab PO DAILY LAKSHMI Stop: 11/07/22 08:59 Nitroglycerin (Nitroglycerin Sl 0.4 Mg/Tab Tab) 0.4 mg SL UD PRN PRN Reason: Chest Pain Stop: 11/06/22 08:50 Oxycodone HCl (Oxycodone Hcl Ir 5 Mg Tab (Immediate Release)) 5 mg PO Q4H PRN PRN Reason: Pain Stop: 10/21/22 09:14 Pantoprazole Sodium (Pantoprazole 40 Mg Tab) 40 mg PO DAILY LAKSHMI; Protocol Stop: 11/06/22 08:59 Polyethylene Glycol (Polyethylene (Miralax) 17 Gm Pack) 17 gm PO DAILY PRN PRN Reason: Constipation Stop: 11/06/22 08:50 Sertraline HCl (Sertraline Hcl 100 Mg Tablet) 100 mg PO DAILY LAKSHMI Stop: 11/06/22 08:59 (1) Cervical strain Encounter type: initial encounter Qualified Code(s): S16.1XXA - Strain of muscle, fascia and tendon at neck level, initial encounter (2) Contusion of elbow, right Encounter type: initial encounter Qualified Code(s): S50.01XA - Contusion of right elbow, initial encounter
[2022-10-07] MEDS: SERTRALINE HCL 100 MG TABLET PO SCH (10:59)
[2022-10-07] MEDS: LEVOTHYROXINE SODIUM 75 MCG TABLET PO SCH (10:59)
[2022-10-07] MEDS ORDERED: KETOROLAC TROMETHAMINE 15 MG/ML VIAL IV PRN (12:32)
--- NOTE | 2022-10-07 12:56 | Cardiology Consultation ---
Date of Consultation October 07, 2022 Assessment & Plan (1) Seizure: (2) PFO (patent foramen ovale): Plan From a cardiac standpoint I do not believe any additional work-up is indicated. He can be discharged back to shelter per the hospitalist and neurology. History of Present Illness Attending Physician: María Elena Cantrell, History of Present Illness This is a 47-year-old male patient with a known seizure disorder and has been off his Keppra for several years. He is currently incarcerated and while at the shelter he had a seizure. He has been admitted to the hospital and restarted on Keppra. He had an echocardiogram completed in 2017 which revealed a nonclinically significant PFO. Repeat echocardiogram this admission has not changed. On the telemetry he has been maintaining sinus rhythm. He has no ongoing cardiac complaints. Allergies Allergy/AdvReac Type Severity Reaction Status Date / Time bee venom protein (honey bee) Allergy Severe Anaphylaxis Verified 10/07/22 03:03 animal dander Allergy Intermediate ITCHING Verified 10/07/22 03:03 EYES, SNEEZING, propoxyphene Allergy Unknown ON [facility] MED Verified 10/07/22 03:03 LIST COLD WATER AdvReac Intermediate HIVES Uncoded 10/07/22 03:03 Home Medications Medication Instructions Recorded Confirmed Type albuterol sulfate 90 mcg/actuation 2 puff inhalation Q4 PRN 09/10/18 10/07/22 History aerosol inhaler cough,sob,wheeze sertraline 100 mg tablet 100 mg PO DAILY 01/28/20 10/07/22 History albuterol sulfate 2.5 mg/3 mL 2.5 mg inhalation QID PRN 10/07/22 10/07/22 History (0.083 %) solution for nebulization Shortness Of Breath Or Wheezing atorvastatin 40 mg tablet 40 mg PO DAILY 10/07/22 10/07/22 History fluticasone 250 mcg-salmeterol 50 1 inh inhalation BID 10/07/22 10/07/22 History mcg/dose blistr powdr for inhalation (Wixela Inhub) ibuprofen 400 mg tablet 400 mg PO BID PRN Pain 10/07/22 10/07/22 History levothyroxine 75 mcg tablet 75 mcg PO DAILY 10/07/22 10/07/22 History multivitamin 1 tab PO DAILY 10/07/22 10/07/22 History omeprazole 20 mg tablet,delayed 20 mg PO DAILY 10/07/22 10/07/22 History release Patient History Medical History (Updated 10/07/22 @ 12:58 by Harish Morales DO) Allergic rhinitis Asthma, moderate persistent Cervical strain Closed head injury Compression fracture of spine Concussion Depression Prior SI, per no prior suicide attempts Fall GERD (gastroesophageal reflux disease) Scalp laceration Scoliosis Tobacco use disorder Surgical History History of nasal septoplasty "Dr Coelho (CN), [place], [place] 04/2004" History of repair of anterior cruciate ligament of left knee " L ACL 1997" Hx of total knee arthroplasty "L knee 11/2014" Family History Other Coronary heart disease Social History Smoking Status: Former smoker Tobacco Type: Smokeless Tobacco (Dip or Chew) Second Hand Exposure: No; Do You Dip or Chew Tobacco: Yes; Hx Alcohol Use: Yes Alcohol type: beer Hx Substance Use: No (denies) Preferred Language: Kiswahili Communication Ability: Effective Visual Impairment: No Limitations 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 All other 10 point review of systems are negative. Physical Exam Physical Exam: General: no acute distress and stated age Head: normocephalic, no masses, lesions, tenderness or abnormalities Eyes: conjunctiva are pink and non-injected, sclera clear Neck: supple, no adenopathy, no bruits, normal jugular venous pulse, no hepatojugular reflux Chest: normal shape and normal respiratory effort Lungs: clear to auscultation and percussion Cardiac Exam: - regular rate & rhythm, no murmurs gallops or rubs - normal S1, normal S2 Pulses: 2(+) throughout Abdomen: abdomen soft, non-tender, no abnormal masses and no hepatosplenomegaly Musculoskeletal: no gait disturbance, no joint inflammation, no deforming arthritis Extremities: no edema and no cyanosis Neuro: grossly normal exam Results & Data ([facility]) Vital Signs (Past 12 Hours) Vital Signs Temp Pulse Pulse Resp BP BP Pulse Ox 10/07/22 11:15 37 C 105 H 18 117/84 93 10/07/22 09:30 100 H 10/07/22 09:30 10/07/22 09:30 38.2 C H 115 H 20 136/78 96 10/07/22 08:51 38.2 C H 115 H 20 136/78 96 10/07/22 08:51 10/07/22 07:53 106 H 16 96 10/07/22 07:03 105 H 19 128/96 94 10/07/22 06:30 101 H 18 129/92 94 10/07/22 06:15 99 H 17 106/81 93 10/07/22 06:00 93 H 23 121/82 93 10/07/22 05:59 102 H 24 119/86 92 10/07/22 05:46 110 H 21 130/91 94 10/07/22 05:30 100 H 17 127/89 93 10/07/22 05:22 93 H 22 117/78 95 10/07/22 05:00 106 H 19 94 10/07/22 04:47 92 H 16 124/91 93 10/07/22 04:31 94 H 21 97 10/07/22 04:00 89 13 91 10/07/22 03:12 87 20 93 10/07/22 02:44 93 10/07/22 03:03 36.7 C 92 H 20 128/93 94 Pulse Ox O2 Del Method O2 Del Method 10/07/22 11:15 Room Air 10/07/22 09:30 10/07/22 09:30 Room Air 10/07/22 09:30 Room Air 10/07/22 08:51 Room Air 10/07/22 08:51 96 Room Air 10/07/22 07:53 Room Air 10/07/22 07:03 Room Air 10/07/22 06:30 10/07/22 06:15 10/07/22 06:00 10/07/22 05:59 10/07/22 05:46 10/07/22 05:30 10/07/22 05:22 10/07/22 05:00 10/07/22 04:47 10/07/22 04:31 10/07/22 04:00 10/07/22 03:12 Room Air 10/07/22 02:44 Room Air 10/07/22 03:03 Room Air Laboratory Results Laboratory Results - last 24 hr 10/07/22 10/07/22 10/07/22 03:00 03:00 03:00 WBC 6.72 RBC 4.69 Hgb 14.0 Hct 40.2 MCV 85.7 MCH 29.9 MCHC 34.8 RDW Std Deviation 40.3 RDW Coeff of Ingris 13.0 Plt Count 198 MPV 9.5 Immature Gran % (Auto) 0.3 Neut % (Auto) 76.4 Lymph % (Auto) 11.0 Sauk % (Auto) 11.0 Eos % (Auto) 0.7 Baso % (Auto) 0.6 Neut # (Auto) 5.13 Lymph # (Auto) 0.74 L [place] # (Auto) 0.74 Eos # (Auto) 0.05 Baso # (Auto) 0.04 Immature Gran # (Auto) 0.02 Sodium 137 Potassium 3.8 Chloride 103 Carbon Dioxide 25 Anion Gap 9 BUN 8 Creatinine 0.76 Est Cr Clr Drug Dosing 130.8 Est GFR ( Amer) 125.9 Est GFR (Non-Af Amer) 108.6 BUN/Creatinine Ratio 10.5 Glucose 101 H Calcium 9.5 Phosphorus Magnesium Total Bilirubin 0.4 AST 13 ALT 16 Alkaline Phosphatase 61 Troponin I High Sens < 2.3 Total Protein 6.9 Albumin 4.4 Globulin 2.5 Albumin/Globulin Ratio 1.8 TSH Nasal Screen MRSA (PCR) SARS-CoV-2, RNA, NAAT 10/07/22 10/07/22 10/07/22 05:01 05:01 05:01 WBC RBC Hgb Hct MCV MCH MCHC RDW Std Deviation RDW Coeff of Ingris Plt Count MPV Immature Gran % (Auto) Neut % (Auto) Lymph % (Auto) Sauk % (Auto) Eos % (Auto) Baso % (Auto) Neut # (Auto) Lymph # (Auto) Sauk # (Auto) Eos # (Auto) Baso # (Auto) Immature Gran # (Auto) Sodium Potassium Chloride Carbon Dioxide Anion Gap BUN Creatinine Est Cr Clr Drug Dosing Est GFR ( Amer) Est GFR (Non-Af Amer) BUN/Creatinine Ratio Glucose Calcium Phosphorus 3.4 Magnesium 2.0 Total Bilirubin AST ALT Alkaline Phosphatase Troponin I High Sens Total Protein Albumin Globulin Albumin/Globulin Ratio TSH 3.013 Nasal Screen MRSA (PCR) SARS-CoV-2, RNA, NAAT NEGATIVE 10/07/22 10/07/22 08:59 09:45 WBC RBC Hgb Hct MCV MCH MCHC RDW Std Deviation RDW Coeff of Ingris Plt Count MPV Immature Gran % (Auto) Neut % (Auto) Lymph % (Auto) Sauk % (Auto) Eos % (Auto) Baso % (Auto) Neut # (Auto) Lymph # (Auto) [place] # (Auto) Eos # (Auto) Baso # (Auto) Immature Gran # (Auto) Sodium Potassium Chloride Carbon Dioxide Anion Gap BUN Creatinine Est Cr Clr Drug Dosing Est GFR ( Amer) Est GFR (Non-Af Amer) BUN/Creatinine Ratio Glucose Calcium Phosphorus Magnesium Total Bilirubin AST ALT Alkaline Phosphatase Troponin I High Sens 2.7 Total Protein Albumin Globulin Albumin/Globulin Ratio TSH Nasal Screen MRSA (PCR) Negative SARS-CoV-2, RNA, NAAT Medications Administered Current Inpatient Medications Acetaminophen (Acetaminophen 500 Mg Tab) 1,000 mg PO Q8H LAKSHMI Stop: 11/06/22 14:59 Albuterol (Albuterol Hfa 8 Gm Inhaler) 2 puffs INH Q4R PRN PRN Reason: cough,sob,wheeze Stop: 11/06/22 08:50 Atorvastatin Calcium (Atorvastatin 40 Mg Tab) 40 mg PO DAILY LAKSHMI Stop: 11/06/22 08:59 Last Admin: 10/07/22 10:42 Dose: 40 mg Fluticasone/Vilanterol (Fluticasone/Vilanterol 200/25mcg 14 Puffs/Inhaler) 1 puffs INH DAILY LAKSHMI; Protocol Stop: 11/07/22 08:59 Last Admin: 10/07/22 10:43 Dose: 1 puffs Heparin Sodium (Porcine) (Heparin Sod 5,000 Unit/0.5 Ml Vial) 5,000 units SQ Q8 LAKSHMI Stop: 11/06/22 08:50 Last Admin: 10/07/22 10:43 Dose: 5,000 units Sodium Chloride (Nss 1000ml) 1,000 mls @ 125 mls/hr IV .Q8H LAKSHMI Stop: 10/07/22 16:50 Last Admin: 10/07/22 09:08 Dose: 125 mls/hr Levetiracetam 500 mg/ Sodium (Chloride) 105 mls @ 420 mls/hr IV Q12H LAKSHMI Stop: 11/06/22 16:59 Ketorolac Tromethamine (Ketorolac Tromethamine 15 Mg/Ml Vial) 15 mg IV Q6H PRN PRN Reason: Pain not controlled by Tylenol Stop: 10/12/22 12:31 Levothyroxine Sodium (Levothyroxine Sodium 75 Mcg Tablet) 75 mcg PO DAILYBB LAKSHMI Stop: 11/06/22 08:59 Last Admin: 10/07/22 10:59 Dose: 75 mcg Lorazepam (Lorazepam 1 Mg/1 Ml Syr) 1.5 mg IV Q2H PRN; Protocol PRN Reason: Breakthrough Seizures Stop: 11/06/22 08:50 Multivitamins (Multivitamin Tab) 1 tab PO DAILY LAKSHMI Stop: 11/07/22 08:59 Nitroglycerin (Nitroglycerin Sl 0.4 Mg/Tab Tab) 0.4 mg SL UD PRN PRN Reason: Chest Pain Stop: 11/06/22 08:50 Pantoprazole Sodium (Pantoprazole 40 Mg Tab) 40 mg PO DAILY LAKSHMI; Protocol Stop: 11/06/22 08:59 Last Admin: 10/07/22 10:42 Dose: 40 mg Polyethylene Glycol (Polyethylene (Miralax) 17 Gm Pack) 17 gm PO DAILY PRN PRN Reason: Constipation Stop: 11/06/22 08:50 Sertraline HCl (Sertraline Hcl 100 Mg Tablet) 100 mg PO DAILY LAKSHMI Stop: 11/06/22 08:59 Last Admin: 10/07/22 10:59 Dose: 100 mg Sodium Chloride (Sodium Chloride 0.65% Na Soln 45 Ml ([place])) 2 sprays KERRI BID LAKSHMI Stop: 11/06/22 12:44
[2022-10-07] MEDS ORDERED: COUGH DROP (SUGAR FREE) LOZ 24 LOZ/1 BOX BUCCAL ONE (14:50)
[2022-10-07] MEDS: SODIUM CHLORIDE 0.65% NA SOLN 45 ML (OCEAN) NAE SCH ×2 (15:41→21:33)
--- NOTE | 2022-10-07 15:47 | Neurology Consultation ---
Date of Consultation October 07, 2022 Assessment & Plan (1) Seizure disorder: Impression: The patient was having recurrent generalized seizures for couple years from 2016 till 2017. Work-up was negative, and multiple head concussions was considered the cause of his seizures. He has been off of antiepileptic treatment since 2018. He had another generalized seizure yesterday. Recommendations: We will start patient on Keppra 500 mg twice a day. If the patient experience irritability and cognitive dysfunction, then alternative treatment like lamotrigine might be considered as an alternative. Seizure precautions are fully explained to the patient. The patient understood that he should not drive motor vehicles until getting clearance from neurology clinic. Patient is neurologically stable and can be discharged home in next 24 hours, if he stays seizure-free. Follow-up with neurology clinic. I will contact with Dr. Milian's office, to set up a follow-up appointment. (2) Pancreatitis: (3) Polysubstance overdose: Impression: The patient reports that he has not been drinking alcoholic beverages for many months and any other illicit drugs for years. (4) PFO (patent foramen ovale): Plan Thank you for the consultation. History of Present Illness Reason for Consultation: Seizure Requesting Physician: María Elena Cantrell DO Attending Physician: María Elena Cantrell DO History of Present Illness The patient is a 47-year-old male, with history of seizure disorder, who was brought to emergency department after having a generalized tonic-clonic seizure activity, with loss of consciousness and head concussion, from [facility]. He reports that he began having recurrent, generalized seizures in 2016. He was told that the cause old seizures was multiple head concussions. The patient was treated on Keppra. His last seizure activity was in 2017. He is off of Keppra since early 2018. He denies having any seizure or seizure-like activities since he stopped using Keppra. The patient reports that he was having irritability and cognitive side effects while he was on Keppra. He has not been using alcohol or other illicit drugs for last many months. There was no unusual situation prior to seizure. He fell down with face down, and hit his head. In emergency department, head CT, facial CT, and cervical CT studies did not show any acute pathology including fractures. The patient was loaded with IV levetiracetam. Since admission, the patient has been seizure-free but complains of old whole body muscle aches. The patient had short lasting nonsustained ventricular tachycardia. He also has history of patent foramen ovale. He was seen by cardiology. There is no echocardiogram finding to suggest cardiomyopathy, with patent foramen ovale, which has been unchanged. Cardiology did not concern any cardiac etiology at this time. I have reviewed the patient's chart including imaging studies and visualized them personally. I have discussed the case with the patient and answer his questions in detail. Allergies Allergy/AdvReac Type Severity Reaction Status Date / Time bee venom protein (honey bee) Allergy Severe Anaphylaxis Verified 10/07/22 03:03 animal dander Allergy Intermediate ITCHING Verified 10/07/22 03:03 EYES, SNEEZING, propoxyphene Allergy Unknown ON [facility] Verified 10/07/22 03:03 LIST COLD WATER AdvReac Intermediate HIVES Uncoded 10/07/22 03:03 Home Medications Medication Instructions Recorded Confirmed Type albuterol sulfate 90 mcg/actuation 2 puff inhalation Q4 PRN 09/10/18 10/07/22 History aerosol inhaler cough,sob,wheeze sertraline 100 mg tablet 100 mg PO DAILY 01/28/20 10/07/22 History albuterol sulfate 2.5 mg/3 mL 2.5 mg inhalation QID PRN 10/07/22 10/07/22 History (0.083 %) solution for nebulization Shortness Of Breath Or Wheezing atorvastatin 40 mg tablet 40 mg PO DAILY 10/07/22 10/07/22 History fluticasone 250 mcg-salmeterol 50 1 inh inhalation BID 10/07/22 10/07/22 History mcg/dose blistr powdr for inhalation (Wixela Inhub) ibuprofen 400 mg tablet 400 mg PO BID PRN Pain 10/07/22 10/07/22 History levothyroxine 75 mcg tablet 75 mcg PO DAILY 10/07/22 10/07/22 History multivitamin 1 tab PO DAILY 10/07/22 10/07/22 History omeprazole 20 mg tablet,delayed 20 mg PO DAILY 10/07/22 10/07/22 History release Patient History Medical History (Updated 10/07/22 @ 16:30 by Obed Ca MD) Allergic rhinitis Asthma, moderate persistent Cervical strain Closed head injury Compression fracture of spine Concussion Depression Prior SI, per no prior suicide attempts Fall GERD (gastroesophageal reflux disease) Scalp laceration Scoliosis Tobacco use disorder Surgical History History of nasal septoplasty "Dr Coelho ([facility]), [facility] [place], [place], [place] 04/2004" History of repair of anterior cruciate ligament of left knee " L ACL 1997" Hx of total knee arthroplasty "L knee 11/2014" Family History Other Coronary heart disease Social History Smoking Status: Former smoker Tobacco Type: Smokeless Tobacco (Dip or Chew) Second Hand Exposure: No; Do You Dip or Chew Tobacco: Yes; Hx Alcohol Use: Yes Alcohol type: beer Hx Substance Use: No (denies) Preferred Language: Cameroonian Communication Ability: Effective Visual Impairment: No Limitations Die Maintenance Required: No Beliefs That Will Affect Care: None marital status: Current Living Situation: Other Current Living Situation Comment: [facility] current occupational status: employed Other Information That Helps Us Care for You: No Feels Safe at Home: Yes Safety Concerns: Feels Safe At This Time Assistive Devices: None Review of Systems Review of Systems: All systems reviewed & are unremarkable except as noted in HPI & below Physical Exam Physical Exam: General Examination: Constitutional: Well developed person in no acute distress. HENT: Normal exam with inspection. CV: Hearth rhythm is regular. Neck: Supple, no carotid bruits. Lungs: Non-labored and comfortable breathing. Abdomen: Soft, non-tender, non-distended. Skin: No rash or ecchymosis. Extremities: No edema or cyanosis NEUROLOGICAL EXAMINATION: Mental Status: Alert and oriented to place, person and time. Cranial Nerves: II-XII are intact. No nystagmus. Funduscopy: Normal looking optic discs. Motor: 5/5 in all extremities without asymmetry. Tone: Normal without spasticity or rigidity. Sensory: Intact to all sensory modalities. Coordination: No dysmetria with FTN testing. Speech: Fluent. Comprehension is intact. Gait: Normal. No ataxia or abnormal walking pattern. Musculoskeletal: Normal muscle bulk, no atrophy. Results & Data ([facility]) Vital Signs (Past 12 Hours) Vital Signs Temp Pulse Pulse Resp BP BP Pulse Ox 10/07/22 15:23 89 10/07/22 11:15 37 C 105 H 18 117/84 93 10/07/22 09:30 100 H 10/07/22 09:30 10/07/22 09:30 38.2 C H 115 H 20 136/78 96 10/07/22 08:51 38.2 C H 115 H 20 136/78 96 10/07/22 08:51 10/07/22 07:53 106 H 16 96 10/07/22 07:03 105 H 19 128/96 94 10/07/22 06:30 101 H 18 129/92 94 10/07/22 06:15 99 H 17 106/81 93 10/07/22 06:00 93 H 23 121/82 93 10/07/22 05:59 102 H 24 119/86 92 10/07/22 05:46 110 H 21 130/91 94 10/07/22 05:30 100 H 17 127/89 93 10/07/22 05:22 93 H 22 117/78 95 10/07/22 05:00 106 H 19 94 10/07/22 04:47 92 H 16 124/91 93 10/07/22 04:31 94 H 21 97 10/07/22 04:00 89 13 91 Pulse Ox O2 Del Method O2 Del Method 10/07/22 15:23 10/07/22 11:15 Room Air 10/07/22 09:30 10/07/22 09:30 Room Air 10/07/22 09:30 Room Air 10/07/22 08:51 Room Air 10/07/22 08:51 96 Room Air 10/07/22 07:53 Room Air 10/07/22 07:03 Room Air 10/07/22 06:30 10/07/22 06:15 10/07/22 06:00 10/07/22 05:59 10/07/22 05:46 10/07/22 05:30 10/07/22 05:22 10/07/22 05:00 10/07/22 04:47 10/07/22 04:31 10/07/22 04:00 Laboratory Results Laboratory Results - last 24 hr 10/07/22 10/07/22 10/07/22 03:00 03:00 03:00 WBC 6.72 RBC 4.69 Hgb 14.0 Hct 40.2 MCV 85.7 MCH 29.9 MCHC 34.8 RDW Std Deviation 40.3 RDW Coeff of Ingris 13.0 Plt Count 198 MPV 9.5 Immature Gran % (Auto) 0.3 Neut % (Auto) 76.4 Lymph % (Auto) 11.0 [place] % (Auto) 11.0 Eos % (Auto) 0.7 Baso % (Auto) 0.6 Neut # (Auto) 5.13 Lymph # (Auto) 0.74 L [place] # (Auto) 0.74 Eos # (Auto) 0.05 Baso # (Auto) 0.04 Immature Gran # (Auto) 0.02 Sodium 137 Potassium 3.8 Chloride 103 Carbon Dioxide 25 Anion Gap 9 BUN 8 Creatinine 0.76 Est Cr Clr Drug Dosing 130.8 Est GFR ( Amer) 125.9 Est GFR (Non-Af Amer) 108.6 BUN/Creatinine Ratio 10.5 Glucose 101 H Calcium 9.5 Phosphorus Magnesium Total Bilirubin 0.4 AST 13 ALT 16 Alkaline Phosphatase 61 Troponin I High Sens < 2.3 Total Protein 6.9 Albumin 4.4 Globulin 2.5 Albumin/Globulin Ratio 1.8 TSH Nasal Screen MRSA (PCR) SARS-CoV-2, RNA, NAAT 10/07/22 10/07/22 10/07/22 05:01 05:01 05:01 WBC RBC Hgb Hct MCV MCH MCHC RDW Std Deviation RDW Coeff of Ingris Plt Count MPV Immature Gran % (Auto) Neut % (Auto) Lymph % (Auto) [place] % (Auto) Eos % (Auto) Baso % (Auto) Neut # (Auto) Lymph # (Auto) [place] # (Auto) Eos # (Auto) Baso # (Auto) Immature Gran # (Auto) Sodium Potassium Chloride Carbon Dioxide Anion Gap BUN Creatinine Est Cr Clr Drug Dosing Est GFR ( Amer) Est GFR (Non-Af Amer) BUN/Creatinine Ratio Glucose Calcium Phosphorus 3.4 Magnesium 2.0 Total Bilirubin AST ALT Alkaline Phosphatase Troponin I High Sens Total Protein Albumin Globulin Albumin/Globulin Ratio TSH 3.013 Nasal Screen MRSA (PCR) SARS-CoV-2, RNA, NAAT NEGATIVE 10/07/22 10/07/22 08:59 09:45 WBC RBC Hgb Hct MCV MCH MCHC RDW Std Deviation RDW Coeff of Ingris Plt Count MPV Immature Gran % (Auto) Neut % (Auto) Lymph % (Auto) [place] % (Auto) Eos % (Auto) Baso % (Auto) Neut # (Auto) Lymph # (Auto) [place] # (Auto) Eos # (Auto) Baso # (Auto) Immature Gran # (Auto) Sodium Potassium Chloride Carbon Dioxide Anion Gap BUN Creatinine Est Cr Clr Drug Dosing Est GFR ( Amer) Est GFR (Non-Af Amer) BUN/Creatinine Ratio Glucose Calcium Phosphorus Magnesium Total Bilirubin AST ALT Alkaline Phosphatase Troponin I High Sens 2.7 Total Protein Albumin Globulin Albumin/Globulin Ratio TSH Nasal Screen MRSA (PCR) Negative SARS-CoV-2, RNA, NAAT Diagnostic Findings Elbow X-Ray 10/07/22 03:11 RIGHT ELBOW 3 VIEWS CLINICAL HISTORY: Right elbow injury. Fall. FINDINGS: 3 views of the right elbow are compared to study dated 03/28/2019. The skeletal structures are well mineralized. No fracture is seen. There is no joint effusion. The joint spaces are maintained. Mild dorsal soft tissue edema is noted. IMPRESSION: No acute bony abnormality. Electronically signed by: Ashu Bettencourt M.D. 10/07/2022 5:36 AM Shoulder X-Ray 10/07/22 03:11 RIGHT SHOULDER 3 VIEWS FINDINGS: Fall. Seizure. FINDINGS: 3 views of the right shoulder are obtained. No prior studies are available for comparison at the time of dictation. The skeletal structures are well-mineralized. There is no radiographic evidence of acute fracture or dislocation. There is chronic posttraumatic deformity of the distal clavicle. Th e glenohumeral articulation is maintained. Minimal degenerative change is noted at the acromioclavicular joint. The overlying soft tissues are within normal limits. The imaged right lung parenchyma appears clear. IMPRESSION: No acute bony abnormality is identified. Electronically signed by: Ashu Bettencourt M.D. 10/07/2022 6:[address] 10/07/22 03:12 CT SCAN OF THE CERVICAL SPINE CLINICAL HISTORY: Seizure. Trauma. COMPARISON STUDY: CT of the cervical spine dated 02/24/2017. TECHNIQUE: CT scan of the cervical spine is performed from the skull base to the upper thoracic spine. Images are reviewed in the axial, sagittal, and coronal planes. IV contrast was not administered for this examination. A dose lowering technique was utilized adhering to the principles of ALARA. FINDINGS: Skeletal structures: The skeletal structures are well mineralized. There is no evidence of fracture or subluxation involving the cervical spine. Vertebral body height and alignment are maintained. There is straightening of cervical lordosis. Anterior osteophytes are seen throughout. The odontoid process and lateral masses are intact. The atlantoaxial articulation is preserved noting productive degenerative change. The spinous processes appear intact. Mild facet arthropathy is noted. Intervertebral discs: There is moderate disc space narrowing at C3-C4 and C4-C5. Mild disc space narrowing is seen at the remaining cervical levels. Central canal: Posterior disc osteophyte complexes at C3-C4 and C4-C5 may contribute to mild acquired compromise of the central canal. Soft tissues: The prevertebral and paraspinous soft tissues are within normal limits. Calvarium: The visualized calvarium at the skull base appears intact. Brain parenchyma: Partially visualized brain parenchyma at the skull base is within normal limits. Sinuses and mastoids: Mucosal thickening is noted in the ethmoid, sphenoid, and maxillary sinuses. The mastoid air cells are well pneumatized. Lung apices: Clear as visualized. IMPRESSION: There is no evidence of fracture or subluxation involving the cervical spine. ACT 112: Negative or not required by law. Electronically signed by: Ashu Bettencourt M.D. 10/07/2022 6:[address] 10/07/22 03:12 CT SCAN OF THE FACIAL BONES WITHOUT IV CONTRAST CLINICAL HISTORY: Trauma. Seizure. Facial injury. COMPARISON STUDY: CT scans of the brain performed concurrently on 10/07/2022 and 02/24/2017. TECHNIQUE: High-resolution CT scan of the facial bones is performed. Images are reviewed in the axial, sagittal, and coronal planes. IV contrast was not administered for this examination. A dose lowering technique was utilized adhering to the principles of ALARA. CT DOSE: 1082.53 mGy.cm FINDINGS: The skeletal structures are well mineralized. There is no evidence of facial bone fracture. There is chronic deformity of the nasal bones. The bony orbits are intact and the orbital contents are within normal limits. The zygomatic arches and pterygoid plates are preserved. The maxilla and mandible are intact. Degenerative change is noted in the temporomandibular joints. There are no remaining maxillary teeth. There are no layering blood products within the paranasal sinuses. There is moderate to advanced mucosal thickening throughout the ethmoid sinuses. Mild mucosal thickening is noted within the frontal, sphenoid, and maxillary sinuses. The mastoid air cells are well pneumatized. The visualized calvarium and upper cervical spine are maintained. Partially imaged brain parenchyma is within normal limits. IMPRESSION: There is no evidence of acute facial bone fracture. ACT 112: Negative or not required by law. Electronically signed by: Ashu Bettencourt M.D. 10/07/2022 6:[address] 10/07/22 03:12 CT SCAN OF THE BRAIN WITHOUT IV CONTRAST CLINICAL HISTORY: Seizure. Trauma. COMPARISON STUDY: CT of the brain dated 02/24/2017. TECHNIQUE: Unenhanced axial CT scan of the brain is performed from the vertex to the skull base. A dose lowering technique was utilized adhering to the principles of ALARA. FINDINGS: Brain parenchyma: The brain parenchyma is normal in appearance. There is no hemorrhage, mass effect, or evidence of acute territorial ischemia by CT criteria. Regan-white matter differentiation is preserved. No extra-axial fluid collection is seen. Ventricles, sulci, cisterns: Normal in configuration. Intracranial vasculature: The visualized intracranial vasculature at the skull base is normal in appearance. Calvarium: There is no depressed calvarial fracture. Sinuses and mastoids: There is moderate to advanced mucosal thickening within the ethmoid sinuses. Mild mucosal thickening is noted within the frontal, sphenoid, and maxillary sinuses. The mastoid air cells are well pneumatized. Orbits: The bony orbits are grossly intact. IMPRESSION: No acute intracranial abnormality. ACT 112: Negative or not required by law. Electronically signed by: Ashu Bettencourt M.D. 10/07/2022 6:22 AM Chest X-Ray 10/07/22 04:34 SINGLE VIEW CHEST CLINICAL HISTORY: Atypical chest pain. Seizure. FINDINGS: An AP, portable, upright chest radiograph is compared to study dated 01/28/2020. Correlation is made with chest CT dated 09/01/2016. The cardiomediastinal silhouette is unremarkable. The lungs and pleural spaces are clear noting bibasilar scarring/atelectasis. No pneumothorax is seen. The bony thorax is grossly intact. IMPRESSION: No acute cardiopulmonary abnormality. ACT 112: Negative or not required by law. Electronically signed by: Ashu Bettencourt M.D. 10/07/2022 6:09 AM (1) Pancreatitis Chronicity: acute Pancreatitis type: unspecified pancreatitis type Acute pancreatitis complication: unspecified Qualified Code(s): K85.90 - Acute pancreatitis without necrosis or infection, unspecified (2) Polysubstance overdose Encounter type: initial encounter Injury intent: intentional self-harm Qualified Code(s): T50.902A - Poisoning by unspecified drugs, medicaments and biological substances, intentional self-harm, initial encounter
[2022-10-07] MEDS: ACETAMINOPHEN 500 MG TAB PO SCH ×2 (16:10→22:27)
[2022-10-07] MEDS: ALBUTEROL HFA 8 GM INHALER INH PRN (16:30)
[2022-10-07] MEDS: levETIRAcetam 500 MG in 0.9 % SODIUM CHLORIDE 100 ML IV SCH (17:01)
[2022-10-08] MEDS: levETIRAcetam 500 MG in 0.9 % SODIUM CHLORIDE 100 ML IV SCH (05:24)
[2022-10-08] MEDS: HEPARIN SOD 5,000 UNIT/0.5 ML VIAL SQ SCH ×3 (05:33→22:35)
[2022-10-08 05:37] LABS: Basophils # (auto) 0.03 K/uL (0-0.2); Basophils % (auto) 0.8 %; Eosinophils # (auto) 0.16 K/uL (0-0.50); Hematocrit (blood only) 38.7 % (40.1-51.0); Hemoglobin 13.1 g/dl (14.0-18.0); Immature Granulocytes # (auto) 0.01 K/uL (0.00-0.02); Immature Granulocytes % (auto) 0.3 %; Lymphocytes # (auto) 0.86 K/uL (1.2-3.4); Lymphocytes % (auto) 21.7 %; Mean Corpuscular Hemoglobin 29.9 pg (25.0-34.0); Mean Corpuscular Hgb Conc 33.9 g/dL (32.0-36.0); Mean Corpuscular Volume 88.4 fL (80.0-100.0); Mean Platelet Volume 9.3 fL (9.4-12.4); Monocytes # (auto) 0.68 K/uL (0.24-0.82); Monocytes % (auto) 17.2 %; Neutrophils # (auto) 2.22 K/uL (1.4-6.5); Platelet Count 161 K/uL (130-400); RDW Coefficient of Variation 13.1 % (11.5-14.5); RDW Standard Deviation 41.9 fL (36.4-46.3); Red Blood Count 4.38 M/uL (4.63-6.08); White Blood Count 3.96 K/ul (4.8-10.8)
[2022-10-08] MEDS: LEVOTHYROXINE SODIUM 75 MCG TABLET PO SCH (05:52)
[2022-10-08 06:06] LABS: BUN Creatinine Ratio 14.5 (10-20); Calcium 8.8 mg/dl (8.5-10.1); Creatinine Clr Calc Pharmacy 119.8 ml/min; Est GFR (African American) 121.4 ml/min; Est GFR (Non-African American) 104.8 ml/min; Magnesium 2.2 mg/dl (1.7-2.4); Potassium 4.1 mmol/L (3.5-5.1)
[2022-10-08] MEDS: ACETAMINOPHEN 500 MG TAB PO SCH ×3 (06:09→22:34)
[2022-10-08] MEDS: PANTOprazole 40 MG TAB PO SCH (08:10)
[2022-10-08] MEDS: ATORVASTATIN 40 MG TAB PO SCH (08:10)
[2022-10-08] MEDS: SERTRALINE HCL 100 MG TABLET PO SCH (08:10)
[2022-10-08] MEDS: MULTIVITAMIN TAB PO SCH (08:10)
[2022-10-08] MEDS: SODIUM CHLORIDE 0.65% NA SOLN 45 ML (OCEAN) NAE SCH ×2 (08:11→20:19)
--- NOTE | 2022-10-08 09:19 | Electrocardiogram Report ---
Test Reason : Blood Pressure : / mmHG Vent. Rate : 067 BPM Atrial Rate : 067 BPM P-R Int : 178 ms QRS Dur : 094 ms QT Int : 388 ms P-R-T Axes : 030 003 014 degrees QTc Int : 409 ms Normal sinus rhythm Normal ECG When compared with ECG of 07-OCT-2022 02:55, QT has shortened Confirmed by Shaun Villarreal ([id number]) on 10/08/2022 9:19:04 AM Referred By: [facility] Confirmed By:Shaun Villarreal
[2022-10-08] MEDS ORDERED: AZITHROMYCIN 250 MG TAB PO ONE (12:27)
[2022-10-08] MEDS: predniSONE 20 MG TAB PO SCH (13:50)
--- NOTE | 2022-10-08 14:42 | Neurology Progress Note ---
Date of Service October 08, 2022 Assessment & Plan (1) Seizure disorder: Plan: Impression: The patient was having recurrent generalized seizures for couple years from 2016 till 2017. Work-up was negative, and multiple head concussions was considered the cause of his seizures. He has been off of antiepileptic treatment since 2018. He had another generalized seizure the day before yesterday. He has been seizure free since the admission. He cannot tolerate Keppra because of cognitive dysfunction, speech disturbance. Recommendations: We will stop Keppra and will start patient on lamotrigine 25 mg twice a day for a week, then 25 mg in the morning and 50 mg in the evening for a week, then 50 mg twice a day for a week, then 50 mg in the morning and 100 mg in the evening for a week, then 100 mg twice a day until seeing outpatient neurology. We do not have lamotrigine XR in our formulary, which might be considered an option in the future. Based on the patient's medical history, and intolerance to Keppra, lamotrigine might help his depression, and might work as a mood stabilizer as well. Seizure precautions are fully explained to the patient. The patient understood that he should not drive motor vehicles until getting clearance from neurology clinic. Patient is neurologically stable and can be discharged today or tomorrow. Follow-up with neurology clinic. I will contact with Dr. Milian's office, to set up a follow-up appointment. (2) Pancreatitis: Plan: Impression: This was reported in the patient's medical history, however, the patient has no active pancreatitis. Obviously, lamotrigine might worsen pancreatitis, however, this risk is minimal. (3) Polysubstance overdose: Plan: Impression: The patient reports that he has not been drinking alcoholic beverages for many months and any other illicit drugs for years. (4) PFO (patent foramen ovale): Admission and Anticipated Discharge Date Admission Date: October 07, 2022 Subjective The patient was admitted to hospital after having generalized tonic-clonic seizure activity which cause head concussion. He has history of seizure disorder, between 2016 till 2017, which was treated on Keppra, and due to side effects and being seizure-free, he has been off of Keppra since early 2018. We tried Keppra again which caused side effects and the patient reports that he cannot tolerate this medication. After discussing other alternatives, and his past medical history, we decided to switch patient to lamotrigine. Slow titration, and precautions for skin titration is explained to the patient. He has been seizure-free since admission. Headache and muscle ache has been better. Review of Systems Review of Systems: All systems reviewed & are unremarkable except as noted in Subjective Physical Exam Physical Exam: General Examination: Constitutional: Well developed person in no acute distress. HENT: Normal exam with inspection. CV: Hearth rhythm is regular. Neck: Supple, no carotid bruits. Lungs: Non-labored and comfortable breathing. Abdomen: Soft, non-tender, non-distended. Skin: No rash or ecchymosis. Extremities: No edema or cyanosis NEUROLOGICAL EXAMINATION: Mental Status: Alert and oriented to place, person and time. Cranial Nerves: II-XII are intact. No nystagmus. Funduscopy: Normal looking optic discs. Motor: 5/5 in all extremities without asymmetry. Tone: Normal without spasticity or rigidity. Sensory: Intact to all sensory modalities. Coordination: No dysmetria with FTN testing. Speech: Fluent. Comprehension is intact. Gait: Normal. No ataxia or abnormal walking pattern. Musculoskeletal: Normal muscle bulk, no atrophy. Results & Data ([facility]) Vital Signs (Past 12 Hours) Vital Signs Temp Pulse Pulse Resp BP Pulse Ox O2 Del Method 10/08/22 11:31 37.1 C 81 18 123/70 95 Room Air 10/08/22 08:00 72 10/08/22 06:57 37 C 76 18 108/56 L 95 Room Air 10/08/22 03:47 36.8 C 67 18 103/62 94 Room Air Laboratory Results Laboratory Results - last 24 hr 10/08/22 10/08/22 05:22 05:22 WBC 3.96 L RBC 4.38 L Hgb 13.1 L Hct 38.7 L MCV 88.4 MCH 29.9 MCHC 33.9 RDW Std Deviation 41.9 RDW Coeff of Ingris 13.1 Plt Count 161 MPV 9.3 L Immature Gran % (Auto) 0.3 Neut % (Auto) 56.0 Lymph % (Auto) 21.7 [place] % (Auto) 17.2 Eos % (Auto) 4.0 Baso % (Auto) 0.8 Neut # (Auto) 2.22 Lymph # (Auto) 0.86 L [place] # (Auto) 0.68 Eos # (Auto) 0.16 Baso # (Auto) 0.03 Immature Gran # (Auto) 0.01 Sodium 139 Potassium 4.1 Chloride 106 Carbon Dioxide 29 Anion Gap 4 BUN 12 Creatinine 0.83 Est Cr Clr Drug Dosing 119.8 Est GFR ( Amer) 121.4 Est GFR (Non-Af Amer) 104.8 BUN/Creatinine Ratio 14.5 Glucose 85 Calcium 8.8 Magnesium 2.2 Diagnostic Findings Elbow X-Ray 10/07/22 03:11 RIGHT ELBOW 3 VIEWS CLINICAL HISTORY: Right elbow injury. Fall. FINDINGS: 3 views of the right elbow are compared to study dated 03/28/2019. The skeletal structures are well mineralized. No fracture is seen. There is no joint effusion. The joint spaces are maintained. Mild dorsal soft tissue edema is noted. IMPRESSION: No acute bony abnormality. Electronically signed by: Ashu Bettencourt M.D. 10/07/2022 5:36 AM Shoulder X-Ray 10/07/22 03:11 RIGHT SHOULDER 3 VIEWS FINDINGS: Fall. Seizure. FINDINGS: 3 views of the right shoulder are obtained. No prior studies are available for comparison at the time of dictation. The skeletal structures are well-mineralized. There is no radiographic evidence of acute fracture or dislocation. There is chronic posttraumatic deformity of the distal clavicle. The glenohumeral articulation is maintained. Minimal degenerative change is noted at the acromioclavicular joint. The overlying soft tissues are within normal limits. The imaged right lung parenchyma appears clear. IMPRESSION: No acute bony abnormality is identified. Electronically signed by: Ashu Bettencourt M.D. 10/07/2022 6:[address] 10/07/22 03:12 CT SCAN OF THE CERVICAL SPINE CLINICAL HISTORY: Seizure. Trauma. COMPARISON STUDY: CT of the cervical spine dated 02/24/2017. TECHNIQUE: CT scan of the cervical spine is performed from the skull base to the upper thoracic spine. Images are reviewed in the axial, sagittal, and coronal planes. IV contrast was not administered for this examination. A dose lowering technique was utilized adhering to the principles of ALARA. FINDINGS: Skeletal structures: The skeletal structures are well mineralized. There is no evidence of fracture or subluxation involving the cervical spine. Vertebral body height and alignment are maintained. There is straightening of cervical lordosis. Anterior osteophytes are seen throughout. The odontoid process and lateral masses are intact. The atlantoaxial articulation is preserved noting productive degenerative change. The spinous processes appear intact. Mild facet arthropathy is noted. Intervertebral discs: There is moderate disc space narrowing at C3-C4 and C4-C5. Mild disc space narrowing is seen at the remaining cervical levels. Central canal: Posterior disc osteophyte complexes at C3-C4 and C4-C5 may contribute to mild acquired compromise of the central canal. Soft tissues: The prevertebral and paraspinous soft tissues are within normal limits. Calvarium: The visualized calvarium at the skull base appears intact. Brain parenchyma: Partially visualized brain parenchyma at the skull base is within normal limits. Sinuses and mastoids: Mucosal thickening is noted in the ethmoid, sphenoid, and maxillary sinuses. The mastoid air cells are well pneumatized. Lung apices: Clear as visualized. IMPRESSION: There is no evidence of fracture or subluxation involving the cervical spine. ACT 112: Negative or not required by law. Electronically signed by: Ashu Bettencourt M.D. 10/07/2022 6:[address] 10/07/22 03:12 CT SCAN OF THE FACIAL BONES WITHOUT IV CONTRAST CLINICAL HISTORY: Trauma. Seizure. Facial injury. COMPARISON STUDY: CT scans of the brain performed concurrently on 10/07/2022 and 02/24/2017. TECHNIQUE: High-resolution CT scan of the facial bones is performed. Images are reviewed in the axial, sagittal, and coronal planes. IV contrast was not administered for this examination. A dose lowering technique was utilized adhering to the principles of ALARA. CT DOSE: 1082.53 mGy.cm FINDINGS: The skeletal structures are well mineralized. There is no evidence of facial bone fracture. There is chronic deformity of the nasal bones. The bony o rbits are intact and the orbital contents are within normal limits. The zygomatic arches and pterygoid plates are preserved. The maxilla and mandible are intact. Degenerative change is noted in the temporomandibular joints. There are no remaining maxillary teeth. There are no layering blood products within the paranasal sinuses. There is moderate to advanced mucosal thickening throughout the ethmoid sinuses. Mild mucosal thickening is noted within the frontal, sphenoid, and maxillary sinuses. The mastoid air cells are well pneumatized. The visualized calvarium and upper cervical spine are maintained. Partially imaged brain parenchyma is within normal limits. IMPRESSION: There is no evidence of acute facial bone fracture. ACT 112: Negative or not required by law. Electronically signed by: Ashu Bettencourt M.D. 10/07/2022 6:[address] 10/07/22 03:12 CT SCAN OF THE BRAIN WITHOUT IV CONTRAST CLINICAL HISTORY: Seizure. Trauma. COMPARISON STUDY: CT of the brain dated 02/24/2017. TECHNIQUE: Unenhanced axial CT scan of the brain is performed from the vertex to the skull base. A dose lowering technique was utilized adhering to the princip les of ALARA. FINDINGS: Brain parenchyma: The brain parenchyma is normal in appearance. There is no hemorrhage, mass effect, or evidence of acute territorial ischemia by CT criteria. Regan-white matter differentiation is preserved. No extra-axial fluid collection is seen. Ventricles, sulci, cisterns: Normal in configuration. Intracranial vasculature: The visualized intracranial vasculature at the skull base is normal in appearance. Calvarium: There is no depressed calvarial fracture. Sinuses and mastoids: There is moderate to advanced mucosal thickening within the ethmoid sinuses. Mild mucosal thickening is noted within the frontal, sphenoid, and maxillary sinuses. The mastoid air cells are well pneumatized. Orbits: The bony orbits are grossly intact. IMPRESSION: No acute intracranial abnormality. ACT 112: Negative or not required by law. Electronically signed by: Ashu Bettencourt M.D. 10/07/2022 6:22 AM Chest X-Ray 10/07/22 04:34 SINGLE VIEW CHEST CLINICAL HISTORY: Atypical chest pain. Seizure. FINDINGS: An AP, portable, upright chest radiograph is compared to study dated 01/28/2020. Correlation is made with chest CT dated 09/01/2016. The cardiomediastinal silhouette is unremarkable. The lungs and pleural spaces are clear noting bibasilar scarring/atelectasis. No pneumothorax is seen. The bony thorax is grossly intact. IMPRESSION: No acute cardiopulmonary abnormality. ACT 112: Negative or not required by law. Electronically signed by: Ashu Bettencourt M.D. 10/07/2022 6:09 AM (1) Pancreatitis Chronicity: acute Pancreatitis type: unspecified pancreatitis type Acute pancreatitis complication: unspecified Qualified Code(s): K85.90 - Acute pancreatitis without necrosis or infection, unspecified (2) Polysubstance overdose Encounter type: initial encounter Injury intent: intentional self-harm Qualified Code(s): T50.902A - Poisoning by unspecified drugs, medicaments and biological substances, intentional self-harm, initial encounter
--- NOTE | 2022-10-08 15:15 | Hospitalist Progress Note ---
Date of Service October 08, 2022 Assessment & Plan (1) Seizure: Plan: He has a history of epilepsy and has been off Keppra for several years, last seizure was 6 years ago. Followed by [facility] neurology as outpatient. Etiology of epilepsy is possible chronic traumatic encephalopathy from multiple concussions sustained during [employer] sports neurology has been consulted and is continuing with Keppra for now. If the patient experiences irritability and cognitive dysfunction and an alternative like lamotrigine might be considered. Patient understands all seizure restrictions including no driving. (2) Asthma exacerbation: Plan: Expiratory wheezing has increased today. It is likely that the patient had an aspiration event during his seizure yesterday. He now complains of a burning discomfort in his chest especially if there is a need to cough. Cough is dry and not excessive there is no fever present. Chest imaging to date has shown no evidence of pneumonia. Suspect he may have a bronchitis or asthma exacerbation. At this point scheduled albuterol nebulizers have not improved his symptoms. We will continue these and add daily prednisone and azithromycin. (3) Cervical strain: Plan: Supportive care (4) Contusion of elbow, right: Plan: Supportive care (5) PFO (patent foramen ovale): Plan: Per cardiology no further work-up at this time (6) Hypothyroidism: Plan: Chronic, stable, continue levothyroxine per home regimen. (7) DVT prophylaxis: Plan: Heparin Full code Disposition-back to care home once neurology has stabilized him on oral AEDs and cleared him for discharge. María Elena Cantrell DO [facility] Hospitalist Admission and Anticipated Discharge Date Admission Date: October 07, 2022 Subjective 47-year-old man admitted for seizure with fall He has been on Keppra since admission and is starting to experience side effects including dizziness, visual issues, irritability and fatigue. He is requesting to have an alternative. Discussed this with neurology and we decided on lamotrigine. As lamotrigine XR is not on formulary we will opt for a lamotrigine IR titration protocol. Patient also mentions continued soreness from his fall and musculoskeletal injuries including cervical strain and some in his shoulder. He has an increased amount of expiratory wheezing and continues to report some burning in his chest especially when he has any kind of cough. Scheduled albuterol nebulizers have not helped with this. He is taking nasal saline which is helping to open up his sinuses more. Not currently having a productive cough and no fevers. Pulmonary exam reveals expiratory wheezing in all veliz. He has not hypoxic. Review of Systems Review of Systems: All systems reviewed negative except as indicated above. Physical Exam Physical Exam: CONSTITUTIONAL: WNWD, vitals as above, generally well- appearing, NAD EYES: PERRL, normal conjunctivae, no scleral icterus ENT: external ear and nose normal, MMM NECK: trachea midline, RESPIRATORY: Normal respiratory effort, expiratory wheezing throughout all lung veliz. CARDIOVASCULAR: regular rate and rhythm, S1 and 2 heard without murmurs, gallops or rubs, no JVD, no peripheral edema, CHEST: inspection of chest was normal GASTROINTESTINAL: soft, nontender,ND, no guarding MUSCULOSKELETAL: strength 5/5 throughout, head is normocephalic and atraumatic SKIN: warm and dry, NEUROLOGIC: CN 2-12 grossly intact, no sensory deficit, normal cognition, normal speech, no tremor PSYCHIATRIC: alert cooperative and oriented to person, place and time. Euthy madonna mood, makes good eye contact, language grossly intact, recent and remote memory grossly intact. Results & Data Results & Data ([facility]) Vital Signs (Past 12 Hours) Vital Signs Temp Pulse Pulse Resp BP Pulse Ox O2 Del Method 10/08/22 11:31 37.1 C 81 18 123/70 95 Room Air 10/08/22 08:00 72 10/08/22 06:57 37 C 76 18 108/56 L 95 Room Air 10/08/22 03:47 36.8 C 67 18 103/62 94 Room Air Laboratory Results Short CBC 10/08/22 Range/Units 05:22 WBC 3.96 L (4.8-10.8) K/ul Hgb 13.1 L (14.0-18.0) g/dl Hct 38.7 L (40.1-51.0) % Plt Count 161 (130-400) K/uL BMP 10/08/22 05:22 Sodium 139 Potassium 4.1 Chloride 106 Carbon Dioxide 29 BUN 12 Creatinine 0.83 Glucose 85 Calcium 8.8 Medications Administered Current Inpatient Medications Acetaminophen (Acetaminophen 500 Mg Tab) 1,000 mg PO Q8H [facility] Stop: 11/06/22 14:59 Last Admin: 10/08/22 14:09 Dose: 1,000 mg Albuterol (Albuterol Hfa 8 Gm Inhaler) 2 puffs INH Q4R PRN PRN Reason: cough,sob,wheeze Stop: 11/06/22 08:50 Last Admin: 10/07/22 16:30 Dose: 2 puffs Atorvastatin Calcium (Atorvastatin 40 Mg Tab) 40 mg PO DAILY [facility] Stop: 11/06/22 08:59 Last Admin: 10/08/22 08:10 Dose: 40 mg Azithromycin (Azithromycin 250 Mg Tab) 250 mg PO QAM [facility] Stop: 10/13/22 08:59 Fluticasone/Vilanterol (Fluticasone/Vilanterol 200/25mcg 14 Puffs/Inhaler) 1 puffs INH DAILY [facility]; Protocol Stop: 11/07/22 08:59 Last Admin: 10/07/22 10:43 Dose: 1 puffs Heparin Sodium (Porcine) (Heparin Sod 5,000 Unit/0.5 Ml Vial) 5,000 units SQ Q8 [facility] Stop: 11/06/22 08:50 Last Admin: 10/08/22 13:51 Dose: Not Given Ketorolac Tromethamine (Ketorolac Tromethamine 15 Mg/Ml Vial) 15 mg IV Q6H PRN PRN Reason: Pain not controlled by Tylenol Stop: 10/12/22 12:31 Last Admin: 10/07/22 15:58 Dose: 15 mg Lamotrigine (Lamotrigine 25 Mg Tab) 25 mg PO BID [facility] Stop: 10/14/22 21:01 Levetiracetam (Levetiracetam 500 Mg Tab) 500 mg PO BID@06,18 [facility] Stop: 11/07/22 17:59 Levothyroxine Sodium (Levothyroxine Sodium 75 Mcg Tablet) 75 mcg PO DAILYBB [facility] Stop: 11/06/22 08:59 Last Admin: 10/08/22 05:52 Dose: 75 mcg Lorazepam (Lorazepam 1 Mg/1 Ml Syr) 1.5 mg IV Q2H PRN; Protocol PRN Reason: Breakthrough Seizures Stop: 11/06/22 08:50 Multivitamins (Multivitamin Tab) 1 tab PO DAILY [facility] Stop: 11/07/22 08:59 Last Admin: 10/08/22 08:10 Dose: 1 tab Nitroglycerin (Nitroglycerin Sl 0.4 Mg/Tab Tab) 0.4 mg SL UD PRN PRN Reason: Chest Pain Stop: 11/06/22 08:50 Pantoprazole Sodium (Pantoprazole 40 Mg Tab) 40 mg PO DAILY [facility]; Protocol Stop: 11/06/22 08:59 Last Admin: 10/08/22 08:10 Dose: 40 mg Polyethylene Glycol (Polyethylene (Miralax) 17 Gm Pack) 17 gm PO DAILY PRN PRN Reason: Constipation Stop: 11/06/22 08:50 Prednisone (Prednisone 20 Mg Tab) 40 mg PO DAILY [facility] Stop: 10/13/22 12:29 Last Admin: 10/08/22 13:50 Dose: 40 mg Sertraline HCl (Sertraline Hcl 100 Mg Tablet) 100 mg PO DAILY [facility] Stop: 11/06/22 08:59 Last Admin: 10/08/22 08:10 Dose: 100 mg Sodium Chloride (Sodium Chloride 0.65% Na Soln 45 Ml ([place])) 2 sprays KERRI BID [facility] Stop: 11/06/22 12:44 Last Admin: 10/08/22 08:11 Dose: 2 sprays (1) Cervical strain Encounter type: initial encounter Qualified Code(s): S16.1XXA - Strain of muscle, fascia and tendon at neck level, initial encounter (2) Contusion of elbow, right Encounter type: initial encounter Qualified Code(s): S50.01XA - Contusion of right elbow, initial encounter
[2022-10-08] MEDS: lamoTRIgine 25 MG TAB PO SCH ×2 (15:48→22:33)
[2022-10-08] MEDS: ALBUTEROL HFA 8 GM INHALER INH PRN (16:35)
[2022-10-08] MEDS ORDERED: levETIRAcetam 500 MG TAB PO SCH (18:00)
[2022-10-09] MEDS: ALBUTEROL HFA 8 GM INHALER INH PRN ×4 (01:26→19:28)
[2022-10-09] MEDS: LEVOTHYROXINE SODIUM 75 MCG TABLET PO SCH (05:40)
[2022-10-09] MEDS: HEPARIN SOD 5,000 UNIT/0.5 ML VIAL SQ SCH (05:41)
[2022-10-09] MEDS: ACETAMINOPHEN 500 MG TAB PO SCH ×3 (05:47→22:14)
--- NOTE | 2022-10-09 07:15 | Electrocardiogram Report ---
Test Reason : Blood Pressure : / mmHG Vent. Rate : 063 BPM Atrial Rate : 063 BPM P-R Int : 170 ms QRS Dur : 106 ms QT Int : 424 ms P-R-T Axes : 046 004 032 degrees QTc Int : 433 ms Normal sinus rhythm Normal ECG When compared with ECG of 08-OCT-2022 05:50, ST elevation now present in Inferior leads Confirmed by Thomas Naqvi ([id number]) on 10/09/2022 7:15:17 AM Referred By: [facility] Confirmed By:Venkat Naqvi
[2022-10-09] MEDS: lamoTRIgine 25 MG TAB PO SCH ×2 (08:11→19:32)
[2022-10-09] MEDS: predniSONE 20 MG TAB PO SCH (08:11)
[2022-10-09] MEDS: PANTOprazole 40 MG TAB PO SCH (08:11)
[2022-10-09] MEDS: SERTRALINE HCL 100 MG TABLET PO SCH (08:11)
[2022-10-09] MEDS: SODIUM CHLORIDE 0.65% NA SOLN 45 ML (OCEAN) NAE SCH ×2 (08:11→19:32)
[2022-10-09] MEDS: ATORVASTATIN 40 MG TAB PO SCH (08:12)
[2022-10-09] MEDS: MULTIVITAMIN TAB PO SCH (08:12)
[2022-10-09] MEDS: FLUTICASONE/VILANTEROL 200/25MCG 14 PUFFS/INHALER INH SCH (08:12)
[2022-10-09] MEDS: AZITHROMYCIN 250 MG TAB PO SCH (08:12)
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
--- NOTE | 2022-10-09 10:58 | XRay Report ---
SINGLE VIEW CHEST CLINICAL HISTORY: Wheezing. Pleurisy. FINDINGS: An AP, portable, upright chest radiograph is compared to study dated 10/07/2022 and correla momo with chest CT dated 09/01/2016. The cardiomediastinal silhouette is unremarkable. There is mild e levation of the left hemidiaphragm and bibasilar atelectasis. The lungs and pleural spaces are otherw ise clear. No pneumothorax is seen. The bony thorax is grossly intact. IMPRESSION: Bibasilar atelectasis with no acute cardiopulmonary abnormality. ACT 112: Negative or not required by law. Electronically signed by: Ashu Bettencourt M.D. 10/09/2022 10:57 AM
[2022-10-09] MEDS: ALBUTEROL 0.5% NEB SOLN 2.5 MG/0.5 ML VIAL NEB SCH ×3 (12:04→19:34)
[2022-10-09] MEDS: methylPREDNISolone 40 MG in SYRINGE 0 ML IV SCH ×2 (14:15→19:31)
[2022-10-09] MEDS: ENOXAPARIN INJ 40 MG/0.4 ML SYR SQ SCH (19:32)
[2022-10-10] MEDS: methylPREDNISolone 40 MG in SYRINGE 0 ML IV SCH ×3 (02:35→16:38)
[2022-10-10] MEDS: ALBUTEROL HFA 8 GM INHALER INH PRN ×4 (05:28→17:48)
[2022-10-10] MEDS: ALBUTEROL 0.5% NEB SOLN 2.5 MG/0.5 ML VIAL NEB SCH ×4 (05:41→19:58)
[2022-10-10] MEDS: LEVOTHYROXINE SODIUM 75 MCG TABLET PO SCH (06:10)
[2022-10-10 06:44] LABS: Hematocrit (blood only) 38.9 % (40.1-51.0); Hemoglobin 13.6 g/dl (14.0-18.0); Mean Corpuscular Hemoglobin 29.7 pg (25.0-34.0); Mean Corpuscular Volume 84.9 fL (80.0-100.0); Mean Platelet Volume 9.3 fL (9.4-12.4); Platelet Count 203 K/uL (130-400); RDW Coefficient of Variation 12.8 % (11.5-14.5); RDW Standard Deviation 39.2 fL (36.4-46.3); Red Blood Count 4.58 M/uL (4.63-6.08); White Blood Count 9.56 K/ul (4.8-10.8)
[2022-10-10 07:06] LABS: BUN Creatinine Ratio 16.1 (10-20); Calcium 9.6 mg/dl (8.5-10.1); Est GFR (African American) 142.8 ml/min; Est GFR (Non-African American) 123.2 ml/min
[2022-10-10] MEDS: SERTRALINE HCL 100 MG TABLET PO SCH (08:11)
[2022-10-10] MEDS: lamoTRIgine 25 MG TAB PO SCH ×2 (08:11→21:46)
[2022-10-10] MEDS: PANTOprazole 40 MG TAB PO SCH (08:11)
[2022-10-10] MEDS: MULTIVITAMIN TAB PO SCH (08:11)
[2022-10-10] MEDS: ACETAMINOPHEN 500 MG TAB PO SCH (08:12)
[2022-10-10] MEDS: AZITHROMYCIN 250 MG TAB PO SCH (08:12)
[2022-10-10] MEDS: SODIUM CHLORIDE 0.65% NA SOLN 45 ML (OCEAN) NAE SCH ×2 (08:12→21:46)
[2022-10-10] MEDS: FLUTICASONE/VILANTEROL 200/25MCG 14 PUFFS/INHALER INH SCH (08:12)
[2022-10-10] MEDS: ATORVASTATIN 40 MG TAB PO SCH (08:12)
[2022-10-10] MEDS ORDERED: ACETAMINOPHEN 325 MG TAB PO PRN (09:27)
[2022-10-10] MEDS: CEFDINIR 300 MG CAP PO SCH ×2 (11:09→21:46)
--- NOTE | 2022-10-10 14:55 | Electroencephalogram ---
EEG Procedure Note Date of Service October 10, 2022 Start / End Times Start Time: 12:24 End Time: 12:44 Referring Physician Yohan Varma MD History The patient has remote history of recurrent seizures, who was admitted after having a breakthrough generalized seizure. This EEG is ordered to evaluate for epileptogenic activity. Home Medication List Medication Instructions Recorded Confirmed Type albuterol sulfate 90 mcg/actuation 2 puff inhalation Q4 PRN 09/10/18 10/07/22 History aerosol inhaler cough,sob,wheeze sertraline 100 mg tablet 100 mg PO DAILY 01/28/20 10/07/22 History albuterol sulfate 2.5 mg/3 mL 2.5 mg inhalation QID PRN 10/07/22 10/07/22 History (0.083 %) solution for nebulization Shortness Of Breath Or Wheezing atorvastatin 40 mg tablet 40 mg PO DAILY 10/07/22 10/07/22 History fluticasone 250 mcg-salmeterol 50 1 inh inhalation BID 10/07/22 10/07/22 History mcg/dose blistr powdr for inhalation ([facility] In[facility]) ibuprofen 400 mg tablet 400 mg PO BID PRN Pain 10/07/22 10/07/22 History levothyroxine 75 mcg tablet 75 mcg PO DAILY 10/07/22 10/07/22 History multivitamin 1 tab PO DAILY 10/07/22 10/07/22 History omeprazole 20 mg tablet,delayed 20 mg PO DAILY 10/07/22 10/07/22 History release Inpatient Medication List Albuterol (Albuterol Hfa 8 Gm Inhaler) 2 puffs INH Q4R PRN PRN Reason: cough,sob,wheeze Stop: 11/06/22 08:50 Last Admin: 10/10/22 14:32 Dose: 2 puffs Documented By: Admin: 10/10/22 10:40 Dose: 2 puffs Documented By: JBDeyvi Admin: 10/10/22 05:28 Dose: 2 puffs Documented By: Admin: 10/09/22 19:28 Dose: 2 puffs Documented By: Admin: 10/09/22 15:47 Dose: 2 puffs Documented By: Admin: 10/09/22 12:03 Dose: 2 puffs Documented By: Admin: 10/09/22 01:26 Dose: 2 puffs Documented By: Admin: 10/08/22 16:35 Dose: 2 puffs Documented By: JONO(2) Admin: 10/07/22 16:30 Dose: 2 puffs Documented By: MARY Albuterol (Albuterol 0.5% Neb Soln 2.5 Mg/0.5 Ml Vial) 2.5 mg NEB QIDR [facility]; Protocol Stop: 11/08/22 10:59 Last Admin: 10/10/22 14:33 Dose: Not Given Documented By: Admin: 10/10/22 10:40 Dose: Not Given Documented By: Admin: 10/10/22 05:41 Dose: Not Given Documented By: Admin: 10/09/22 19:34 Dose: Not Given Documented By: Admin: 10/09/22 15:47 Dose: Not Given Documented By: Admin: 10/09/22 12:04 Dose: Not Given Documented By: CHELLE Atorvastatin Calcium (Atorvastatin 40 Mg Tab) 40 mg PO DAILY [facility] Stop: 11/06/22 08:59 Last Admin: 10/10/22 08:12 Dose: 40 mg Documented By: Admin: 10/09/22 08:12 Dose: 40 mg Documented By: Admin: 10/08/22 08:10 Dose: 40 mg Documented By: Admin: 10/07/22 10:42 Dose: 40 mg Documented By: SLICK Azithromycin (Azithromycin 250 Mg Tab) 250 mg PO QAM [facility] Stop: 10/13/22 08:59 Last Admin: 10/10/22 08:12 Dose: 250 mg Documented By: Admin: 10/09/22 08:12 Dose: 250 mg Documented By: PRADEEP Cefdinir (Cefdinir 300 Mg Cap) 300 mg PO BID [facility]; Protocol Stop: 10/17/22 09:29 Last Admin: 10/10/22 11:09 Dose: 300 mg Documented By: PRADEEP Enoxaparin Sodium (Enoxaparin Inj 40 Mg/0.4 Ml Syr) 40 mg SQ HS [facility] Stop: 11/08/22 20:59 Last Admin: 10/09/22 19:32 Dose: 40 mg Documented By: JOAN Fluticasone/Vilanterol (Fluticasone/Vilanterol 200/25mcg 14 Puffs/Inhaler) 1 puffs INH DAILY [facility]; Protocol Stop: 11/07/22 08:59 Last Admin: 10/10/22 08:12 Dose: 1 puffs Documented By: Admin: 10/09/22 08:12 Dose: 1 puffs Documented By: Admin: 10/07/22 10:43 Dose: 1 puffs Documented By: SLICK Ketorolac Tromethamine (Ketorolac Tromethamine 15 Mg/Ml Vial) 15 mg IV Q6H PRN PRN Reason: Pain not controlled by Tylenol Stop: 10/12/22 12:31 Last Admin: 10/07/22 15:58 Dose: 15 mg Documented By: SLICK Lamotrigine (Lamotrigine 25 Mg Tab) 25 mg PO BID [facility] Stop: 10/14/22 21:01 Last Admin: 10/10/22 08:11 Dose: 25 mg Documented By: Admin: 10/09/22 19:32 Dose: 25 mg Documented By: Admin: 10/09/22 08:11 Dose: 25 mg Documented By: Admin: 10/08/22 22:33 Dose: 25 mg Documented By: Admin: 10/08/22 15:48 Dose: 25 mg Documented By: KALIE Levothyroxine Sodium (Levothyroxine Sodium 75 Mcg Tablet) 75 mcg PO DAILYBB [facility] Stop: 11/06/22 08:59 Last Admin: 10/10/22 06:10 Dose: 75 mcg Documented By: Admin: 10/09/22 05:40 Dose: 75 mcg Documented By: Admin: 10/08/22 05:52 Dose: 75 mcg Documented By: Admin: 10/07/22 10:59 Dose: 75 mcg Documented By: SLICK Multivitamins (Multivitamin Tab) 1 tab PO DAILY [facility] Stop: 11/07/22 08:59 Last Admin: 10/10/22 08:11 Dose: 1 tab Documented By: Admin: 10/09/22 08:12 Dose: 1 tab Documented By: Admin: 10/08/22 08:10 Dose: 1 tab Documented By: KALIE Pantoprazole Sodium (Pantoprazole 40 Mg Tab) 40 mg PO DAILY [facility]; Protocol Stop: 11/06/22 08:59 Last Admin: 10/10/22 08:11 Dose: 40 mg Documented By: Admin: 10/09/22 08:11 Dose: 40 mg Documented By: Admin: 10/08/22 08:10 Dose: 40 mg Documented By: Admin: 10/07/22 10:42 Dose: 40 mg Documented By: SLICK Sertraline HCl (Sertraline Hcl 100 Mg Tablet) 100 mg PO DAILY [facility] Stop: 11/06/22 08:59 Last Admin: 10/10/22 08:11 Dose: 100 mg Documented By: Admin: 10/09/22 08:11 Dose: 100 mg Documented By: Admin: 10/08/22 08:10 Dose: 100 mg Documented By: Admin: 10/07/22 10:59 Dose: 100 mg Documented By: SLICK Sodium Chloride (Sodium Chloride 0.65% Na Soln 45 Ml ([place])) 2 sprays KERRI BID [facility] Stop: 11/06/22 12:44 Last Admin: 10/10/22 08:12 Dose: 2 sprays Documented By: Admin: 10/09/22 19:32 Dose: 2 sprays Documented By: Admin: 10/09/22 08:11 Dose: 2 sprays Documented By: Admin: 10/08/22 20:19 Dose: 2 sprays Documented By: Admin: 10/08/22 08:11 Dose: 2 sprays Documented By: Admin: 10/07/22 21:33 Dose: 2 sprays Documented By: Admin: 10/07/22 15:41 Dose: Not Given Documented By: SLICK Discontinued Medications Acetaminophen (Acetaminophen 325 Mg Tab) Confirm Administered Dose 650 mg .ROUTE .STK-MED ONE Stop: 10/07/22 08:33 Last Admin: 10/07/22 09:08 Dose: Not Given Documented By: SLICK Acetaminophen (Acetaminophen 500 Mg Tab) 1,000 mg PO Q8H [facility] Stop: 11/06/22 14:59 Last Admin: 10/10/22 08:12 Dose: 1,000 mg Documented By: Admin: 10/09/22 22:14 Dose: 1,000 mg Documented By: Admin: 10/09/22 14:15 Dose: 1,000 mg Documented By: Admin: 10/09/22 05:47 Dose: 1,000 mg Documented By: Admin: 10/08/22 22:34 Dose: 1,000 mg Documented By: Admin: 10/08/22 14:09 Dose: 1,000 mg Documented By: Admin: 10/08/22 06:09 Dose: 1,000 mg Documented By: JEAN MARIEK Admin: 10/07/22 22:27 Dose: 1,000 mg Documented By: JEAN MARIEK Admin: 10/07/22 16:10 Dose: 1,000 mg Documented By: SLICK Azithromycin (Azithromycin 250 Mg Tab) 500 mg PO NOW ONE Stop: 10/08/22 12:28 Last Admin: 10/08/22 13:50 Dose: 500 mg Documented By: KALIE Fentanyl Citrate (Fentanyl Citrate 100 Mcg/2 Ml Vial) 50 mcg IV NOW STA Stop: 10/07/22 03:12 Last Admin: 10/07/22 03:40 Dose: 50 mcg Documented By: JULIO CÉSAR Fentanyl Citrate (Fentanyl Citrate 100 Mcg/2 Ml Vial) 50 mcg IV NOW STA Stop: 10/07/22 04:35 Last Admin: 10/07/22 04:58 Dose: 50 mcg Documented By: PRATEEK Heparin Sodium (Porcine) (Heparin Sod 5,000 Unit/0.5 Ml Vial) 5,000 units SQ Q8 [facility] Stop: 11/06/22 08:50 Last Admin: 10/09/22 05:41 Dose: 5,000 units Documented By: Admin: 10/08/22 22:35 Dose: 5,000 units Documented By: Admin: 10/08/22 13:51 Dose: Not Given Documented By: Admin: 10/08/22 05:33 Dose: Not Given Documented By: Admin: 10/07/22 21:33 Dose: Not Given Documented By: Admin: 10/07/22 15:55 Dose: 5,000 units Documented By: Admin: 10/07/22 10:43 Dose: 5,000 units Documented By: SLICK Hydromorphone HCl (Hydromorphone Inj 0.5 Mg/0.5 Ml Syr) 0.5 mg IV NOW STA Stop: 10/07/22 06:06 Last Admin: 10/07/22 06:10 Dose: 0.5 mg Documented By: PRATEEK Levetiracetam 2,000 mg/ Sodium (Chloride) 270 mls @ 999 mls/hr IV NOW STA Stop: 10/07/22 04:59 Last Infusion: 10/07/22 05:44 Dose: 0 mls/hr Documented By: Admin: 10/07/22 05:13 Dose: 999 mls/hr Documented By: PRATEEK Sodium Chloride (Nss) 500 mls @ 125 mls/hr IV .Q4H [facility] Stop: 11/06/22 04:44 Last Admin: 10/07/22 11:11 Dose: Not Given Documented By: Infusion: 10/07/22 11:11 Dose: 0 mls/hr Documented By: Admin: 10/07/22 04:58 Dose: 125 mls/hr Documented By: PRATEEK Sodium Chloride (Nss 1000ml) 1,000 mls @ 125 mls/hr IV .Q8H [facility] Stop: 10/07/22 16:50 Last Infusion: 10/07/22 13:00 Dose: 0 mls/hr Documented By: Admin: 10/07/22 09:08 Dose: 125 mls/hr Documented By: SLICK Levetiracetam 500 mg/ Sodium (Chloride) 105 mls @ 420 mls/hr IV Q12H [facility] Stop: 11/06/22 16:59 Last Infusion: 10/08/22 06:04 Dose: 0 mls/hr Documented By: Infusion: 10/08/22 05:47 Dose: 420 mls/hr Documented By: Infusion: 10/08/22 05:32 Dose: 0 mls/hr Documented By: Admin: 10/08/22 05:24 Dose: 420 mls/hr Documented By: Infusion: 10/07/22 17:29 Dose: 0 mls/hr Documented By: Admin: 10/07/22 17:01 Dose: 420 mls/hr Documented By: SLICK Methylprednisolone 40 mg/ (Syringe) 0.64 mls @ 1.5 mls/min IV Q6H [facility] Stop: 11/08/22 13:59 Last Admin: 10/10/22 08:13 Dose: 1.5 mls/min Documented By: Admin: 10/10/22 02:35 Dose: 1.5 mls/min Documented By: HSRafael Admin: 10/09/22 19:31 Dose: 1.5 mls/min Documented By: Admin: 10/09/22 14:15 Dose: 1.5 mls/min Documented By: PRADEEP Menthol (Cough Drop (Sugar Free) North 24 North/1 Box) Confirm Administered Dose 24 north [place] .STK-MED ONE Stop: 10/07/22 14:51 Last Admin: 10/07/22 16:06 Dose: 24 north Documented By: SLICK Ondansetron HCl (Ondansetron Inj 2 Mg/Ml 2 Ml Vial) 4 mg IV NOW STA Stop: 10/07/22 03:12 Last Admin: 10/07/22 03:40 Dose: 4 mg Documented By: JULIO CÉSAR Oxycodone HCl (Oxycodone Hcl Ir 5 Mg Tab (Immediate Release)) 5 mg PO Q4H PRN PRN Reason: Pain Stop: 10/21/22 09:14 Last Admin: 10/07/22 10:48 Dose: 5 mg Documented By: SLICK Potassium Chloride (Potassium Chloride 20 Meq/15 Ml Udc) 20 meq PO NOW STA Stop: 10/07/22 08:52 Last Admin: 10/07/22 10:42 Dose: 20 meq Documented By: SLICK Prednisone (Prednisone 20 Mg Tab) 40 mg PO DAILY [facility] Stop: 10/13/22 12:29 Last Admin: 10/09/22 08:11 Dose: 40 mg Documented By: Admin: 10/08/22 13:50 Dose: 40 mg Documented By: KALIE Description This is a 21 electrode EEG with a single channel dedicated to limited EKG. The electrodes were placed in accordance with the International 10-20 system. Interpretation During restful wakefulness, there is 25 to 40 V, 9 Hz posterior activity, attenuates with eye opening bilaterally. Background activity shows good organization without focal slowing or asymmetry. During sleep, vertex sharp waves and sleep spindles are recorded bilaterally and symmetrically, as an indicator of stage II sleep. Photic stimulations induced posterior driving responses bilaterally. Hyperventilation does not induce typical buildup slowing responses or abnormal discharges. There are no electrographic seizures, or epileptogenic discharges. Impression: This EEG, recorded in wakefulness and sleep, is normal. There is no electrographic seizure or epileptogenic discharge. Clinical Correlation Normal interictal routine EEG does not rule out seizure disorder definitively. If clinically indicated, a prolonged recording with sleep deprivation might offer further information.
--- NOTE | 2022-10-10 17:48 | Hospitalist Progress Note ---
Date of Service October 10, 2022 Assessment & Plan (1) Seizure: Plan: He has a history of epilepsy and has been off Keppra for several years, last seizure was 6 years ago. Followed by [facility] neurology as outpatient. 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 Patient understands all seizure restrictions including no driving. Experienced side effects from the keppra historically and during this admission. changed to Lamotrigine with titration and counseled about rash. CBC should also be checked to monitor for blood dyscrasias, and he will follow with neurology as outpatient in next few weeks. (2) Asthma exacerbation: Plan: Expiratory wheezing persists. It is likely that the patient had an aspiration event during his seizure. Still with cough and pleurisy. Chest imaging to date has shown no evidence of pneumonia. Repeat CXR did not reveals aurora pneumonia but there is bilateral atelectasis reported. Suspect he may have a bronchitis or asthma exacerbation. Cont with solumedrol, scheduled albuterol nebs and cont abx. Cont inpatient monitoring. (3) Cervical strain: Plan: Supportive care with scheduled APAP-improved so changed to PRN. Toradol PRN (4) Contusion of elbow, right: Plan: Supportive care, improved. (5) PFO (patent foramen ovale): Plan: Per cardiology no further work-up at this time (6) Hypothyroidism: Plan: Chronic, stable, continue levothyroxine per home regimen. (7) DVT prophylaxis: Plan: Heparin Full code Disposition-back to [facility] after wheezing improves. María Elena Cantrell DO [facility] Hospitalist Admission and Anticipated Discharge Date Admission Date: October 07, 2022 Subjective 47-year-old man admitted for seizure with fall Doing well on Lamotrigine-denies rash Fatigued today-not much sleep overnight--possible steroid side effect? Still feels burning sensation when he coughs bety on the right which is not improved Still with expiratory wheezing Denies fevers or chills Not requiring oxygen Review of Systems Review of Systems: All systems reviewed negative except as indicated above. Physical Exam Physical Exam: CONSTITUTIONAL: WNWD, vitals as above, generally well- appearing, NAD EYES: PERRL, normal conjunctivae, no scleral icterus ENT: external ear and nose normal, MMM NECK: trachea midline, RESPIRATORY: Normal respiratory effort, expiratory wheezing in lung bases with improvement from yesterday No crackles or rales. CARDIOVASCULAR: regular rate and rhythm, S1 and 2 heard without murmurs, gallops or rubs, no JVD, no peripheral edema, CHEST: inspection of chest was normal GASTROINTESTINAL: soft, nontender,ND, no guarding MUSCULOSKELETAL: strength 5/5 throughout, head is normocephalic and atraumatic SKIN: warm and dry, NEUROLOGIC: CN 2-12 grossly intact, no sensory deficit, normal cognition, normal speech, no tremor PSYCHIATRIC: alert cooperative and oriented to person, place and time. Euthymic mood, makes good eye contact, language grossly intact, recent and remote memory grossly intact. Results & Data Results & Data ([facility]) Vital Signs (Past 12 Hours) Vital Signs Temp Pulse Pulse Resp BP Pulse Ox O2 Del Method 10/10/22 16:59 37.1 C 72 18 135/77 95 Room Air 10/10/22 15:35 91 H 10/10/22 14:34 70 16 96 Room Air 10/10/22 11:37 36.9 C 91 H 18 119/71 95 Room Air 10/10/22 10:43 71 18 96 Room Air 10/10/22 09:14 Room Air 10/10/22 07:29 36.7 C 78 18 125/75 98 Room Air 10/10/22 07:16 86 Laboratory Results Short CBC 10/10/22 Range/Units 06:31 WBC 9.56 (4.8-10.8) K/ul Hgb 13.6 L (14.0-18.0) g/dl Hct 38.9 L (40.1-51.0) % Plt Count 203 (130-400) K/uL BMP 10/10/22 06:31 Sodium 138 Potassium 4.0 Chloride 104 Carbon Dioxide 27 BUN 9 Creatinine 0.56 L Glucose 120 H Calcium 9.6 Medications Administered Current Inpatient Medications Acetaminophen (Acetaminophen 325 Mg Tab) 650 mg PO Q6H PRN PRN Reason: pain/fever Stop: 11/09/22 09:26 Albuterol (Albuterol Hfa 8 Gm Inhaler) 2 puffs INH Q4R PRN PRN Reason: cough,sob,wheeze Stop: 11/06/22 08:50 Last Admin: 10/10/22 14:32 Dose: 2 puffs Albuterol (Albuterol 0.5% Neb Soln 2.5 Mg/0.5 Ml Vial) 2.5 mg NEB QIDR [facility]; Protocol Stop: 11/08/22 10:59 Last Admin: 10/10/22 14:33 Dose: Not Given Atorvastatin Calcium (Atorvastatin 40 Mg Tab) 40 mg PO DAILY [facility] Stop: 11/06/22 08:59 Last Admin: 10/10/22 08:12 Dose: 40 mg Azithromycin (Azithromycin 250 Mg Tab) 250 mg PO QAM [facility] Stop: 10/13/22 08:59 Last Admin: 10/10/22 08:12 Dose: 250 mg Cefdinir (Cefdinir 300 Mg Cap) 300 mg PO BID [facility]; Protocol Stop: 10/17/22 09:29 Last Admin: 10/10/22 11:09 Dose: 300 mg Enoxaparin Sodium (Enoxaparin Inj 40 Mg/0.4 Ml Syr) 40 mg SQ HS [facility] Stop: 11/08/22 20:59 Last Admin: 10/09/22 19:32 Dose: 40 mg Fluticasone/Vilanterol (Fluticasone/Vilanterol 200/25mcg 14 Puffs/Inhaler) 1 puffs INH DAILY [facility]; Protocol Stop: 11/07/22 08:59 Last Admin: 10/10/22 08:12 Dose: 1 puffs Methylprednisolone 40 mg/ (Syringe) 0.64 mls @ 1.5 mls/min IV Q8H [facility] Stop: 11/09/22 15:59 Last Admin: 10/10/22 16:38 Dose: 1.5 mls/min Ketorolac Tromethamine (Ketorolac Tromethamine 15 Mg/Ml Vial) 15 mg IV Q6H PRN PRN Reason: Pain not controlled by Tylenol Stop: 10/12/22 12:31 Last Admin: 10/07/22 15:58 Dose: 15 mg Lamotrigine (Lamotrigine 25 Mg Tab) 25 mg PO BID [facility] Stop: 10/14/22 21:01 Last Admin: 10/10/22 08:11 Dose: 25 mg Levothyroxine Sodium (Levothyroxine Sodium 75 Mcg Tablet) 75 mcg PO DAILYBB [facility] Stop: 11/06/22 08:59 Last Admin: 10/10/22 06:10 Dose: 75 mcg Lorazepam (Lorazepam 1 Mg/1 Ml Syr) 1.5 mg IV Q2H PRN; Protocol PRN Reason: Breakthrough Seizures Stop: 11/06/22 08:50 Multivitamins (Multivitamin Tab) 1 tab PO DAILY [facility] Stop: 11/07/22 08:59 Last Admin: 10/10/22 08:11 Dose: 1 tab Nitroglycerin (Nitroglycerin Sl 0.4 Mg/Tab Tab) 0.4 mg SL UD PRN PRN Reason: Chest Pain Stop: 11/06/22 08:50 Pantoprazole Sodium (Pantoprazole 40 Mg Tab) 40 mg PO DAILY [facility]; Protocol Stop: 11/06/22 08:59 Last Admin: 10/10/22 08:11 Dose: 40 mg Polyethylene Glycol (Polyethylene (Miralax) 17 Gm Pack) 17 gm PO DAILY PRN PRN Reason: Constipation Stop: 11/06/22 08:50 Sertraline HCl (Sertraline Hcl 100 Mg Tablet) 100 mg PO DAILY [facility] Stop: 11/06/22 08:59 Last Admin: 10/10/22 08:11 Dose: 100 mg Sodium Chloride (Sodium Chloride 0.65% Na Soln 45 Ml ([place])) 2 sprays KERRI BID [facility] Stop: 11/06/22 12:44 Last Admin: 10/10/22 08:12 Dose: 2 sprays Zolpidem Tartrate (Zolpidem Tartrate 5 Mg Tab) 5 mg PO HS [facility] Stop: 11/09/22 20:59 (1) Cervical strain Encounter type: initial encounter Qualified Code(s): S16.1XXA - Strain of muscle, fascia and tendon at neck level, initial encounter (2) Contusion of elbow, right Encounter type: initial encounter Qualified Code(s): S50.01XA - Contusion of right elbow, initial encounter
[2022-10-10] MEDS: ENOXAPARIN INJ 40 MG/0.4 ML SYR SQ SCH (21:46)
[2022-10-10] MEDS: ZOLPIDEM TARTRATE 5 MG TAB PO SCH (21:46)
[2022-10-11] MEDS: methylPREDNISolone 40 MG in SYRINGE 0 ML IV SCH ×3 (00:17→16:10)
[2022-10-11] MEDS: LEVOTHYROXINE SODIUM 75 MCG TABLET PO SCH (06:15)
[2022-10-11] MEDS: ALBUTEROL 0.5% NEB SOLN 2.5 MG/0.5 ML VIAL NEB SCH ×4 (07:12→17:45)
[2022-10-11] MEDS: ALBUTEROL HFA 8 GM INHALER INH PRN ×4 (07:13→17:45)
[2022-10-11 08:47] LABS: Hematocrit (blood only) 42.8 % (40.1-51.0); Hemoglobin 14.4 g/dl (14.0-18.0); Mean Corpuscular Hemoglobin 29.6 pg (25.0-34.0); Mean Corpuscular Hgb Conc 33.6 g/dL (32.0-36.0); Mean Corpuscular Volume 87.9 fL (80.0-100.0); Mean Platelet Volume 9.4 fL (9.4-12.4); Platelet Count 220 K/uL (130-400); RDW Coefficient of Variation 13.2 % (11.5-14.5); RDW Standard Deviation 42.3 fL (36.4-46.3); Red Blood Count 4.87 M/uL (4.63-6.08); White Blood Count 10.68 K/ul (4.8-10.8)
[2022-10-11] MEDS: FLUTICASONE/VILANTEROL 200/25MCG 14 PUFFS/INHALER INH SCH (08:51)
[2022-10-11] MEDS: SODIUM CHLORIDE 0.65% NA SOLN 45 ML (OCEAN) NAE SCH ×2 (08:51→20:13)
[2022-10-11] MEDS: lamoTRIgine 25 MG TAB PO SCH ×2 (08:52→20:11)
[2022-10-11] MEDS: SERTRALINE HCL 100 MG TABLET PO SCH (08:52)
[2022-10-11] MEDS: MULTIVITAMIN TAB PO SCH (08:52)
[2022-10-11] MEDS: CEFDINIR 300 MG CAP PO SCH ×2 (08:52→20:12)
[2022-10-11] MEDS: AZITHROMYCIN 250 MG TAB PO SCH (08:52)
[2022-10-11] MEDS: ATORVASTATIN 40 MG TAB PO SCH (08:52)
[2022-10-11] MEDS: PANTOprazole 40 MG TAB PO SCH (08:52)
[2022-10-11 09:11] LABS: Calcium 9.9 mg/dl (8.5-10.1); Creatinine Clr Calc Pharmacy 164.4 ml/min; Est GFR (African American) 137.8 ml/min; Est GFR (Non-African American) 118.9 ml/min; Potassium 4.1 mmol/L (3.5-5.1)
--- NOTE | 2022-10-11 16:46 | Hospitalist Progress Note ---
Date of Service October 11, 2022 Assessment & Plan (1) Seizure: Plan: He has a history of epilepsy and has been off Keppra for several years, last seizure was 6 years ago. Followed by [facility] neurology as outpatient. 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 Patient understands all seizure restrictions including no driving. Experienced side effects from the keppra historically and during this admission. changed to Lamotrigine with titration and counseled about rash. CBC should also be checked to monitor for blood dyscrasias, and he will follow with neurology as outpatient in next few weeks. Remains seizure-free this admission. (2) Asthma exacerbation: Plan: Expiratory wheezing persists. It is likely that the patient had an aspiration event during his seizure. Still with cough now productive of greenish mucous and pleurisy. Chest imaging to date has shown no evidence of pneumonia. Repeat CXR did not reveals aurora pneumonia but there is bilateral atelectasis reported. Suspect he may have a bronchitis or asthma exacerbation. Cont with solumedrol, with de-escalation to prednisone in an, cont scheduled albuterol nebs and cont abx. Seems improved after adding the cefdinir to the azithromycin so will continue these for 7 day course. Cont inpatient monitoring. (3) Cervical strain: Plan: Supportive care with scheduled APAP-improved so changed to PRN. Toradol PRN (4) Contusion of elbow, right: Plan: Supportive care, improved. (5) PFO (patent foramen ovale): Plan: Per cardiology no further work-up at this time (6) Hypothyroidism: Plan: Chronic, stable, continue levothyroxine per home regimen. (7) DVT prophylaxis: Plan: Heparin Full code Disposition-back to [facility] after wheezing improves. María Elena Cantrell DO [facility] Hospitalist Admission and Anticipated Discharge Date Admission Date: October 07, 2022 Subjective 47-year-old man admitted for seizure with fall Doing well on Lamotrigine-denies rash Fatigued today-better sleep with ambien last night Still feels burning sensation when he coughs bety on the right but is starting to cough up more greenish type mucous Remains afebrile Still with expiratory wheezing in lower lungs that is improved today on auscultation. Not requiring oxygen Review of Systems Review of Systems: All systems reviewed negative except as indicated above. Physical Exam Physical Exam: CONSTITUTIONAL: WNWD, vitals as above, generally well- appearing, NAD EYES: PERRL, normal conjunctivae, no scleral icterus ENT: external ear and nose normal, MMM NECK: trachea midline, RESPIRATORY: Normal respiratory effort, expiratory wheezing in lung bases with improvement from yesterday No crackles or rales. CARDIOVASCULAR: regular rate and rhythm, S1 and 2 heard without murmurs, gallops or rubs, no JVD, no peripheral edema, CHEST: inspection of chest was normal GASTROINTESTINAL: soft, nontender,ND, no guarding MUSCULOSKELETAL: strength 5/5 throughout, head is normocephalic and atraumatic SKIN: warm and dry, NEUROLOGIC: CN 2-12 grossly intact, no sensory deficit, normal cognition, normal speech, no tremor PSYCHIATRIC: alert cooperative and oriented to person, place and time. Euthymic mood, makes good eye contact, language grossly intact, recent and remote memory grossly intact. Results & Data Results & Data ([facility]) Vital Signs (Past 12 Hours) Vital Signs Temp Pulse Pulse Resp BP Pulse Ox O2 Del Method 10/11/22 16:34 36.8 C 102 H 18 127/69 91 Room Air 10/11/22 15:07 81 18 96 Room Air 10/11/22 11:50 36.6 C 73 20 128/72 94 Room Air 10/11/22 11:12 70 18 95 Room Air 10/11/22 09:55 Room Air 10/11/22 07:41 36.4 C L 71 18 131/74 94 Room Air 10/11/22 07:22 65 10/11/22 07:13 69 18 96 Room Air Laboratory Results Short CBC 10/11/22 Range/Units 07:54 WBC 10.68 (4.8-10.8) K/ul Hgb 14.4 (14.0-18.0) g/dl Hct 42.8 (40.1-51.0) % Plt Count 220 (130-400) K/uL BMP 10/11/22 07:54 Sodium 140 Potassium 4.1 Chloride 103 Carbon Dioxide 29 BUN 11 Creatinine 0.61 Glucose 108 H Calcium 9.9 Medications Administered Current Inpatient Medications Acetaminophen (Acetaminophen 325 Mg Tab) 650 mg PO Q6H PRN PRN Reason: pain/fever Stop: 11/09/22 09:26 Last Admin: 10/11/22 00:18 Dose: 650 mg Albuterol (Albuterol Hfa 8 Gm Inhaler) 2 puffs INH Q4R PRN PRN Reason: cough,sob,wheeze Stop: 11/06/22 08:50 Last Admin: 10/11/22 15:06 Dose: 2 puffs Albuterol (Albuterol 0.5% Neb Soln 2.5 Mg/0.5 Ml Vial) 2.5 mg NEB QIDR [facility]; Protocol Stop: 11/08/22 10:59 Last Admin: 10/11/22 15:06 Dose: Not Given Atorvastatin Calcium (Atorvastatin 40 Mg Tab) 40 mg PO DAILY [facility] Stop: 11/06/22 08:59 Last Admin: 10/11/22 08:52 Dose: 40 mg Azithromycin (Azithromycin 250 Mg Tab) 250 mg PO QAM [facility] Stop: 10/13/22 08:59 Last Admin: 10/11/22 08:52 Dose: 250 mg Cefdinir (Cefdinir 300 Mg Cap) 300 mg PO BID [facility]; Protocol Stop: 10/17/22 09:29 Last Admin: 10/11/22 08:52 Dose: 300 mg Enoxaparin Sodium (Enoxaparin Inj 40 Mg/0.4 Ml Syr) 40 mg SQ HS [facility] Stop: 11/08/22 20:59 Last Admin: 10/10/22 21:46 Dose: 40 mg Fluticasone/Vilanterol (Fluticasone/Vilanterol 200/25mcg 14 Puffs/Inhaler) 1 puffs INH DAILY [facility]; Protocol Stop: 11/07/22 08:59 Last Admin: 10/11/22 08:51 Dose: 1 puffs Methylprednisolone 40 mg/ (Syringe) 0.64 mls @ 1.5 mls/min IV Q8H [facility] Stop: 11/09/22 15:59 Last Admin: 10/11/22 16:10 Dose: 1.5 mls/min Ketorolac Tromethamine (Ketorolac Tromethamine 15 Mg/Ml Vial) 15 mg IV Q6H PRN PRN Reason: Pain not controlled by Tylenol Stop: 10/12/22 12:31 Last Admin: 10/07/22 15:58 Dose: 15 mg Lamotrigine (Lamotrigine 25 Mg Tab) 25 mg PO BID [facility] Stop: 10/14/22 21:01 Last Admin: 10/11/22 08:52 Dose: 25 mg Levothyroxine Sodium (Levothyroxine Sodium 75 Mcg Tablet) 75 mcg PO DAILYBB [facility] Stop: 11/06/22 08:59 Last Admin: 10/11/22 06:15 Dose: 75 mcg Lorazepam (Lorazepam 1 Mg/1 Ml Syr) 1.5 mg IV Q2H PRN; Protocol PRN Reason: Breakthrough Seizures Stop: 11/06/22 08:50 Multivitamins (Multivitamin Tab) 1 tab PO DAILY [facility] Stop: 11/07/22 08:59 Last Admin: 10/11/22 08:52 Dose: 1 tab Nitroglycerin (Nitroglycerin Sl 0.4 Mg/Tab Tab) 0.4 mg SL UD PRN PRN Reason: Chest Pain Stop: 11/06/22 08:50 Pantoprazole Sodium (Pantoprazole 40 Mg Tab) 40 mg PO DAILY [facility]; Protocol Stop: 11/06/22 08:59 Last Admin: 10/11/22 08:52 Dose: 40 mg Polyethylene Glycol (Polyethylene (Miralax) 17 Gm Pack) 17 gm PO DAILY PRN PRN Reason: Constipation Stop: 11/06/22 08:50 Sertraline HCl (Sertraline Hcl 100 Mg Tablet) 100 mg PO DAILY [facility] Stop: 11/06/22 08:59 Last Admin: 10/11/22 08:52 Dose: 100 mg Sodium Chloride (Sodium Chloride 0.65% Na Soln 45 Ml ([place])) 2 sprays KERRI BID [facility] Stop: 11/06/22 12:44 Last Admin: 10/11/22 08:51 Dose: 2 sprays Zolpidem Tartrate (Zolpidem Tartrate 5 Mg Tab) 5 mg PO HS [facility] Stop: 11/09/22 20:59 Last Admin: 10/10/22 21:46 Dose: 5 mg (1) Cervical strain Encounter type: initial encounter Qualified Code(s): S16.1XXA - Strain of muscle, fascia and tendon at neck level, initial encounter (2) Contusion of elbow, right Encounter type: initial encounter Qualified Code(s): S50.01XA - Contusion of right elbow, initial encounter
[2022-10-11] MEDS: ENOXAPARIN INJ 40 MG/0.4 ML SYR SQ SCH (20:12)
[2022-10-11] MEDS: ZOLPIDEM TARTRATE 5 MG TAB PO SCH (21:43)
[2022-10-12] MEDS: methylPREDNISolone 40 MG in SYRINGE 0 ML IV SCH ×2 (00:59→08:11)
[2022-10-12] MEDS: LEVOTHYROXINE SODIUM 75 MCG TABLET PO SCH (06:17)
[2022-10-12] MEDS: ALBUTEROL HFA 8 GM INHALER INH PRN (07:20)
[2022-10-12] MEDS: ALBUTEROL 0.5% NEB SOLN 2.5 MG/0.5 ML VIAL NEB SCH (07:21)
[2022-10-12] MEDS: ATORVASTATIN 40 MG TAB PO SCH (08:48)
[2022-10-12] MEDS: SERTRALINE HCL 100 MG TABLET PO SCH (08:48)
[2022-10-12] MEDS: CEFDINIR 300 MG CAP PO SCH ×2 (08:48→21:08)
[2022-10-12] MEDS: MULTIVITAMIN TAB PO SCH (08:48)
[2022-10-12] MEDS: lamoTRIgine 25 MG TAB PO SCH ×2 (08:48→21:08)
[2022-10-12] MEDS: PANTOprazole 40 MG TAB PO SCH (08:48)
[2022-10-12] MEDS: AZITHROMYCIN 250 MG TAB PO SCH (08:48)
[2022-10-12] MEDS: SODIUM CHLORIDE 0.65% NA SOLN 45 ML (OCEAN) NAE SCH ×2 (08:49→21:08)
[2022-10-12] MEDS: FLUTICASONE/VILANTEROL 200/25MCG 14 PUFFS/INHALER INH SCH (08:49)
[2022-10-12] MEDS ORDERED: predniSONE 20 MG TAB PO SCH (09:00)
[2022-10-12] MEDS ORDERED: CEFDINIR 300 MG CAP PO SCH (11:45)
[2022-10-12] MEDS: ALBUT/IPRATROP 3MG/0.5MG NEB 3 ML VIAL NEB SCH ×2 (14:09→19:14)
--- NOTE | 2022-10-12 15:28 | Hospitalist Progress Note ---
Date of Service October 12, 2022 Assessment & Plan (1) Seizure: Plan: History of epilepsy and has been off Keppra for several years, last seizure was 6 years ago. Followed by [facility] neurology as outpatient. 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 Patient understands all seizure restrictions including no driving. Neurology consulted Patient initially treated with Keppra however experienced side effects, therefore changed to lamotrigine with up titration schedule. CBC should also be checked to monitor for blood dyscrasias Follow with neurology as outpatient in next few weeks. Remains seizure-free this admission. (2) Asthma exacerbation: Plan: Expiratory wheezing persists with productive cough with green mucus. Suspected aspiration event during seizure. No obvious pneumonia on chest imaging, suspect bronchitis and/or asthma exacerbation Treated with IV Solu-Medrol x 3 days and transitioned to PO prednisone today however patient reports increased flushing and diaphoresis. Will trial methylprednisolone 8 mg QID with prolonged taper if patient tolerates. Continue scheduled nebs, monitor peak flows On azithromycin (day 4), and cefdinir (day 3) (3) Cervical strain: Plan: Supportive care with scheduled APAP-improved so changed to PRN (4) Contusion of elbow, right: Plan: Supportive care, improved (5) PFO (patent foramen ovale): Plan: Per cardiology no further work-up at this time (6) Hypothyroidism: Plan: Chronic, stable, continue levothyroxine per home regimen (7) DVT prophylaxis: Plan: SQ Lovenox Disposition- Back to senior care after wheezing improves. Will need to confirm with nursing staff at senior care that patient has all medications readily available upon his return. Admission and Anticipated Discharge Date Admission Date: October 07, 2022 Supervising Physician Co-Signing Physician Notes I have seen and examined the patient and have discussed the case with the provider above. I agree with the assessment and plan as stated. Mr. Mckeon is diaphoretic and breathing is about the same today. It was discovered that in place of the scheduled nebulizer therapy, олег had been given the MDI instead. He reports a history of issues with prednisone in the past that were not known prior to giving this to him. He also handled the IV solumedrol well earlier in the admission. Physical exam was otherwise unremarkable. We discsussed the logistics about returning to senior care, where he will be required by policy to serve 5 days in solitary confinement. Also, there is a 3rd alliance party vendor who supplies the medical logistics for the senior care and it can take up to 3-4 days to get medications needed by the prisoners on site. For now, with the ongoing wheezing and reaction to prednisone, agree with adjusting steroid to oral methylprednisolone and titrating over at least one week on discharge. Will keep him for closes observation of response and to ensure he is getting scheduled nebs. If he doesn't tolerate the oral steroid, may considered nebulized p ulmicort. Ultimately, he will need to be conotinued on an oral inhaled steroid at discharge. The senior care has been unable to prrovide his [place] per their rforumlary restrictions. An alternative may need to be provided at discharge that he can continue immediately. It was also suggested that he be allowed to ambulate. The guards reported that may need to be cleared by the senior care but it would be possible with shackles in place. Cont to observe for now. Patient has one week left to serve in his sentence per the guards today. Óscar, DO Subjective Follow-up for seizure, asthma exacerbation. Patient seen and examined. Patient reports minimal improvement in wheezing and cough from yesterday. Seems to be tolerating lamotrigine. However does not appear to be tolerating oral prednisone with flushing and diaphoresis. Patient denies chest pain and shortness of breath. No lightheadedness or dizziness. Denies abdominal pain or nausea. Review of Systems Review of Systems: ROS per HPI, all other systems reviewed and negative Physical Exam Constitutional: WD/WN, vitals as above no acute distress Respiratory: normal respiratory effort; no respiratory distress Auscultation: + wheezes (Expiratory wheezing throughout) Cardiovascular: Rate/Rhythm: regular rate and regular rhythm Vessels: normal peripheral pulses Extremities: no edema Gastrointestinal (Abdomen): Percussion/Palpation: abdomen soft; abdomen nontender Skin: no rashes, warm and dry Neurologic: no focal motor deficits Psychiatric: A+Ox3, euthymic affect Results & Data Results & Data ([facility]) Vital Signs (Past 12 Hours) Vital Signs Temp Pulse Resp BP Pulse Ox O2 Del Method 10/12/22 15:00 36.6 C 75 16 117/70 95 Room Air 10/12/22 14:10 102 H 20 92 Room Air 10/12/22 08:25 Room Air 10/12/22 07:35 36.7 C 73 16 115/63 94 Room Air 10/12/22 07:21 70 16 95 Room Air Medications Administered Current Inpatient Medications Acetaminophen (Acetaminophen 325 Mg Tab) 650 mg PO Q6H PRN PRN Reason: pain/fever Stop: 11/09/22 09:26 Last Admin: 10/11/22 00:18 Dose: 650 mg Albuterol (Albut/Ipratrop 3mg/0.5mg Neb 3 Ml Vial) 3 ml NEB QIDR [facility]; Protocol Stop: 11/11/22 14:59 Last Admin: 10/13/22 06:05 Dose: 3 ml Atorvastatin Calcium (Atorvastatin 40 Mg Tab) 40 mg PO DAILY [facility] Stop: 11/06/22 08:59 Last Admin: 10/12/22 08:48 Dose: 40 mg Azithromycin (Azithromycin 250 Mg Tab) 250 mg PO QAM [facility] Stop: 10/13/22 08:59 Last Admin: 10/12/22 08:48 Dose: 250 mg Cefdinir (Cefdinir 300 Mg Cap) 300 mg PO BID [facility]; Protocol Stop: 10/17/22 09:29 Last Admin: 10/12/22 21:08 Dose: 300 mg Cefdinir (Cefdinir 300 Mg Cap) 300 mg PO BID; Protocol Stop: 10/13/22 12:00 Enoxaparin Sodium (Enoxaparin Inj 40 Mg/0.4 Ml Syr) 40 mg SQ HS [facility] Stop: 11/08/22 20:59 Last Admin: 10/12/22 21:07 Dose: 40 mg Fluticasone/Vilanterol (Fluticasone/Vilanterol 200/25mcg 14 Puffs/Inhaler) 1 puffs INH DAILY [facility]; Protocol Stop: 11/07/22 08:59 Last Admin: 10/12/22 08:49 Dose: 1 puffs Lamotrigine (Lamotrigine 25 Mg Tab) 25 mg PO BID [facility] Stop: 10/14/22 21:01 Last Admin: 10/12/22 21:08 Dose: 25 mg Levothyroxine Sodium (Levothyroxine Sodium 75 Mcg Tablet) 75 mcg PO DAILYBB [facility] Stop: 11/06/22 08:59 Last Admin: 10/13/22 05:53 Dose: 75 mcg Lorazepam (Lorazepam 1 Mg/1 Ml Syr) 1.5 mg IV Q2H PRN; Protocol PRN Reason: Breakthrough Seizures Stop: 11/06/22 08:50 Methylprednisolone (Methylprednisolone 4 Mg Tab) 8 mg PO QID [facility] Stop: 11/11/22 16:59 Last Admin: 10/12/22 21:08 Dose: 8 mg Multivitamins (Multivitamin Tab) 1 tab PO DAILY [facility] Stop: 11/07/22 08:59 Last Admin: 10/12/22 08:48 Dose: 1 tab Nitroglycerin (Nitroglycerin Sl 0.4 Mg/Tab Tab) 0.4 mg SL UD PRN PRN Reason: Chest Pain Stop: 11/06/22 08:50 Pantoprazole Sodium (Pantoprazole 40 Mg Tab) 40 mg PO DAILY [facility]; Protocol Stop: 11/06/22 08:59 Last Admin: 10/12/22 08:48 Dose: 40 mg Polyethylene Glycol (Polyethylene (Miralax) 17 Gm Pack) 17 gm PO DAILY PRN PRN Reason: Constipation Stop: 11/06/22 08:50 Sertraline HCl (Sertraline Hcl 100 Mg Tablet) 100 mg PO DAILY [facility] Stop: 11/06/22 08:59 Last Admin: 10/12/22 08:48 Dose: 100 mg Sodium Chloride (Sodium Chloride 0.65% Na Soln 45 Ml ([place])) 2 sprays KERRI BID [facility] Stop: 11/06/22 12:44 Last Admin: 10/12/22 21:08 Dose: 2 sprays Zolpidem Tartrate (Zolpidem Tartrate 5 Mg Tab) 5 mg PO HS [facility] Stop: 11/09/22 20:59 Last Admin: 10/12/22 21:10 Dose: 5 mg (1) Cervical strain Encounter type: initial encounter Qualified Code(s): S16.1XXA - Strain of muscle, fascia and tendon at neck level, initial encounter (2) Contusion of elbow, right Encounter type: initial encounter Qualified Code(s): S50.01XA - Contusion of right elbow, initial encounter
[2022-10-12] MEDS: methylPREDNISolone 4 MG TAB PO SCH ×2 (18:06→21:08)
[2022-10-12] MEDS ORDERED: ALBUTEROL HFA 8 GM INHALER INH SCH (19:00)
[2022-10-12] MEDS: ENOXAPARIN INJ 40 MG/0.4 ML SYR SQ SCH (21:07)
[2022-10-12] MEDS: ZOLPIDEM TARTRATE 5 MG TAB PO SCH (21:10)
[2022-10-13] MEDS: LEVOTHYROXINE SODIUM 75 MCG TABLET PO SCH (05:53)
[2022-10-13] MEDS: ALBUT/IPRATROP 3MG/0.5MG NEB 3 ML VIAL NEB SCH ×4 (06:05→19:46)
[2022-10-13] MEDS: methylPREDNISolone 4 MG TAB PO SCH ×4 (09:14→21:12)
[2022-10-13] MEDS: FLUTICASONE/VILANTEROL 200/25MCG 14 PUFFS/INHALER INH SCH (09:14)
[2022-10-13] MEDS: ATORVASTATIN 40 MG TAB PO SCH (09:15)
[2022-10-13] MEDS: PANTOprazole 40 MG TAB PO SCH (09:16)
[2022-10-13] MEDS: CEFDINIR 300 MG CAP PO SCH ×2 (09:16→21:10)
[2022-10-13] MEDS: MULTIVITAMIN TAB PO SCH (09:16)
[2022-10-13] MEDS: SERTRALINE HCL 100 MG TABLET PO SCH (09:16)
[2022-10-13] MEDS: SODIUM CHLORIDE 0.65% NA SOLN 45 ML (OCEAN) NAE SCH ×2 (09:17→21:14)
[2022-10-13] MEDS: lamoTRIgine 25 MG TAB PO SCH ×2 (09:17→21:12)
[2022-10-13] MEDS ORDERED: guaiFENesin 600 MG TABCR PO SCH (10:15)
--- NOTE | 2022-10-13 11:29 | Hospitalist Progress Note ---
Date of Service October 13, 2022 Assessment & Plan (1) Seizure: Plan: History of epilepsy and has been off Keppra for several years, last seizure was 6 years ago. Followed by [facility] neurology as outpatient. 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 Patient understands all seizure restrictions including no driving. Neurology consulted Patient initially treated with Keppra however experienced side effects, therefore changed to lamotrigine with up titration schedule. CBC should also be checked to monitor for blood dyscrasias Follow with neurology as outpatient in next few weeks. Remains seizure-free this admission. (2) Asthma exacerbation: Plan: Wheezing seems to be improved on exam today however patient reports increased cough and mucus that he is unable to expectorate. CT chest - bronchial wall thickening and mucous plugging. Add hypertonic saline nebs, Mucinex, chest PT. Suspected aspiration event during seizure. Suspect bronchitis and/or asthma exacerbation Treated with IV Solu-Medrol x 3 days and transitioned to PO prednisone on 10/12 however patient reported increased flushing and diaphoresis. 10/12 - started methylprednisolone 8 mg QID with prolonged taper if patient tolerates. Seems to be tolerating methylprednisolone from a side effect standpoint. Given ongoing wheezing, will continue 8 mg 4 times daily. Continue scheduled nebs, incentive spirometer, flutter valve, monitor peak flows On azithromycin (day 5), and cefdinir (day 4) GERD CT chest showed questionable esophagitis Continue daily PPI for now, consider increasing to twice daily or adding H2 rod (3) Cervical strain: Plan: Supportive care with scheduled APAP-improved so changed to PRN (4) Contusion of elbow, right: Plan: Supportive care, improved (5) PFO (patent foramen ovale): Plan: Per cardiology no further work-up at this time (6) Hypothyroidism: Plan: Chronic, stable, continue levothyroxine per home regimen (7) DVT prophylaxis: Plan: SQ Lovenox Disposition- Back to skilled nursing after wheezing improves. Will need to confirm with nursing staff at skilled nursing that patient has all medications readily available upon his return. Admission and Anticipated Discharge Date Admission Date: October 07, 2022 Supervising Physician Co-Signing Physician Notes delayed entry date of service noted above Attending Addendum: care coordinated with ZACH islas please refer to her notes for full details, I agree with her notes patient seen and examined, records reviewed by myself as well on exam, patient seen sitting up in bed, comfortable, not in distress Still having wheezing diagnoses and plan of care as per ZACH islas's notes Esvin Guallpa MD Subjective Follow-up for seizure, asthma exacerbation. Patient seen and examined. Patient reports increased coughing overnight and mucus that he is unable to expectorate. Seems to be tolerating the p.o. methylprednisolone better than the p.o. prednisone from a side effect standpoint. No chest pain. Denies abdominal pain or nausea. Review of Systems Review of Systems: ROS per HPI, all other systems reviewed and negative Physical Exam Constitutional: WD/WN, vitals as above Respiratory: normal respiratory effort; no respiratory distress Auscultation: + rhonchi (Occasional, scattered) and + wheezes (Bilateral, expiratory -improved from yesterday) Cardiovascular: Rate/Rhythm: regular rate and regular rhythm Vessels: normal peripheral pulses Extremities: no edema Gastrointestinal (Abdomen): Percussion/Palpation: abdomen soft; abdomen nontender Skin: no rashes, warm and dry Neurologic: no focal motor deficits Psychiatric: A+Ox3, euthymic affect Results & Data Results & Data ([facility]) Vital Signs (Past 12 Hours) Vital Signs Temp Pulse Resp BP Pulse Ox O2 Del Method 10/13/22 10:51 74 18 95 Room Air 10/13/22 07:52 Room Air 10/13/22 07:43 36.6 C 76 16 118/68 95 Room Air 10/13/22 06:06 86 16 97 Room Air (1) Cervical strain Encounter type: initial encounter Qualified Code(s): S16.1XXA - Strain of muscle, fascia and tendon at neck level, initial encounter (2) Contusion of elbow, right Encounter type: initial encounter Qualified Code(s): S50.01XA - Contusion of right elbow, initial encounter
--- NOTE | 2022-10-13 12:54 | CT Scan Report ---
CT chest diagnostic wo con CLINICAL HISTORY: persistent cough, ? Mucous plugging, asthma TECHNIQUE: Multidetector row helical CT of the chest was performed. Coronal and sagittal reformations were obtained. Automated dose lowering techniques and/or adjustment according to patient size were u tilized for this exam. CT DOSE: 417.44 mGycm Comparison: Comparison is made to CT chest 09/01/2016 FINDINGS: Lungs and pleura: Bronchial wall thickening and mucous plugging are seen most prominent in the lower lungs. Heart and pericardium: Heart size is normal. No pericardial effusion. Vessels: Mild atherosclerotic changes in the aorta and coronary arteries. Mediastinum and laura: No lymphadenopathy is seen. Esophageal wall thickening is seen distally. Chest wall and lower neck: Subcentimeter axillary lymph nodes noted. Abdomen: Unremarkable. Bones: Degenerative changes in the thoracic spine. Loss of height in the midthoracic spine is unchang ed from prior exams. IMPRESSION: 1. Bronchial wall thickening and mucous plugging is seen compatible with airways disease such as ast hma. No pneumonia is seen. 2. Distal esophageal wall thickening is seen, clinical correlation for esophagitis is recommended. ACT 112: Negative or not required by law. Electronically signed by: Wilmer Hernandes M.D. 10/13/2022 12:52 PM
[2022-10-13] MEDS: LORazepam 0.5 MG TAB PO PRN (16:16)
--- NOTE | 2022-10-13 19:41 | Electrocardiogram Report ---
Test Reason : Blood Pressure : / mmHG Vent. Rate : 089 BPM Atrial Rate : 089 BPM P-R Int : 136 ms QRS Dur : 086 ms QT Int : 368 ms P-R-T Axes : 044 016 053 degrees QTc Int : 447 ms Normal sinus rhythm Normal ECG When compared with ECG of 09-OCT-2022 05:21, No significant change was found Confirmed by Thomas Naqvi ([id number]) on 10/13/2022 7:41:12 PM Referred By: [facility] Confirmed By:Venkat Naqvi
[2022-10-13] MEDS: SODIUM CHLOR 7% 4 ML NEB NEB SCH (19:46)
[2022-10-13] MEDS: ZOLPIDEM TARTRATE 5 MG TAB PO SCH (21:09)
[2022-10-13] MEDS: ENOXAPARIN INJ 40 MG/0.4 ML SYR SQ SCH (21:11)
[2022-10-13] MEDS: guaiFENesin 600 MG TABCR PO SCH (21:13)
[2022-10-14] MEDS: LEVOTHYROXINE SODIUM 75 MCG TABLET PO SCH (05:52)
[2022-10-14] MEDS: ALBUT/IPRATROP 3MG/0.5MG NEB 3 ML VIAL NEB SCH ×4 (07:18→19:22)
[2022-10-14] MEDS: SODIUM CHLOR 7% 4 ML NEB NEB SCH ×2 (07:18→19:22)
[2022-10-14] MEDS: SERTRALINE HCL 100 MG TABLET PO SCH (10:05)
[2022-10-14] MEDS: PANTOprazole 40 MG TAB PO SCH (10:05)
[2022-10-14] MEDS: LORazepam 0.5 MG TAB PO PRN (10:08)
[2022-10-14] MEDS: methylPREDNISolone 4 MG TAB PO SCH ×2 (10:08→13:58)
[2022-10-14] MEDS: MULTIVITAMIN TAB PO SCH (10:08)
[2022-10-14] MEDS: CEFDINIR 300 MG CAP PO SCH ×2 (10:08→21:15)
[2022-10-14] MEDS: lamoTRIgine 25 MG TAB PO SCH ×2 (10:09→21:14)
[2022-10-14] MEDS: ATORVASTATIN 40 MG TAB PO SCH (10:09)
[2022-10-14] MEDS: FLUTICASONE/VILANTEROL 200/25MCG 14 PUFFS/INHALER INH SCH (10:09)
[2022-10-14] MEDS: SODIUM CHLORIDE 0.65% NA SOLN 45 ML (OCEAN) NAE SCH ×2 (10:09→21:17)
[2022-10-14] MEDS: guaiFENesin 600 MG TABCR PO SCH ×2 (10:23→21:15)
--- NOTE | 2022-10-14 15:17 | Pulmonary Consultation ---
Date of Consultation October 14, 2022 Assessment & Plan (1) Asthma exacerbation: (2) Acute bronchitis: (3) Shortness of breath: Plan CT chest 10/13/2022 personally reviewed: Small right apical bleb No mediastinal lymphadenopathy -- Acute asthma exacerbation On Wixela inhaler at home Covid-19 NAAT negative Currently on Breo and Incruse. Recommend adding Spiriva/Incruse on discharge -- Acute bronchitis Patient was not able to tolerate guaifenesin Continue with flutter valve Complete the course of antibiotic Plan: Continue with hypertonic saline, add Mucomyst nebulized Continue with flutter valve Complete the course of antibiotic Add Incruse inhaler to Breo Please note the above document was generated using voice recognition software. It may contain grammatical, syntax or spelling errors.Any formal questions or concerns about the content, text or information contained within the body of this dictation should be directly addressed to the provider for clarification. History of Present Illness Attending Physician: Esvin Guallpa MD History of Present Illness 47-year-old male presented to the hospital secondary to seizure Past medical history: Childhood asthma on Wixela, GERD, patent foramen ovale, gout, depression with anxiety, depression Pulmonary consulted because of actively wheezing while on steroids At the time of examination patient's family was in the room. Patient was saturating 96-97% on room air at the time of examination He says there is no significant change since coming to the hospital when it comes to his breathing. He is usually taking Wixela at home but he was not getting anything while he was in the senior care. He does have the feeling that he has phlegm but is not able to bring it up. Denies any nausea or vomiting No dysuria, no diarrhea. Social history: Denies smoking. Chews tobacco. 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 No birds or poultry nearby Allergies Allergy/AdvReac Type Severity Reaction Status Date / Time bee venom protein (honey bee) Allergy Severe Anaphylaxis Verified 10/07/22 03:03 animal dander Allergy Intermediate ITCHING Verified 10/07/22 03:03 EYES, SNEEZING, propoxyphene Allergy Unknown ON [facility] MED Verified 10/07/22 03:03 LIST COLD WATER AdvReac Intermediate HIVES Uncoded 10/07/22 03:03 Home Medications Medication Instructions Recorded Confirmed Type albuterol sulfate 90 mcg/actuation 2 puff inhalation Q4 PRN 09/10/18 10/07/22 History aerosol inhaler cough,sob,wheeze sertraline 100 mg tablet 100 mg PO DAILY 01/28/20 10/07/22 History albuterol sulfate 2.5 mg/3 mL 2.5 mg inhalation QID PRN 10/07/22 10/07/22 History (0.083 %) solution for nebulization Shortness Of Breath Or Wheezing atorvastatin 40 mg tablet 40 mg PO DAILY 10/07/22 10/07/22 History fluticasone 250 mcg-salmeterol 50 1 inh inhalation BID 10/07/22 10/07/22 History mcg/dose blistr powdr for inhalation (Wixela Inhub) ibuprofen 400 mg tablet 400 mg PO BID PRN Pain 10/07/22 10/07/22 History levothyroxine 75 mcg tablet 75 mcg PO DAILY 10/07/22 10/07/22 History multivitamin 1 tab PO DAILY 10/07/22 10/07/22 History omeprazole 20 mg tablet,delayed 20 mg PO DAILY 10/07/22 10/07/22 History release Patient History Medical History (Updated 10/15/22 @ 10:56 by Avtar Patricio MD, [facility]) Allergic rhinitis Asthma, moderate persistent Cervical strain Closed head injury Compression fracture of spine Concussion Depression Prior SI, per no prior suicide attempts Fall GERD (gastroesophageal reflux disease) Scalp laceration Scoliosis Tobacco use disorder Surgical History History of nasal septoplasty "Dr Coelho ([place]), [facility] [place], [place] 04/2004" History of repair of anterior cruciate ligament of left knee " L ACL 1997" Hx of total knee arthroplasty "L knee 11/2014" Family History Other Coronary heart disease Social History Smoking Status: Former smoker Tobacco Type: Smokeless Tobacco (Dip or Chew) Second Hand Exposure: No; Do You Dip or Chew Tobacco: Yes; Hx Alcohol Use: Yes Alcohol type: beer Hx Substance Use: No (denies) Preferred Language: Slovak Communication Ability: Effective Visual Impairment: No 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 Beliefs That Will Affect Care: None marital status: Current Living Situation: Other Current Living Situation Comment: senior care current occupational status: employed Other Information That Helps Us Care for You: No Feels Safe at Home: Yes Safety Concerns: Feels Safe At This Time Assistive Devices: None Review of Systems Review of Systems: All systems reviewed & are unremarkable except as noted in HPI & below Physical Exam Physical Exam: Constitutional: No acute distress HEENT: EOMI, PERRLA Respiratory system: Decreased air entry bilaterally, no crackles, positive expiratory wheeze bilaterally, positive rhonchi CVS: S1-S2 positive, no murmurs or gallops Abdomen: Soft, nontender, nondistended, positive bowel sounds x4 Extremities: +2 pulses bilaterally radialis/ dorsalis pedis, no cyanosis, no edema Neuro: Awake alert oriented x3 Psych: Normal mood and affect G/U: No Cabrera Skin: no rashes, warm and dry Lymphatic: no cervical or axillary lymphadenopathy Results & Data Results & Data ([facility]) Vital Signs (Past 12 Hours) Vital Signs Temp Pulse Resp BP Pulse Ox O2 Del Method 10/14/22 15:13 87 18 97 Room Air 10/14/22 11:33 102 H 18 97 Room Air 10/14/22 10:19 Room Air 10/14/22 07:19 72 18 98 Room Air 10/14/22 06:37 36.7 C 76 18 107/69 98 Room Air Laboratory Results 10/11/22 07:54 10/11/22 07:54 PG Care Time/CCT Total # of Minutes Spent Total Time Spent with Patient: Total time spent is greater than 50% in coordination of care (as documented) at patient's floor/unit and/or counseling patient: Coding Level of Care Code 60500 Initial Inpt Care Lvl 3 Diagnoses Asthma exacerbation J45.901 Acute bronchitis J20.9 Shortness of breath R06.02
[2022-10-14] MEDS: LIDOCAINE 5% 1 PATCH TD SCH (16:40)
[2022-10-14] MEDS: ACETAMINOPHEN 500 MG TAB PO SCH ×2 (16:40→21:16)
[2022-10-14] MEDS: ACETYLCYSTEINE 20% INHAL SOLN 4ML ***DISPENSED BY RESP. INH SCH (19:40)
[2022-10-14] MEDS: ZOLPIDEM TARTRATE 5 MG TAB PO SCH (21:11)
[2022-10-14] MEDS: methylPREDNISolone 40 MG in SYRINGE 0 ML IV SCH (21:14)
[2022-10-14] MEDS: ENOXAPARIN INJ 40 MG/0.4 ML SYR SQ SCH (21:17)
[2022-10-15] MEDS: methylPREDNISolone 40 MG in SYRINGE 0 ML IV SCH ×2 (06:01→21:36)
[2022-10-15] MEDS: LEVOTHYROXINE SODIUM 75 MCG TABLET PO SCH (06:02)
[2022-10-15] MEDS: ACETAMINOPHEN 500 MG TAB PO SCH ×3 (06:03→21:37)
[2022-10-15] MEDS: ACETYLCYSTEINE 20% INHAL SOLN 4ML ***DISPENSED BY RESP. INH SCH ×2 (07:09→18:19)
[2022-10-15] MEDS: ALBUT/IPRATROP 3MG/0.5MG NEB 3 ML VIAL NEB SCH ×4 (07:09→18:19)
[2022-10-15] MEDS: SODIUM CHLOR 7% 4 ML NEB NEB SCH ×2 (07:10→18:19)
[2022-10-15] MEDS: lamoTRIgine 25 MG TAB PO SCH ×2 (08:18→21:36)
[2022-10-15] MEDS: CEFDINIR 300 MG CAP PO SCH ×2 (08:18→21:37)
[2022-10-15] MEDS: ATORVASTATIN 40 MG TAB PO SCH (08:19)
[2022-10-15] MEDS: guaiFENesin 600 MG TABCR PO SCH ×2 (08:20→21:37)
[2022-10-15] MEDS: MULTIVITAMIN TAB PO SCH (08:20)
[2022-10-15] MEDS: SERTRALINE HCL 100 MG TABLET PO SCH (08:21)
[2022-10-15] MEDS: PANTOprazole 40 MG TAB PO SCH (08:21)
[2022-10-15] MEDS: SODIUM CHLORIDE 0.65% NA SOLN 45 ML (OCEAN) NAE SCH ×2 (08:22→21:36)
[2022-10-15] MEDS: UMECLIDINIUM BROMIDE 62.5MCG/BLISTER 7 PUFFS/INHALER INH SCH (08:22)
[2022-10-15] MEDS: FLUTICASONE/VILANTEROL 200/25MCG 14 PUFFS/INHALER INH SCH (08:22)
[2022-10-15] MEDS: LIDOCAINE 5% 1 PATCH TD SCH (08:23)
[2022-10-15] MEDS: LORazepam 0.5 MG TAB PO PRN ×2 (08:29→15:25)
--- NOTE | 2022-10-15 12:15 | Pulmonology Progress Note ---
Date of Service October 15, 2022 Assessment & Plan (1) Asthma exacerbation: (2) Acute bronchitis: (3) Shortness of breath: Plan CT chest 10/13/2022 personally reviewed: Small right apical bleb No mediastinal lymphadenopathy -- Acute asthma exacerbation On Wixela inhaler at home Covid-19 NAAT negative Currently on Breo and Incruse. Recommend adding Spiriva/Incruse on discharge -- Acute bronchitis Patient was not able to tolerate guaifenesin Continue with flutter valve Complete the course of antibiotic Plan: Continue with hypertonic saline, add Mucomyst nebulized Continue with flutter valve Complete the course of antibiotic Decreased Solu-Medrol to 40 mg twice daily Please note the above document was generated using voice recognition software. It may contain grammatical, syntax or spelling errors.Any formal questions or concerns about the content, text or information contained within the body of this dictation should be directly addressed to the provider for clarification. Admission and Anticipated Discharge Date Admission Date: October 07, 2022 Subjective Patient seen and examined at bedside. No acute distress, no adverse events overnight. Overall he says he is feeling better compared to yesterday. Is bringing up greenish phlegm. No hemoptysis No chest pain, chest tightness is improved No headache, no blurry vision Review of Systems Review of Systems: All systems reviewed & are unremarkable except as noted in Subjective Physical Exam Physical Exam: Constitutional: No acute distress HEENT: EOMI, PERRLA Respiratory system: Decreased air entry bilaterally, no crackles, positive rhonchi, positive expiratory wheeze bilaterally (improved from before) CVS: S1-S2 positive, no murmurs or gallops Abdomen: Soft, nontender, nondistended, positive bowel sounds x4 Extremities: +2 pulses bilaterally radialis/ dorsalis pedis, no cyanosis, no edema Neuro: Awake alert oriented x3 Psych: Normal mood and affect G/U: No Cabrera Skin: no rashes, warm and dry Lymphatic: no cervical or axillary lymphadenopathy Results & Data Results & Data ([facility]) Vital Signs (Past 12 Hours) Vital Signs Temp Pulse Pulse Resp BP Pulse Ox O2 Del Method 10/15/22 10:52 92 H 18 97 Room Air 10/15/22 09:41 Room Air 10/15/22 07:12 98 H 18 97 Room Air 10/15/22 05:58 36.8 C 78 16 128/80 94 Room Air Laboratory Results 10/11/22 07:54 10/11/22 07:54 PG Care Time/CCT Total # of Minutes Spent Total Time Spent with Patient: Total time spent is greater than 50% in coordination of care (as documented) at patient's floor/unit and/or counseling patient: Coding Level of Care Code 05748 Subseq Hosp Care Lvl 2 Diagnoses Asthma exacerbation J45.901 Acute bronchitis J20.9 Shortness of breath R06.02
--- NOTE | 2022-10-15 16:14 | Hospitalist Progress Note ---
Date of Service October 15, 2022 Assessment & Plan (1) Seizure: Plan: History of epilepsy and has been off Keppra for several years, last seizure was 6 years ago. Followed by [facility] neurology as outpatient. 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 Patient understands all seizure restrictions including no driving. Neurology consulted- initially treated with Keppra however experienced side effects, therefore changed to lamotrigine with up-titration schedule. CBC should also be checked to monitor for blood dyscrasias Follow with neurology as outpatient in next few weeks. Remains seizure-free this admission. (2) Asthma exacerbation: Plan: Wheezing seems to be improved on exam today however patient reports increased cough and mucus that he is unable to expectorate. CT chest - bronchial wall thickening and mucous plugging. Add hypertonic saline nebs, Mucinex, chest PT. Suspected aspiration event during seizure. Suspect bronchitis and/or asthma exacerbation Treated with IV Solu-Medrol x 3 days and transitioned to PO prednisone on 10/12 however patient reported increased flushing and diaphoresis. 10/12 - started methylprednisolone 8 mg QID with prolonged taper if patient tolerates. Seems to be tolerating methylprednisolone from a side effect standpoint. Given ongoing wheezing, will continue 8 mg 4 times daily. Continue scheduled nebs, incentive spirometer, flutter valve, monitor peak flows Completed azithromycin on 10/13, currently receiving cefdinir (day 6/7) Seen by pulmonology. Dr. Patricio recommends continued flutter valve, hypertonic saline. Added Mucomyst nebulized and Incruse inhaler. Decreased Solu-medrol to 40mg BID GERD CT chest showed questionable esophagitis Continue daily PPI for now, consider increasing to twice daily or adding H2 rod (3) Cervical strain: Plan: Supportive care with scheduled APAP-improved so changed to PRN (4) Contusion of elbow, right: Plan: Supportive care, improved (5) PFO (patent foramen ovale): Plan: Per cardiology no further work-up at this time (6) Hypothyroidism: Plan: Chronic, stable, continue levothyroxine per home regimen (7) DVT prophylaxis: Plan: SQ Lovenox Disposition- Back to snf after wheezing improves. Need to confirm with nursing staff at snf that patient has all medications readily available upon his return. Admission and Anticipated Discharge Date Admission Date: October 07, 2022 Supervising Physician Co-Signing Physician Notes delayed entry date of service noted above Attending Addendum: care coordinated with NORMA Padron please refer to her notes for full details, I agree with her notes patient seen and examined, records reviewed by myself as well diagnoses and plan of care as per NORMA Padron's notes Esvin Guallpa MD Subjective Seen and examined in 316 bed 1. Feeling much better today. With additional medications from pulmonology, patient now having more productive cough with green phlegm. Denies any hemoptysis. Chest tightness improving. No fever, chills, headache, chest pain, shortness of breath, nausea, vomiting, abdominal pain, dysuria, diarrhea or constipation. Review of Systems Review of Systems: At least ten systems reviewed and negative except as noted in the HPI. Physical Exam Physical Exam: Gen: WD/WN, NAD, sitting up in bed talking with family, A&Ox3 HEENT: Normocephalic, atraumatic, conjunctivae moist, sclerae anicteric, mucous membranes moist Lung: decreased breath sounds bilaterally, no rales, scattered rhonchi, expiratory wheezes Heart: Regular rate, regular rhythm, no murmurs, rubs, or gallops Abdomen: Soft, NT, ND +BS x 4 Extremities: no edema Skin: Warm, no rash Results & Data Results & Data ([facility]) Vital Signs (Past 12 Hours) Vital Signs Temp Pulse Pulse Resp BP Pulse Ox O2 Del Method 10/15/22 14:44 118 H 20 98 Room Air 10/15/22 14:21 36.6 C 90 16 125/75 97 Room Air 10/15/22 10:52 92 H 18 97 Room Air 10/15/22 09:41 Room Air 10/15/22 07:12 98 H 18 97 Room Air 10/15/22 05:58 36.8 C 78 16 128/80 94 Room Air all noted and reviewed including below (1) Cervical strain Encounter type: initial encounter Qualified Code(s): S16.1XXA - Strain of muscle, fascia and tendon at neck level, initial encounter (2) Contusion of elbow, right Encounter type: initial encounter Qualified Code(s): S50.01XA - Contusion of right elbow, initial encounter
[2022-10-15] MEDS: ZOLPIDEM TARTRATE 5 MG TAB PO SCH (21:35)
[2022-10-15] MEDS: ENOXAPARIN INJ 40 MG/0.4 ML SYR SQ SCH (21:35)
[2022-10-16] MEDS: LEVOTHYROXINE SODIUM 75 MCG TABLET PO SCH (05:50)
[2022-10-16] MEDS: ACETAMINOPHEN 500 MG TAB PO SCH ×3 (05:50→20:26)
[2022-10-16] MEDS: SODIUM CHLOR 7% 4 ML NEB NEB SCH ×2 (07:11→19:44)
[2022-10-16] MEDS: ALBUT/IPRATROP 3MG/0.5MG NEB 3 ML VIAL NEB SCH ×4 (07:11→19:44)
[2022-10-16] MEDS: ACETYLCYSTEINE 20% INHAL SOLN 4ML ***DISPENSED BY RESP. INH SCH ×2 (07:11→19:44)
[2022-10-16] MEDS: SERTRALINE HCL 100 MG TABLET PO SCH (08:32)
[2022-10-16] MEDS: CEFDINIR 300 MG CAP PO SCH ×2 (08:32→20:26)
[2022-10-16] MEDS: PANTOprazole 40 MG TAB PO SCH (08:32)
[2022-10-16] MEDS: ATORVASTATIN 40 MG TAB PO SCH (08:33)
[2022-10-16] MEDS: MULTIVITAMIN TAB PO SCH (08:33)
[2022-10-16] MEDS: guaiFENesin 600 MG TABCR PO SCH ×2 (08:34→20:25)
[2022-10-16] MEDS: LIDOCAINE 5% 1 PATCH TD SCH (08:36)
[2022-10-16] MEDS: SODIUM CHLORIDE 0.65% NA SOLN 45 ML (OCEAN) NAE SCH ×2 (08:38→20:25)
[2022-10-16] MEDS: FLUTICASONE/VILANTEROL 200/25MCG 14 PUFFS/INHALER INH SCH (08:38)
[2022-10-16] MEDS: UMECLIDINIUM BROMIDE 62.5MCG/BLISTER 7 PUFFS/INHALER INH SCH (08:39)
[2022-10-16] MEDS: LORazepam 0.5 MG TAB PO PRN ×3 (08:42→21:53)
[2022-10-16] MEDS: methylPREDNISolone 40 MG in SYRINGE 0 ML IV SCH (08:43)
[2022-10-16] MEDS: lamoTRIgine 25 MG TAB PO SCH ×2 (09:22→20:25)
--- NOTE | 2022-10-16 10:40 | Pulmonology Progress Note ---
Date of Service October 16, 2022 Assessment & Plan (1) Asthma exacerbation: (2) Acute bronchitis: (3) Shortness of breath: Plan CT chest 10/13/2022 personally reviewed: Small right apical bleb No mediastinal lymphadenopathy -- Acute asthma exacerbation On Wixela inhaler at home Covid-19 NAAT negative Currently on Breo and Incruse. Recommend adding Spiriva/Incruse on discharge -- Acute bronchitis Patient was not able to tolerate guaifenesin Continue with flutter valve Complete the course of antibiotic Plan: Continue with hypertonic saline, add Mucomyst nebulized Continue with flutter valve Decreased Solu-Medrol to 40 mg daily Case was discussed with Dr. Guallpa Please note the above document was generated using voice recognition software. It may contain grammatical, syntax or spelling errors.Any formal questions or concerns about the content, text or information contained within the body of this dictation should be directly addressed to the provider for clarification. Admission and Anticipated Discharge Date Admission Date: October 07, 2022 Subjective Patient seen and examined at bedside. No acute distress, no adverse events overnight Overall he says he is doing better. He still complaining of bringing up phlegm which is dark green in color. No hemoptysis Shortness of breath is getting better. Fair appetite No headache, no nausea, no vomiting No chest pain. Review of Systems Review of Systems: All systems reviewed & are unremarkable except as noted in Subjective Physical Exam Physical Exam: Constitutional: No acute distress HEENT: EOMI, PERRLA Respiratory system: Decreased air entry bilaterally, no crackles, positive rhonchi, minimal expiratory wheeze bilaterally CVS: S1-S2 positive, no murmurs or gallops Abdomen: Soft, nontender, nondistended, positive bowel sounds x4 Extremities: +2 pulses bilaterally radialis/ dorsalis pedis, no cyanosis, no edema Neuro: Awake alert oriented x3 Psych: Normal mood and affect G/U: No Cabrera Skin: no rashes, warm and dry Lymphatic: no cervical or axillary lymphadenopathy Results & Data Results & Data ([facility]) Vital Signs (Past 12 Hours) Vital Signs Temp Pulse Resp BP Pulse Ox O2 Del Method 10/16/22 07:50 Room Air 10/16/22 07:53 36.5 C 70 18 108/66 94 Room Air 10/16/22 07:14 75 18 95 Room Air Laboratory Results 10/11/22 07:54 10/11/22 07:54 PG Care Time/CCT Total # of Minutes Spent Total Time Spent with Patient: Total time spent is greater than 50% in coordination of care (as documented) at patient's floor/unit and/or counseling patient: Coding Level of Care Code 88470 Subseq Hosp Care Lvl 2 Diagnoses Asthma exacerbation J45.901 Acute bronchitis J20.9 Shortness of breath R06.02
--- NOTE | 2022-10-16 18:35 | Hospitalist Progress Note ---
Date of Service October 16, 2022 Assessment & Plan (1) Seizure: Plan: Per NORMA Padron's notes with addendum: History of epilepsy and has been off Keppra for several years, last seizure was 6 years ago. Followed by [facility] neurology as outpatient. 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 Patient understands all seizure restrictions including no driving. Neurology consulted- initially treated with Keppra however experienced side effects, therefore changed to lamotrigine with up-titration schedule. CBC should also be checked to monitor for blood dyscrasias Follow with neurology as outpatient in next few weeks. Remains seizure-free this admission. 10/16 No seizure recurrence while admitted Continue Lamictal (2) Asthma exacerbation: Plan: Wheezing seems to be improved on exam today however patient reports increased cough and mucus that he is unable to expectorate. CT chest - bronchial wall thickening and mucous plugging. Add hypertonic saline nebs, Mucinex, chest PT. Suspected aspiration event during seizure. Suspect bronchitis and/or asthma exacerbation Treated with IV Solu-Medrol x 3 days and transitioned to PO prednisone on 10/12 however patient reported increased flushing and diaphoresis. 10/12 - started methylprednisolone 8 mg QID with prolonged taper if patient tolerates. Seems to be tolerating methylprednisolone from a side effect standpoint. Given ongoing wheezing, will continue 8 mg 4 times daily. Continue scheduled nebs, incentive spirometer, flutter valve, monitor peak flows Completed azithromycin on 10/13, currently receiving cefdinir (day 6/7) Seen by pulmonology. Dr. Patricio recommends continued flutter valve, hypertonic saline. Added Mucomyst nebulized and Incruse inhaler. Decreased Solu-medrol to 40mg BID 10/16 Still having some wheezing Continue IV Solu-Medrol, nebs Pulmonary service on board GERD CT chest showed questionable esophagitis Continue daily PPI for now, consider increasing to twice daily or adding H2 rod (3) Cervical strain: Plan: Supportive care with scheduled APAP-improved so changed to PRN (4) Contusion of elbow, right: Plan: Supportive care, improved (5) PFO (patent foramen ovale): Plan: Per cardiology no further work-up at this time (6) Hypothyroidism: Plan: Chronic, stable, continue levothyroxine per home regimen (7) DVT prophylaxis: Plan: SQ Lovenox Disposition- Back to residential after wheezing improves. Need to confirm with nursing staff at residential that patient has all medications readily available upon his return. Admission and Anticipated Discharge Date Admission Date: October 07, 2022 Subjective Follow-up for asthma exacerbation, etc. Seen resting in bed, sitting up and watching TV Not in distress States breathing is improved compared to yesterday Cough also improving No other symptoms No other symptoms next Review of Systems Review of Systems: all noted and reviewed including below Physical Exam Physical Exam: General- oriented x 3, not in distress, speaks in sentences with no effort or accessory muscle use Eyes- anicteric Neck- no JVD Lungs-positive mild to moderate wheezing bilaterally No crackles Heart- normal rate, regular rhythm; no murmurs Abdomen- normal bowel sounds, nondistended, soft, no tenderness Extremities- no pretibial edema, no calf tenderness Neuro- alert, oriented x 3; no gross focal neurologic deficits Skin- warm & dry Results & Data Results & Data ([facility]) Vital Signs (Past 12 Hours) Vital Signs Temp Pulse Resp BP Pulse Ox O2 Del Method 10/16/22 16:11 37.0 C 95 H 18 135/82 96 Room Air 10/16/22 15:26 96 H 18 92 Room Air 10/16/22 11:02 80 16 95 Room Air 10/16/22 07:50 Room Air 10/16/22 07:53 36.5 C 70 18 108/66 94 Room Air 10/16/22 07:14 75 18 95 Room Air all noted and reviewed including below (1) Cervical strain Encounter type: initial encounter Qualified Code(s): S16.1XXA - Strain of muscle, fascia and tendon at neck level, initial encounter (2) Contusion of elbow, right Encounter type: initial encounter Qualified Code(s): S50.01XA - Contusion of right elbow, initial encounter
[2022-10-16] MEDS: ZOLPIDEM TARTRATE 5 MG TAB PO SCH (20:24)
[2022-10-16] MEDS: ENOXAPARIN INJ 40 MG/0.4 ML SYR SQ SCH (20:25)
[2022-10-17] MEDS: ACETAMINOPHEN 500 MG TAB PO SCH ×3 (05:47→21:22)
[2022-10-17] MEDS: LEVOTHYROXINE SODIUM 75 MCG TABLET PO SCH (05:47)
[2022-10-17] MEDS: SODIUM CHLOR 7% 4 ML NEB NEB SCH ×2 (07:14→17:50)
[2022-10-17] MEDS: ALBUT/IPRATROP 3MG/0.5MG NEB 3 ML VIAL NEB SCH ×4 (07:14→17:50)
[2022-10-17] MEDS: ACETYLCYSTEINE 20% INHAL SOLN 4ML ***DISPENSED BY RESP. INH SCH ×2 (07:14→17:50)
--- NOTE | 2022-10-17 07:23 | Pulmonology Progress Note ---
Date of Service October 17, 2022 Assessment & Plan (1) Asthma exacerbation: (2) Acute bronchitis: (3) Shortness of breath: Plan CT chest 10/13/2022 personally reviewed: Small right apical bleb No mediastinal lymphadenopathy -- Acute asthma exacerbation On Wixela inhaler at home Covid-19 NAAT negative Currently on Breo and Incruse. Recommend adding Spiriva/Incruse on discharge -- Acute bronchitis Patient was not able to tolerate guaifenesin Continue with flutter valve Complete the course of antibiotic Plan: Continue with hypertonic saline, add Mucomyst nebulized Continue with flutter valve Transition to p.o. prednisone 40 mg for 3 days followed by 20 mg for 3 days starting tomorrow. Complete the course of antibiotics for 7 days total On discharge would recommend 500/50 MCG 1 puff twice a day of Wixela. Addition of Spiriva 1.25 MCG 2 puffs once a day could also be considered Case was discussed with Dr. Guallpa Further recommendation from pulmonary perspective. We will sign off, please call directly with any questions Please note the above document was generated using voice recognition software. It may contain grammatical, syntax or spelling errors.Any formal questions or concerns about the content, text or information contained within the body of this dictation should be directly addressed to the provider for clarification. Admission and Anticipated Discharge Date Admission Date: October 07, 2022 Subjective Patient seen and examined at bedside. No acute distress, no adverse events overnight. Is able to bring up phlegm. Has decreased in intensity. Denies any mopped assist Does complain of some sore throat and pain on swallowing. No oral sores appreciated on physical exam Shortness of breath is significantly improved. No headache, fair appetite Review of Systems Review of Systems: All systems reviewed & are unremarkable except as noted in Subjective Physical Exam Physical Exam: Constitutional: No acute distress HEENT: EOMI, PERRLA, no oral thrush Respiratory system: Decreased air entry bilaterally, no crackles, positive rhonchi, minimal expiratory wheeze bilaterally CVS: S1-S2 positive, no murmurs or gallops Abdomen: Soft, nontender, nondistended, positive bowel sounds x4 Extremities: +2 pulses bilaterally radialis/ dorsalis pedis, no cyanosis, no edema Neuro: Awake alert oriented x3 Psych: Normal mood and affect G/U: No Cabrera Skin: no rashes, warm and dry Lymphatic: no cervical or axillary lymphadenopathy Results & Data Results & Data ([facility]) Vital Signs (Past 12 Hours) Vital Signs Temp Pulse Pulse Resp BP Pulse Ox O2 Del Method 10/17/22 07:14 82 18 95 Room Air 10/16/22 20:20 Room Air 10/16/22 21:48 37.1 C 98 H 16 125/62 95 Room Air 10/16/22 19:44 92 H 18 96 Room Air Laboratory Results 10/11/22 07:54 10/11/22 07:54 PG Care Time/CCT Total # of Minutes Spent Total Time Spent with Patient: Total time spent is greater than 50% in coordination of care (as documented) at patient's floor/unit and/or counseling patient: Coding Level of Care Code 37713 Subseq Hosp Care Lvl 2 Diagnoses Asthma exacerbation J45.901 Acute bronchitis J20.9 Shortness of breath R06.02
[2022-10-17] MEDS: CEFDINIR 300 MG CAP PO SCH (08:29)
[2022-10-17] MEDS: SODIUM CHLORIDE 0.65% NA SOLN 45 ML (OCEAN) NAE SCH ×2 (08:29→21:21)
[2022-10-17] MEDS: lamoTRIgine 25 MG TAB PO SCH ×2 (08:29→21:22)
[2022-10-17] MEDS: guaiFENesin 600 MG TABCR PO SCH ×2 (08:30→21:22)
[2022-10-17] MEDS: ATORVASTATIN 40 MG TAB PO SCH (08:31)
[2022-10-17] MEDS: SERTRALINE HCL 100 MG TABLET PO SCH (08:31)
[2022-10-17] MEDS: PANTOprazole 40 MG TAB PO SCH (08:31)
[2022-10-17] MEDS: MULTIVITAMIN TAB PO SCH (08:32)
[2022-10-17] MEDS: FLUTICASONE/VILANTEROL 200/25MCG 14 PUFFS/INHALER INH SCH (08:32)
[2022-10-17] MEDS: UMECLIDINIUM BROMIDE 62.5MCG/BLISTER 7 PUFFS/INHALER INH SCH (08:32)
[2022-10-17] MEDS: LIDOCAINE 5% 1 PATCH TD SCH (08:33)
[2022-10-17] MEDS: methylPREDNISolone 40 MG in SYRINGE 0 ML IV SCH (08:35)
[2022-10-17] MEDS: LORazepam 0.5 MG TAB PO PRN ×3 (08:42→21:26)
--- NOTE | 2022-10-17 15:57 | Hospitalist Progress Note ---
Date of Service October 17, 2022 Assessment & Plan (1) Seizure: Plan: Per NORMA Padron's notes with addendum: History of epilepsy and has been off Keppra for several years, last seizure was 6 years ago. Followed by [facility] neurology as outpatient. 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 Patient understands all seizure restrictions including no driving. Neurology consulted- initially treated with Keppra however experienced side effects, therefore changed to lamotrigine with up-titration schedule. CBC should also be checked to monitor for blood dyscrasias Follow with neurology as outpatient in next few weeks. Remains seizure-free this admission. 10/17 No seizure recurrence while admitted Continue Lamictal (2) Asthma exacerbation: Plan: Wheezing seems to be improved on exam today however patient reports increased cough and mucus that he is unable to expectorate. CT chest - bronchial wall thickening and mucous plugging. Add hypertonic saline nebs, Mucinex, chest PT. Suspected aspiration event during seizure. Suspect bronchitis and/or asthma exacerbation Treated with IV Solu-Medrol x 3 days and transitioned to PO prednisone on 10/12 however patient reported increased flushing and diaphoresis. 10/12 - started methylprednisolone 8 mg QID with prolonged taper if patient tolerates. Seems to be tolerating methylprednisolone from a side effect standpoint. Given ongoing wheezing, will continue 8 mg 4 times daily. Continue scheduled nebs, incentive spirometer, flutter valve, monitor peak flows Completed azithromycin on 10/13, currently receiving cefdinir (day 6/) Seen by pulmonology. Dr. Patricio recommends continued flutter valve, hypertonic saline. Added Mucomyst nebulized and Incruse inhaler. Decreased Solu-medrol to 40mg BID 10/17 wheezing improving solumedrol tapered to qdaily nebs completed Cefdinir Pulmonary service on board GERD CT chest showed questionable esophagitis Continue daily PPI for now, consider increasing to twice daily or adding H2 rod (3) Cervical strain: Plan: Supportive care with scheduled APAP-improved so changed to PRN (4) Contusion of elbow, right: Plan: Supportive care, improved (5) PFO (patent foramen ovale): Plan: Per cardiology no further work-up at this time (6) Hypothyroidism: Plan: Chronic, stable, continue levothyroxine per home regimen (7) DVT prophylaxis: Plan: SQ Lovenox Disposition- Back to skilled nursing after wheezing improves. Need to confirm with nursing staff at skilled nursing that patient has all medications readily available upon his return. Admission and Anticipated Discharge Date Admission Date: October 07, 2022 Subjective ff up for asthma exacerbation, etc seen resting in bed, comfortable states he continues to feel improved less cough had some dyspnea after walking yesterday no chest pain, fever/chills no other symptoms Review of Systems Review of Systems: all noted and negative except for above Physical Exam Physical Exam: General- oriented x 3, not in distress, speaks in sentences with no effort or accessory muscle use Eyes- anicteric Neck- no JVD Lungs-mild wheeze BL good air entry BL Heart- normal rate, regular rhythm; no murmurs Abdomen- normal bowel sounds, nondistended, soft, nontender Extremities- no pretibial edema, no calf tenderness Neuro- alert, oriented x 3; no gross focal neurologic deficits Skin- warm & dry Results & Data Results & Data ([facility]) Vital Signs (Past 12 Hours) Vital Signs Temp Pulse Resp BP Pulse Ox O2 Del Method 10/17/22 15:29 37.5 C 118 H 18 126/69 96 Room Air 10/17/22 14:57 107 H 16 95 Room Air 10/17/22 07:55 Room Air 10/17/22 11:07 88 16 94 Room Air 10/17/22 07:33 36.6 C 76 18 117/72 99 Room Air 10/17/22 07:14 82 18 95 Room Air all noted and reviewed including below (1) Cervical strain Encounter type: initial encounter Qualified Code(s): S16.1XXA - Strain of muscle, fascia and tendon at neck level, initial encounter (2) Contusion of elbow, right Encounter type: initial encounter Qualified Code(s): S50.01XA - Contusion of right elbow, initial encounter
[2022-10-17] MEDS: ZOLPIDEM TARTRATE 5 MG TAB PO SCH (21:22)
[2022-10-17] MEDS: ENOXAPARIN INJ 40 MG/0.4 ML SYR SQ SCH (21:22)
[2022-10-18] MEDS: LEVOTHYROXINE SODIUM 75 MCG TABLET PO SCH (05:44)
[2022-10-18] MEDS: ACETAMINOPHEN 500 MG TAB PO SCH ×3 (05:44→21:05)
[2022-10-18] MEDS: SODIUM CHLOR 7% 4 ML NEB NEB SCH ×2 (07:02→19:53)
[2022-10-18] MEDS: ACETYLCYSTEINE 20% INHAL SOLN 4ML ***DISPENSED BY RESP. INH SCH ×2 (07:03→19:53)
[2022-10-18] MEDS: ALBUT/IPRATROP 3MG/0.5MG NEB 3 ML VIAL NEB SCH ×4 (07:03→19:53)
[2022-10-18] MEDS: MULTIVITAMIN TAB PO SCH (10:05)
[2022-10-18] MEDS: UMECLIDINIUM BROMIDE 62.5MCG/BLISTER 7 PUFFS/INHALER INH SCH (10:05)
[2022-10-18] MEDS: FLUTICASONE/VILANTEROL 200/25MCG 14 PUFFS/INHALER INH SCH (10:05)
[2022-10-18] MEDS: methylPREDNISolone 40 MG in SYRINGE 0 ML IV SCH (10:06)
[2022-10-18] MEDS: lamoTRIgine 25 MG TAB PO SCH ×2 (10:06→21:04)
[2022-10-18] MEDS: SERTRALINE HCL 100 MG TABLET PO SCH (10:06)
[2022-10-18] MEDS: guaiFENesin 600 MG TABCR PO SCH ×2 (10:06→21:04)
[2022-10-18] MEDS: LIDOCAINE 5% 1 PATCH TD SCH (10:06)
[2022-10-18] MEDS: ATORVASTATIN 40 MG TAB PO SCH (10:06)
[2022-10-18] MEDS: SODIUM CHLORIDE 0.65% NA SOLN 45 ML (OCEAN) NAE SCH ×2 (10:07→21:03)
[2022-10-18] MEDS: PANTOprazole 40 MG TAB PO SCH (10:08)
[2022-10-18] MEDS: LORazepam 0.5 MG TAB PO PRN ×3 (10:15→22:36)
--- NOTE | 2022-10-18 20:09 | Hospitalist Progress Note ---
Date of Service October 18, 2022 delayed entry date of service noted above Assessment & Plan (1) Seizure: Plan: Per NORMA Padron's notes with addendum: History of epilepsy and has been off Keppra for several years, last seizure was 6 years ago. Followed by [facility] neurology as outpatient. 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 Patient understands all seizure restrictions including no driving. Neurology consulted- initially treated with Keppra however experienced side effects, therefore changed to lamotrigine with up-titration schedule. CBC should also be checked to monitor for blood dyscrasias Follow with neurology as outpatient in next few weeks. Remains seizure-free this admission. 10/18 No seizure recurrence while admitted Continue Lamictal (2) Asthma exacerbation: Plan: Wheezing seems to be improved on exam today however patient reports increased cough and mucus that he is unable to expectorate. CT chest - bronchial wall thickening and mucous plugging. Add hypertonic saline nebs, Mucinex, chest PT. Suspected aspiration event during seizure. Suspect bronchitis and/or asthma exacerbation Treated with IV Solu-Medrol x 3 days and transitioned to PO prednisone on 10/12 however patient reported increased flushing and diaphoresis. 10/12 - started methylprednisolone 8 mg QID with prolonged taper if patient tolerates. Seems to be tolerating methylprednisolone from a side effect standpoint. Given ongoing wheezing, will continue 8 mg 4 times daily. Continue scheduled nebs, incentive spirometer, flutter valve, monitor peak flows Completed azithromycin on 10/13, currently receiving cefdinir (day 6) Seen by pulmonology. Dr. Patricio recommends continued flutter valve, hypertonic saline. Added Mucomyst nebulized and Incruse inhaler. Decreased Solu-medrol to 40mg BID 10/18 wheezing improving daily solumedrol tapered to qdaily, continue for now nebs completed Cefdinir Pulmonary service on board GERD CT chest showed questionable esophagitis Continue daily PPI for now, consider increasing to twice daily or adding H2 rod Anxiety Patient has chronic anxiety Increased likely secondary to steroids PRN Ativan ordered (3) Cervical strain: Plan: Supportive care with scheduled APAP-improved so changed to PRN (4) Contusion of elbow, right: Plan: Supportive care, improved (5) PFO (patent foramen ovale): Plan: Per cardiology no further work-up at this time (6) Hypothyroidism: Plan: Chronic, stable, continue levothyroxine per home regimen (7) DVT prophylaxis: Plan: SQ Lovenox Disposition- Back to senior care after wheezing improves. Need to confirm with nursing staff at senior care that patient has all medications readily available upon his return. Admission and Anticipated Discharge Date Admission Date: October 07, 2022 Subjective Follow-up for acute asthma exacerbation, breakthrough seizure, etc. Seen sitting up in bed, comfortable, not in distress States breathing is improving Less cough, less shortness of breath No chest pain Still having some anxiety, some insomnia at night secondary to anxiety No other symptom Review of Systems Review of Systems: all noted and negative except for above Physical Exam Physical Exam: General- oriented x 3, not in distress, speaks in sentences with no effort or accessory muscle use Eyes- anicteric Neck- no JVD Lungs-positive mild wheeze bilaterally, improved compared to the day before No crackles Heart- normal rate, regular rhythm; no murmurs Abdomen- normal bowel sounds, nondistended, soft, no tenderness Extremities- no pretibial edema, no calf tenderness Neuro- alert, oriented x 3; no gross focal neurologic deficits Skin- warm & dry Results & Data Results & Data ([facility]) Vital Signs (Past 12 Hours) Vital Signs Temp Pulse Pulse Resp BP Pulse Ox O2 Del Method 10/18/22 19:57 102 H 18 97 Room Air 10/18/22 15:08 88 18 95 Room Air 10/18/22 14:35 37.1 C 82 18 126/72 96 Room Air 10/18/22 11:09 93 H 16 93 Room Air 10/18/22 09:43 36.8 C 75 18 139/66 94 Room Air all noted and reviewed including below (1) Cervical strain Encounter type: initial encounter Qualified Code(s): S16.1XXA - Strain of muscle, fascia and tendon at neck level, initial encounter (2) Contusion of elbow, right Encounter type: initial encounter Qualified Code(s): S50.01XA - Contusion of right elbow, initial encounter
[2022-10-18] MEDS: ENOXAPARIN INJ 40 MG/0.4 ML SYR SQ SCH (21:04)
[2022-10-18] MEDS: NICOTINE 14 MG/24 HR PATCH TD SCH (21:09)
[2022-10-18] MEDS: ZOLPIDEM TARTRATE 5 MG TAB PO SCH (22:36)
[2022-10-19] MEDS: LEVOTHYROXINE SODIUM 75 MCG TABLET PO SCH (05:51)
[2022-10-19] MEDS: ACETAMINOPHEN 500 MG TAB PO SCH ×3 (05:51→21:12)
[2022-10-19] MEDS: SODIUM CHLOR 7% 4 ML NEB NEB SCH ×2 (07:14→19:24)
[2022-10-19] MEDS: ALBUT/IPRATROP 3MG/0.5MG NEB 3 ML VIAL NEB SCH ×4 (07:14→19:24)
[2022-10-19] MEDS: ACETYLCYSTEINE 20% INHAL SOLN 4ML ***DISPENSED BY RESP. INH SCH ×2 (07:14→19:24)
[2022-10-19] MEDS: MULTIVITAMIN TAB PO SCH (08:04)
[2022-10-19] MEDS: PANTOprazole 40 MG TAB PO SCH (08:04)
[2022-10-19] MEDS: SERTRALINE HCL 100 MG TABLET PO SCH (08:04)
[2022-10-19] MEDS: methylPREDNISolone 40 MG in SYRINGE 0 ML IV SCH (08:04)
[2022-10-19] MEDS: lamoTRIgine 25 MG TAB PO SCH ×2 (08:04→21:12)
[2022-10-19] MEDS: ATORVASTATIN 40 MG TAB PO SCH (08:04)
[2022-10-19] MEDS: guaiFENesin 600 MG TABCR PO SCH ×2 (08:05→21:11)
[2022-10-19] MEDS: FLUTICASONE/VILANTEROL 200/25MCG 14 PUFFS/INHALER INH SCH (08:05)
[2022-10-19] MEDS: UMECLIDINIUM BROMIDE 62.5MCG/BLISTER 7 PUFFS/INHALER INH SCH (08:05)
[2022-10-19] MEDS: SODIUM CHLORIDE 0.65% NA SOLN 45 ML (OCEAN) NAE SCH ×2 (08:05→21:12)
[2022-10-19] MEDS: LORazepam 0.5 MG TAB PO PRN ×3 (08:05→21:15)
[2022-10-19] MEDS: LIDOCAINE 5% 1 PATCH TD SCH (08:06)
[2022-10-19] MEDS ORDERED: methylPREDNISolone 4 MG TAB, 6 DAY TAPER PO SCH (08:15)
[2022-10-19] MEDS: NICOTINE 14 MG/24 HR PATCH TD SCH (08:15)
[2022-10-19] MEDS: methylPREDNISolone 4 MG TAB PO SCH ×4 (11:43→21:12)
[2022-10-19 14:32] LABS: Basophils # (auto) 0.05 K/uL (0-0.2); Basophils % (auto) 0.4 %; Eosinophils # (auto) 0.01 K/uL (0-0.50); Eosinophils % (auto) 0.1 %; Hematocrit (blood only) 40.8 % (40.1-51.0); Hemoglobin 13.8 g/dl (14.0-18.0); Immature Granulocytes # (auto) 0.67 K/uL (0.00-0.02); Immature Granulocytes % (auto) 4.7 %; Lymphocytes % (auto) 3.5 %; Mean Corpuscular Hemoglobin 29.9 pg (25.0-34.0); Mean Corpuscular Hgb Conc 33.8 g/dL (32.0-36.0); Mean Corpuscular Volume 88.5 fL (80.0-100.0); Mean Platelet Volume 9.1 fL (9.4-12.4); Monocytes # (auto) 0.27 K/uL (0.24-0.82); Monocytes % (auto) 1.9 %; Neutrophils # (auto) 12.73 K/uL (1.4-6.5); Neutrophils % (auto) 89.4 %; Platelet Count 265 K/uL (130-400); RDW Coefficient of Variation 13.6 % (11.5-14.5); RDW Standard Deviation 43.9 fL (36.4-46.3); Red Blood Count 4.61 M/uL (4.63-6.08); White Blood Count 14.23 K/ul (4.8-10.8)
[2022-10-19 14:53] LABS: BUN Creatinine Ratio 15.6 (10-20); Calcium 9.1 mg/dl (8.5-10.1); Creatinine Clr Calc Pharmacy 128.9 ml/min; Est GFR (African American) 125.2 ml/min; Est GFR (Non-African American) 108.1 ml/min; Potassium 4.1 mmol/L (3.5-5.1)
--- NOTE | 2022-10-19 18:47 | Hospitalist Progress Note ---
Date of Service October 19, 2022 Assessment & Plan (1) Seizure: Plan: Per NORMA Padron's notes with addendum: History of epilepsy and has been off Keppra for several years, last seizure was 6 years ago. Followed by [facility] neurology as outpatient. 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 Patient understands all seizure restrictions including no driving. Neurology consulted- initially treated with Keppra however experienced side effects, therefore changed to lamotrigine with up-titration schedule. CBC should also be checked to monitor for blood dyscrasias Follow with neurology as outpatient in next few weeks. Remains seizure-free this admission. 10/19 No seizure recurrence while admitted Continue Lamictal twice a day Will need to follow-up with [facility] Neurologist upon discharge-patient known to their service (2) Asthma exacerbation: Plan: Acute bronchitis Treated with IV Solu-Medrol x 3 days and transitioned to PO prednisone on 10/12 however patient reported increased flushing and diaphoresis. CT chest - bronchial wall thickening and mucous plugging. Pulmonary service consulted Started on IV Solu-Medrol every 8 hours then tapered gradually Also given nebs 4 times daily, Mucomyst, hypertonic saline Breo Ellipta and Incruse Ellipta also started 10/19 wheezing improving daily IV Solu-Medrol converted to Solu-Medrol Dosepak Continue nebs, Breo and Incruse Ellipta Mucomyst, hypertonic saline completed Cefdinir and azithromycin Discussed with patient and his , concerned [facility] Also concerned about room having good ventilation, with no fumes or chemicals Called [facility], spoke with medical collector, Christy Relayed concerned above Emphasized the need that patient continue and be given regularly his inhalers, steroids, antiepileptic meds, etc. She said they will make sure patient's medications will be given to him regularly, also will be placed in a clean, well ventilated room Prescriptions faxed over to their office Anticipates medications will be available on , need to verify with [facility] if medications are available before discharging patient GERD CT chest showed questionable esophagitis Continue daily PPI for now, consider increasing to twice daily or adding H2 rod Anxiety Patient has chronic anxiety Increased likely secondary to steroids PRN Ativan ordered Psychiatry service consulted Patient and inquiring if he can have his medical marijuana while admitted Confirm with pharmacy, patient may have this when available (3) Cervical strain: Plan: Supportive care with scheduled APAP-improved so changed to PRN (4) Contusion of elbow, right: Plan: Supportive care, improved (5) PFO (patent foramen ovale): Plan: Per cardiology no further work-up at this time (6) Hypothyroidism: Plan: Chronic, stable, continue levothyroxine per home regimen (7) DVT prophylaxis: Plan: SQ Lovenox Disposition- Need to confirm with medical department at [facility] that patient has all medications readily available upon his return. plan of care discussed with patient and his in detail and at length all questions answered They are understanding, agreeable, comfortable with the plan of care Admission and Anticipated Discharge Date Admission Date: October 07, 2022 Subjective Follow-up for breakthrough seizure, acute asthma exacerbation, etc. Seen resting in bed, at the bedside visiting States he feels improved again today overall Breathing continues to improve, cough is minimal No fevers or chills Anxiety still present, Ativan helping Reports racing thoughts at night, poor sleep No other new symptoms Review of Systems Review of Systems: all noted and negative except for above Physical Exam Physical Exam: General- oriented x 3, not in distress, speaks in sentences with no effort or accessory muscle use Eyes- anicteric Neck- no JVD Lungs-faint wheeze bilaterally, good air entry bilaterally, no crackles Heart- normal rate, regular rhythm; no murmurs Abdomen- normal bowel sounds, nondistended, soft, no tenderness noted Extremities- no pretibial edema, no calf tenderness Neuro- alert, oriented x 3; no gross focal neurologic deficits Skin- warm & dry Results & Data Results & Data ([facility]) Vital Signs (Past 12 Hours) Vital Signs Temp Pulse Pulse Resp BP Pulse Ox O2 Del Method 10/19/22 16:56 94 H 10/19/22 15:10 107 H 18 97 Room Air 10/19/22 14:38 36.9 C 113 H 18 131/78 95 Room Air 10/19/22 11:05 107 H 18 95 Room Air 10/19/22 08:05 Room Air 10/19/22 07:17 79 18 95 Room Air 10/19/22 07:05 36.4 C L 78 18 104/69 97 Room Air all noted and reviewed including below (1) Cervical strain Encounter type: initial encounter Qualified Code(s): S16.1XXA - Strain of muscle, fascia and tendon at neck level, initial encounter (2) Contusion of elbow, right Encounter type: initial encounter Qualified Code(s): S50.01XA - Contusion of right elbow, initial encounter
[2022-10-19] MEDS: ENOXAPARIN INJ 40 MG/0.4 ML SYR SQ SCH (21:10)
[2022-10-19] MEDS: ZOLPIDEM TARTRATE 5 MG TAB PO SCH (21:10)
[2022-10-20] MEDS: ACETAMINOPHEN 500 MG TAB PO SCH ×3 (06:06→21:32)
[2022-10-20] MEDS: LEVOTHYROXINE SODIUM 75 MCG TABLET PO SCH (06:06)
[2022-10-20] MEDS: methylPREDNISolone 4 MG TAB PO SCH ×3 (06:07→17:35)
[2022-10-20] MEDS: ACETYLCYSTEINE 20% INHAL SOLN 4ML ***DISPENSED BY RESP. INH SCH ×2 (07:41→19:08)
[2022-10-20] MEDS: SODIUM CHLOR 7% 4 ML NEB NEB SCH ×2 (07:41→19:08)
[2022-10-20] MEDS: ALBUT/IPRATROP 3MG/0.5MG NEB 3 ML VIAL NEB SCH ×4 (07:41→19:08)
[2022-10-20] MEDS: FLUTICASONE/VILANTEROL 200/25MCG 14 PUFFS/INHALER INH SCH (08:50)
[2022-10-20] MEDS: UMECLIDINIUM BROMIDE 62.5MCG/BLISTER 7 PUFFS/INHALER INH SCH (08:50)
[2022-10-20] MEDS: NICOTINE 14 MG/24 HR PATCH TD SCH (08:50)
[2022-10-20] MEDS: SODIUM CHLORIDE 0.65% NA SOLN 45 ML (OCEAN) NAE SCH ×2 (08:50→21:31)
[2022-10-20] MEDS: LIDOCAINE 5% 1 PATCH TD SCH (08:51)
[2022-10-20] MEDS: PANTOprazole 40 MG TAB PO SCH (08:52)
[2022-10-20] MEDS: SERTRALINE HCL 100 MG TABLET PO SCH (08:53)
[2022-10-20] MEDS: guaiFENesin 600 MG TABCR PO SCH ×2 (08:53→21:32)
[2022-10-20] MEDS: ATORVASTATIN 40 MG TAB PO SCH (08:53)
[2022-10-20] MEDS: lamoTRIgine 25 MG TAB PO SCH ×2 (08:53→21:33)
[2022-10-20] MEDS: MULTIVITAMIN TAB PO SCH (08:53)
[2022-10-20] MEDS: LORazepam 0.5 MG TAB PO PRN ×3 (08:54→21:37)
[2022-10-20] MEDS ORDERED: methylPREDNISolone 4 MG TAB PO SCH (21:00)
[2022-10-20] MEDS: ZOLPIDEM TARTRATE 5 MG TAB PO SCH (21:31)
[2022-10-20] MEDS: ENOXAPARIN INJ 40 MG/0.4 ML SYR SQ SCH (21:33)
[2022-10-21] MEDS: LORazepam 0.5 MG TAB PO PRN ×4 (03:22→21:26)
[2022-10-21] MEDS: LEVOTHYROXINE SODIUM 75 MCG TABLET PO SCH (05:51)
[2022-10-21] MEDS: ACETAMINOPHEN 500 MG TAB PO SCH ×3 (05:51→21:26)
[2022-10-21] MEDS: methylPREDNISolone 4 MG TAB PO SCH ×4 (05:53→21:27)
[2022-10-21] MEDS: ACETYLCYSTEINE 20% INHAL SOLN 4ML ***DISPENSED BY RESP. INH SCH ×2 (07:05→19:25)
[2022-10-21] MEDS: ALBUT/IPRATROP 3MG/0.5MG NEB 3 ML VIAL NEB SCH ×4 (07:06→19:25)
[2022-10-21] MEDS: SODIUM CHLOR 7% 4 ML NEB NEB SCH ×2 (07:06→19:25)
[2022-10-21] MEDS: NICOTINE 14 MG/24 HR PATCH TD SCH (07:31)
[2022-10-21] MEDS: UMECLIDINIUM BROMIDE 62.5MCG/BLISTER 7 PUFFS/INHALER INH SCH (08:30)
[2022-10-21] MEDS: PANTOprazole 40 MG TAB PO SCH ×2 (08:30→09:11)
[2022-10-21] MEDS: ATORVASTATIN 40 MG TAB PO SCH ×2 (08:30→09:12)
[2022-10-21] MEDS: lamoTRIgine 25 MG TAB PO SCH ×3 (08:30→21:27)
[2022-10-21] MEDS: MULTIVITAMIN TAB PO SCH ×2 (08:30→09:13)
[2022-10-21] MEDS: SERTRALINE HCL 100 MG TABLET PO SCH ×2 (08:30→09:11)
[2022-10-21] MEDS: FLUTICASONE/VILANTEROL 200/25MCG 14 PUFFS/INHALER INH SCH (08:30)
[2022-10-21] MEDS: guaiFENesin 600 MG TABCR PO SCH ×3 (08:30→21:26)
[2022-10-21] MEDS: SODIUM CHLORIDE 0.65% NA SOLN 45 ML (OCEAN) NAE SCH ×2 (08:30→21:27)
[2022-10-21] MEDS: LIDOCAINE 5% 1 PATCH TD SCH (10:57)
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
--- NOTE | 2022-10-21 18:44 | XRay Report ---
KUB CLINICAL HISTORY: Nausea and vomiting. COMPARISON STUDY: CT of the abdomen and pelvis May 20, 2022. FINDINGS: The bowel gas pattern is normal. There is no evidence for a bowel obstruction. Amount of st ool is within normal limits. No urinary calculi identified. Pelvic calcifications represent phlebolit hs. IMPRESSION: No evidence for a bowel obstruction. ACT 112: Negative or not required by law. Electronically signed by: Miguel Angel Hidalgo M.D. 10/21/2022 6:43 PM
[2022-10-21] MEDS: ZOLPIDEM TARTRATE 5 MG TAB PO SCH (21:26)
[2022-10-21] MEDS: ENOXAPARIN INJ 40 MG/0.4 ML SYR SQ SCH (21:26)
[2022-10-22] MEDS: ACETAMINOPHEN 500 MG TAB PO SCH ×2 (05:37→13:34)
[2022-10-22] MEDS: LEVOTHYROXINE SODIUM 75 MCG TABLET PO SCH (05:37)
[2022-10-22] MEDS: methylPREDNISolone 4 MG TAB PO SCH ×2 (05:38→13:34)
[2022-10-22] MEDS: LORazepam 0.5 MG TAB PO PRN ×2 (05:45→12:06)
[2022-10-22] MEDS: ALBUT/IPRATROP 3MG/0.5MG NEB 3 ML VIAL NEB SCH ×2 (07:17→10:48)
[2022-10-22] MEDS: ACETYLCYSTEINE 20% INHAL SOLN 4ML ***DISPENSED BY RESP. INH SCH (07:18)
[2022-10-22] MEDS: SODIUM CHLOR 7% 4 ML NEB NEB SCH (07:18)
[2022-10-22] MEDS: guaiFENesin 600 MG TABCR PO SCH (08:07)
[2022-10-22] MEDS: SERTRALINE HCL 100 MG TABLET PO SCH (08:08)
[2022-10-22] MEDS: MULTIVITAMIN TAB PO SCH (08:08)
[2022-10-22] MEDS: ATORVASTATIN 40 MG TAB PO SCH (08:08)
[2022-10-22] MEDS: NICOTINE 14 MG/24 HR PATCH TD SCH (08:09)
[2022-10-22] MEDS: FLUTICASONE/VILANTEROL 200/25MCG 14 PUFFS/INHALER INH SCH (08:09)
[2022-10-22] MEDS: LIDOCAINE 5% 1 PATCH TD SCH (08:10)
[2022-10-22] MEDS: SODIUM CHLORIDE 0.65% NA SOLN 45 ML (OCEAN) NAE SCH (08:10)
[2022-10-22] MEDS: PANTOprazole 40 MG TAB PO SCH (08:10)
[2022-10-22] MEDS: UMECLIDINIUM BROMIDE 62.5MCG/BLISTER 7 PUFFS/INHALER INH SCH (09:02)
[2022-10-22 13:49] LABS: Appearance Urine Clear (Clear); Bilirubin Urine Negative (Negative); Blood Urine Negative (Negative); Color Urine Yellow; Glucose Urine UA Negative (Negative); Ketones Urine Negative (Negative); Leukocyte Esterase Urine Negative (Negative); Nitrite Urine Negative (Negative); Protein Urine Negative (Negative); Specific Gravity Urine 1.006 (1.000-1.030); Urobilinogen Urine Negative (Negative)
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
[2022-10-22] MEDS ORDERED: lamoTRIgine 25 MG TAB PO STA (15:03)
[2022-10-23] MEDS ORDERED: methylPREDNISolone 4 MG TAB PO SCH (07:00)
[2022-10-24] MEDS ORDERED: methylPREDNISolone 4 MG TAB PO SCH (07:00)
== END 2022-10-22 15:39 | DRG 101 ==
LOC: ED 02:50 → 2S 06:07 → SUATTDRO 06:07 → 2S 07:53 → 3E 10-11 18:59